=== PATIENT | female | born 1990 | race Hispanic/Latino ===

== ENCOUNTER 2018-02-27 16:42 | Inpatient (IN) | payer BC, MEDICAID ==
[2018-02-27] MEDS ORDERED: Sodium Chloride 0.9% 1,000 ML IV ONE ×2 (16:59→18:24)
[2018-02-27] MEDS ORDERED: Sodium Chloride 0.9% 1,000 ML ONE ×3 (17:10→21:51)
--- NOTE | 2018-02-27 17:15 | C.PDOC ---
History Of Present Illness <Leta Wilhelm - Last Filed: 02/27/18 19:00> <Jeet Blue - Last Filed: 02/27/18 20:58> 27 y/o female, with PMH of kidney stones, presents to the ER complaining of left sided flank and LLQ abdominal pain which began in the afternoon today. Patient states that she did not take any medications for the pain. Patient reports that the pain has become progressively worse and is now the worst pain and constant. She also feels nauseous and she vomited. Denies having dysuria, hematuria, fever, and chills. (Leta Wilhelm) Intractable pain- will call for obs (Jeet Blue) History Per: Patient History/Exam Limitations: no limitations Onset/Duration Of Symptoms: Hrs Current Symptoms Are (Timing): Still Present Severity: Severe Location Of Pain/Discomfort: LLQ Radiation Of Pain To:: Flank Associated Symptoms: Nausea, Vomiting. denies: Fever, Chills, Urinary Symptoms <Leta Wilhelm - Last Filed: 02/27/18 19:00> <eJet Blue - Last Filed: 02/27/18 20:58> Time Seen by Provider: 02/27/18 16:52 Chief Complaint (Nursing): Abdominal Pain Past Medical History Reviewed: Historical Data, Nursing Documentation, Vital Signs - Medical History PMH: No Chronic Diseases Surgical History: No Surg Hx Family History: States: No Known Family Hx - Social History Hx Alcohol Use: Yes Hx Substance Use: No - Immunization History Hx Tetanus Toxoid Vaccination: No Hx Influenza Vaccination: No Hx Pneumococcal Vaccination: No <Leta Wilhelm - Last Filed: 02/27/18 19:00> Vital Signs: Last Vital Signs Temp 97.7 F 02/27/18 18:32 Pulse 73 02/27/18 18:32 Resp 18 02/27/18 18:32 BP 113/75 02/27/18 18:32 Pulse Ox 100 02/27/18 19:00 Review Of Systems Constitutional: Negative for: Fever, Chills Gastrointestinal: Positive for: Nausea, Vomiting, Abdominal Pain (LLQ abdominal pain). Negative for: Diarrhea Genitourinary: Negative for: Dysuria, Hematuria <Leta Wilhelm - Last Filed: 02/27/18 19:00> Physical Exam - Physical Exam Appears: In Acute Distress (acute painful distress), Other (writhing in pain) Skin: Normal Color, Warm, Dry Head: Atraumatic, Normacephalic Eye(s): bilateral: Normal Inspection Nose: Normal Oral Mucosa: Moist Neck: Supple Chest: Symmetrical Cardiovascular: Rhythm Regular Respiratory: Normal Breath Sounds, No Rales, No Rhonchi, No Wheezing Gastrointestinal/Abdominal: Normal Exam, Soft, No Tenderness, No Guarding, No Rebound Extremity: Bilateral: Atraumatic, Normal Color And Temperature, Normal ROM Neurological/Psych: Oriented x3, Normal Speech <Leta Wilhelm - Last Filed: 02/27/18 19:00> ED Course And Treatment - Laboratory Results Result Diagrams: 02/27/18 17:27 02/27/18 17:27 O2 Sat by Pulse Oximetry: 100 (RA) Pulse Ox Interpretation: Normal - CT Scan/US CT - Abd & Pelv. Other Rad Studies (CT/US): Read By Radiologist, Radiology Report Reviewed CT/US Interpretation: PROCEDURE: CT Abdomen and Pelvis without Oral or IV contrast. HISTORY: LEFT FLANK PAIN. COMPARISON: None available. TECHNIQUE: Contiguous axial images of the abdomen and pelvis. No oral or IV contrast administered. Coronal and Sagittal reformats generated and reviewed. Radiation dose: Total exam DLP = 627.19 mGy-cm. This CT exam was performed using one or more of the following dose reduction techniques: Automated exposure control, adjustment of the mA and/or kV according to patient size, and/or use of iterative reconstruction technique. FINDINGS: There is limited evaluation of the solid organs without the administration of IV contrast. LOWER THORAX: No visible consolidation, pleural effusion, or pneumothorax. LIVER: Unremarkable unenhanced appearance. GALLBLADDER AND BILE DUCTS: Unremarkable unenhanced appearance. PANCREAS: Unremarkable unenhanced appearance. SPLEEN: Unremarkable unenhanced appearance. ADRENALS: Unremarkable unenhanced appearance. KIDNEYS AND URETERS: 3 mm proximal left ureteral calculus (series 3, image 82) with proximal hydroureter and fullness of the left renal pelvis. No right-sided hydronephrosis identified. BLADDER: Mildly thick-walled under distended urinary bladder. Small focus of air within the urinary bladder; correlate for recent instrumentation versus infection. REPRODUCTIVE: Uterus is present. APPENDIX: The appendix appears within normal limits of caliber. No secondary signs of acute appendicitis. BOWEL: The stomach is nondistended. Lack of oral contrast limits evaluation for bowel pathology. The bowel loops appear within normal limits of caliber without evidence of intestinal obstruction. PERITONEUM: No significant free fluid. No definite free air. LYMPH NODES: No bulky lymphadenopathy identified. VASCULATURE: No aortic aneurysm. BONES: No acute osseous abnormality is detected. OTHER FINDINGS: None. IMPRESSION: 3 mm proximal left ureteral calculus with proximal hydroureter and fullness of the left renal pelvis. Mildly thick-walled under distended urinary bladder. Small focus of air within the urinary bladder; correlate for recent instrumentation versus infection. Correlate with urinalysis. <Leta Wilhelm - Last Filed: 02/27/18 19:00> - Laboratory Results Result Diagrams: 02/27/18 17:27 02/27/18 17:27 <Jeet Blue - Last Filed: 02/27/18 20:58> Medical Decision Making <Leta Wilhelm - Last Filed: 02/27/18 19:00> <Jeet Blue - Last Filed: 02/27/18 20:58> Medical Decision Making: Impression: Left flank and LLQ abdominal Pain, Renal Colic Plan: * Labs * UA * Morphine IV * Toradol IV * Zofran IV Progress: Labs reviewed with no leukocytosis or other abnormality. Urine shows blood and many RBCs suggestive stone. Still pending CT. Patient continues to have pain. IV Lidocaine was ordered. 1757 CT shows 3 mm proximal left ureteral calculus with proximal hydroureter and fullness of the left renal pelvis. Patient continued to be observed in the ED. Flomax and IV NS was ordered. The patient still complained of pain, lidocaine was not readily available. 1844 Ordered additional Morphine. Case signed out to Dr Blue at 1899 pending re-eval dispo. (Leta Wilhelm) 1907 sign out recieved from DONTE Bullard- 3mm stone pending re-eval, given pain meds. Labs reviewed, Cr 0.7 imaging reviewed- L proximal utereral calculus w/ proximal hydroureter 2019 Pt still in pain, paged Medical service for admission 2043 07 page to medical service 2056 appreciate consult w/ Keli Hicks (MED) - to admit to her service appreciate consult w/ Dr. 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 - Scribe Statement The provider has reviewed the documentation as recorded by the Scribe <Leta Wilhelm - Last Filed: 02/27/18 19:00> <Jeet Blue - Last Filed: 02/27/18 20:58> - Scribe Statement Catalino Gonzales Provider Attestation All medical record entries made by the Scribe were at my direction and personally dictated by me. I have reviewed the chart and agree that the record accurately reflects my personal performance of the history, physical exam, medical decision making, and the department course for this patient. I have also personally directed, reviewed, and agree with the discharge instructions and disposition. (Leta Wilhelm)
[2018-02-27] MEDS ORDERED: Morphine 4 MG/ML VIAL ONE ×3 (17:17→21:51)
[2018-02-27 17:32] LABS: BASO % 0.4 % (0.0-2.0); EOS # 0.1 K/uL (0.0-0.7); EOS % 1.2 % (0.0-4.0); HEMOGLOBIN 12.7 g/dL (11.0-16.0); LYMPH # 2.4 K/uL (1.0-4.3); LYMPH % 34.1 % (20.0-40.0); MEAN CELL VOLUME 91.6 fL (81.0-99.0); MEAN CORPUSCULAR HEMOGLOBIN 30.3 pg (27.0-31.0); MEAN CORPUSCULAR HGB CONC 33.1 g/dL (33.0-37.0); MEAN PLATELET VOLUME 8.5 fL (7.2-11.7); MONO # 0.5 K/uL (0.0-0.8); MONO % 6.4 % (0.0-10.0); NEUT # 4.1 K/uL (1.8-7.0); NEUT % 57.9 % (50.0-75.0); RBC 4.19 Mil/uL (3.80-5.20); RED CELL DISTRIBUTION WIDTH 13.5 % (11.5-14.5); WHITE BLOOD COUNT 7.2 K/uL (4.8-10.8)
[2018-02-27 17:41] LABS: ALB/GLOB RATIO 1.7 (1.0-2.1); ALBUMIN 4.3 g/dL (3.5-5.0); ALT/SGPT 25 U/L (9-52); AST/SGOT 18 U/L (14-36); BLOOD UREA NITROGEN 11 mg/dL (7-17); CALCIUM 9.4 mg/dl (8.6-10.4); GFR NON-AFRICAN AMERICAN > 60; LIPASE 55 U/L (23-300)
[2018-02-27 17:48] LABS: SQUAMOUS EPITHIAL 1 /hpf (0-5); URINE AMORPHOUS SEDIMENT MODERATE /ul (<OCC); URINE BACTERIA RARE (<OCC); URINE BILIRUBIN NEGATIVE (NEGATIVE); URINE BLOOD 2+ (NEGATIVE); URINE CLARITY Hazy (Clear); URINE COLOR Yellow (YELLOW); URINE GLUCOSE (UA) NORMAL (Normal); URINE LEUKOCYTE ESTERASE TRACE Leu/uL (Negative); URINE PROTEIN NEGATIVE (NEGATIVE); URINE UROBILINOGEN NORMAL mg/dL (0.2-1.0)
[2018-02-27 17:52] LABS: HCG,QUALITATIVE URINE NEGATIVE (NEGATIVE)
[2018-02-27] MEDS ORDERED: SODIUM CHLORIDE 0.9% IV STA (18:02)
[2018-02-27] MEDS ORDERED: LIDOCAINE IV STA (18:02)
--- NOTE | 2018-02-27 18:13 | CT ---
PROCEDURE: CT Abdomen and Pelvis without Oral or IV contrast. HISTORY: LEFT FLANK PAIN COMPARISON: None available. TECHNIQUE: Contiguous axial images of the abdomen and pelvis. No oral or IV contrast administered. Coronal and Sagittal reformats generated and reviewed. Radiation dose: Total exam DLP = 627.19 mGy-cm. This CT exam was performed using one or more of the following dose reduction techniques: Automated exposure control, adjustment of the mA and/or kV according to patient size, and/or use of iterative reconstruction technique. FINDINGS: There is limited evaluation of the solid organs without the administration of IV contrast. LOWER THORAX: No visible consolidation, pleural effusion, or pneumothorax. LIVER: Unremarkable unenhanced appearance. GALLBLADDER AND BILE DUCTS: Unremarkable unenhanced appearance. PANCREAS: Unremarkable unenhanced appearance. SPLEEN: Unremarkable unenhanced appearance. ADRENALS: Unremarkable unenhanced appearance. KIDNEYS AND URETERS: 3 mm proximal left ureteral calculus (series 3, image 82) with proximal hydroureter and fullness of the left renal pelvis. No right-sided hydronephrosis identified. BLADDER: Mildly thick-walled under distended urinary bladder. Small focus of air within the urinary bladder; correlate for recent instrumentation versus infection. REPRODUCTIVE: Uterus is present. APPENDIX: The appendix appears within normal limits of caliber. No secondary signs of acute appendicitis. BOWEL: The stomach is nondistended. Lack of oral contrast limits evaluation for bowel pathology. The bowel loops appear within normal limits of caliber without evidence of intestinal obstruction. PERITONEUM: No significant free fluid. No definite free air. LYMPH NODES: No bulky lymphadenopathy identified. VASCULATURE: No aortic aneurysm. BONES: No acute osseous abnormality is detected. OTHER FINDINGS: None. IMPRESSION: 3 mm proximal left ureteral calculus with proximal hydroureter and fullness of the left renal pelvis. Mildly thick-walled under distended urinary bladder. Small focus of air within the urinary bladder; correlate for recent instrumentation versus infection. Correlate with urinalysis.
--- NOTE | 2018-02-27 21:56 | CP.PCM.CON ---
History of Present Illness - History of Present Illness History of Present Illness: Discussed with ER doc. 3mm stone in left upper ureter with out sig hydro temp or wbc elevation.his size wiSuggest iv fluids ,pain meds strain all urine for stone.Most stones of this size will pass spontanously,will follow Dr Banks Past Patient History - Past Social History Smoking Status: Never Smoked - NEUROLOGICAL Other/Comment: Brain malformation surgery x2 yrs ago - PSYCHIATRIC Hx Substance Use: No - SURGICAL HISTORY Other/Comment: Right shoulder surgery 2007, wishdom tooth extraction 2006 - ANESTHESIA Hx Anesthesia: No Meds Allergies/Adverse Reactions: Allergies Allergy/AdvReac Type Severity Reaction Status Date / Time No Known Allergies Allergy Unverified 02/27/18 16:47 - Medications Medications: Current Medications Sodium Chloride (Sodium Chloride 0.9%) 1,000 mls @ 100 mls/hr IV .Q10H BETHANY Tamsulosin HCl (Flomax) 0.4 mg PO ONCE ONE Stop: 02/28/18 19:32 Last Admin: 02/27/18 20:17 Dose: 0.4 mg Results - Vital Signs Recent Vital Signs: Last Vital Signs Temp 98.9 F 02/27/18 21:41 Pulse 81 02/27/18 21:41 Resp 16 02/27/18 21:41 BP 108/64 02/27/18 21:41 Pulse Ox 99 02/27/18 21:41 - Labs Result Diagrams: 02/27/18 17:27 02/27/18 17:27 Labs: Laboratory Results - last 24 hr 02/27/18 02/27/18 02/27/18 17:27 17:27 17:27 WBC 7.2 RBC 4.19 Hgb 12.7 Hct 38.4 MCV 91.6 MCH 30.3 MCHC 33.1 RDW 13.5 Plt Count 261 MPV 8.5 Neut % (Auto) 57.9 Lymph % (Auto) 34.1 [place] % (Auto) 6.4 Eos % (Auto) 1.2 Baso % (Auto) 0.4 Neut # (Auto) 4.1 Lymph # (Auto) 2.4 [place] # (Auto) 0.5 Eos # (Auto) 0.1 Baso # (Auto) 0.0 Sodium 136 Potassium 3.9 Chloride 100 Carbon Dioxide 23 Anion Gap 17 BUN 11 Creatinine 0.7 Est GFR ( Amer) > 60 Est GFR (Non-Af Amer) > 60 Random Glucose 94 Calcium 9.4 Total Bilirubin 0.5 AST 18 ALT 25 Alkaline Phosphatase 62 Total Protein 6.9 Albumin 4.3 Globulin 2.6 Albumin/Globulin Ratio 1.7 Lipase 55 Urine Color Yellow Urine Clarity Hazy Urine pH 7.0 Ur Specific [place] 1.011 Urine Protein Negative Urine Glucose (UA) Normal Urine Ketones Negative Urine Blood 2+ H Urine Nitrate Negative Urine Bilirubin Negative Urine Urobilinogen Normal Ur Leukocyte Esterase Trace Urine WBC (Auto) 4 Urine RBC (Auto) 34 H Ur Squamous Epith Cells 1 Amorphous Sediment Moderate H Urine Bacteria Rare Urine HCG, Qual Negative
[2018-02-27] MEDS ORDERED: Sodium Chloride 0.9% 1,000 ML IV SCH (22:00)
[2018-02-27] MEDS: Sodium Chloride 0.9% 1,000 ML IV SCH (23:00)
[2018-02-28] MEDS: Sodium Chloride 0.9% 1,000 ML IV SCH ×3 (06:01→22:17)
--- NOTE | 2018-02-28 09:51 | RAD ---
Date of service: 02/28/2018 HISTORY: kidney stone see ct COMPARISON: No prior. FINDINGS: BOWEL: Normal bowel gas pattern. No evidence of bowel obstruction. No masses. There is a roughly 5 mm calcification overlying the tip of the left L3 transverse process. No other abnormal intra-abdominal calcifications are appreciated. There is no hepatic or splenic enlargement appreciated. BONES: Normal. OTHER FINDINGS: None. IMPRESSION: Proximal left ureteral calculus.
--- NOTE | 2018-02-28 09:56 | CP.PCM.PN ---
Subjective - Date & Time of Evaluation Date of Evaluation: 02/28/18 Time of Evaluation: 09:56 - Subjective Subjective: H&P dictated #[id number] Objective - Vital Signs/Intake and Output Vital Signs (last 24 hours): Temp Pulse Resp BP Pulse Ox 102.4 F H 109 H 20 105/64 95 02/28/18 08:46 02/28/18 08:46 02/28/18 08:46 02/28/18 08:46 02/28/18 08:46 - Medications Medications: Current Medications Sodium Chloride (Sodium Chloride 0.9%) 1,000 mls @ 100 mls/hr IV .Q10H BETHANY Last Admin: 02/27/18 21:55 Dose: 100 mls/hr Sodium Chloride (Sodium Chloride 0.9%) 1,000 mls @ 125 mls/hr IV .Q8H BETHANY Last Admin: 02/28/18 06:01 Dose: 125 mls/hr Ceftriaxone Sodium 1 gm/ (Sodium Chloride) 100 mls @ 100 mls/hr IVPB DAILY BETHANY PRN Reason: Protocol Morphine Sulfate (Morphine) 4 mg IVP Q4 PRN PRN Reason: pain Last Admin: 02/28/18 05:52 Dose: 4 mg Tamsulosin HCl (Flomax) 0.4 mg PO ONCE ONE Stop: 02/28/18 19:32 Last Admin: 02/27/18 20:17 Dose: 0.4 mg - Labs Labs: 02/27/18 17:27 02/27/18 17:27
--- NOTE | 2018-02-28 10:40 | US ---
Date of service: 02/28/2018 PROCEDURE: Ultrasound of the Kidneys HISTORY: kidney stone r/o pyelonephritis COMPARISON: CT abdomen pelvis without contrast performed 02/27/18. TECHNIQUE: Sonogram of the kidneys. FINDINGS: RIGHT KIDNEY: Measures: 12.7 x 4.3 x 5.7 cm. Nonobstructing 7 mm upper pole calculus. No hydronephrosis. LEFT KIDNEY: Measures: 13.5 x 7.1 x 5.4 cm. Nonobstructing 5 mm midpole calculus. Mild left-sided hydronephrosis. OTHER FINDINGS: None. IMPRESSION: Bilateral nonobstructing renal calculi. Mild left-sided hydronephrosis. Please note that pyelonephritis cannot be excluded on the basis of sonography alone. Correlate clinically.
--- NOTE | 2018-02-28 11:52 | CP.PCM.PN ---
Subjective - Date & Time of Evaluation Date of Evaluation: 02/28/18 Time of Evaluation: 11:49 - Subjective Subjective: PT examined chart reviewed pt more comfortable now KUB shows stone still in upper ureter. Suggest comtinur present rx if pt fails to pass stone will stent tomorrow or fri. Jocelyn Objective - Vital Signs/Intake and Output Vital Signs (last 24 hours): Temp Pulse Resp BP Pulse Ox 102.4 F H 109 H 20 105/64 95 02/28/18 08:46 02/28/18 08:46 02/28/18 08:46 02/28/18 08:46 02/28/18 08:46 - Medications Medications: Current Medications Sodium Chloride (Sodium Chloride 0.9%) 1,000 mls @ 125 mls/hr IV .Q8H BETHANY Last Admin: 02/28/18 06:01 Dose: 125 mls/hr Ceftriaxone Sodium 1 gm/ (Sodium Chloride) 100 mls @ 100 mls/hr IVPB DAILY BETHANY PRN Reason: Protocol Last Admin: 02/28/18 11:44 Dose: 100 mls/hr Ketorolac Tromethamine (Toradol) 30 mg IVP Q8H PRN PRN Reason: Pain, moderate (4-7) Morphine Sulfate (Morphine) 4 mg IVP Q3H PRN PRN Reason: Pain, severe (8-10) Tamsulosin HCl (Flomax) 0.4 mg PO ONCE ONE Stop: 02/28/18 19:32 Last Admin: 02/27/18 20:17 Dose: 0.4 mg - Labs Labs: 02/27/18 17:27 02/27/18 17:27
[2018-02-28 12:29] LABS: ALB/GLOB RATIO 1.2 (1.0-2.1); ALBUMIN 2.8 g/dL (3.5-5.0); ALT/SGPT 23 U/L (9-52); AST/SGOT 17 U/L (14-36); BLOOD UREA NITROGEN 11 mg/dL (7-17); CALCIUM 7.6 mg/dl (8.6-10.4); GFR NON-AFRICAN AMERICAN > 60
[2018-02-28 13:54] LABS: BASO % 0.2 % (0.0-2.0); EOS # 0.1 K/uL (0.0-0.7); EOS % 0.7 % (0.0-4.0); HEMOGLOBIN 10.8 g/dL (11.0-16.0); LYMPH # 0.8 K/uL (1.0-4.3); LYMPH % 4.8 % (20.0-40.0); MEAN CELL VOLUME 91.6 fL (81.0-99.0); MEAN CORPUSCULAR HEMOGLOBIN 30.6 pg (27.0-31.0); MEAN CORPUSCULAR HGB CONC 33.4 g/dL (33.0-37.0); MEAN PLATELET VOLUME 8.1 fL (7.2-11.7); MONO # 0.2 K/uL (0.0-0.8); MONO % 1.1 % (0.0-10.0); NEUT # 15.3 K/uL (1.8-7.0); NEUT % 93.2 % (50.0-75.0); PLATELET COUNT 146 K/uL (130-400); RBC 3.52 Mil/uL (3.80-5.20); RED CELL DISTRIBUTION WIDTH 13.2 % (11.5-14.5)
[2018-02-28] MEDS: Morphine 4 MG/ML VIAL IVP PRN ×3 (13:57→20:38)
[2018-02-28 14:06] LABS: WHITE BLOOD COUNT 16.4 K/uL (4.8-10.8)
[2018-02-28 14:55] LABS: BANDS 39 % (0-2); EOSINOPHIL 1 % (0-4); LYMPHOCYTE 7 % (20-40); MONOCYTE 1 % (0-10); NEUTROPHIL 52 % (50-75); PLATELET ESTIMATE NORMAL (NORMAL); TOTAL CELLS COUNTED 100
--- NOTE | 2018-02-28 15:59 | RAD ---
Date of service: 02/28/2018 HISTORY: follow progress of stone COMPARISON: No prior. FINDINGS: BOWEL: Nonobstructive bowel gas pattern identified. No abnormal intra-abdominal calcifications although phlebolith like calcifications are identified in the inferior left pelvic soft tissues. No free intra peritoneal gas collection. BONES: Normal. OTHER FINDINGS: None. IMPRESSION: Limited phleboliths suggested suspected at the inferior left pelvis soft tissues with no abnormal intra-abdominal calcifications appreciable. Nonobstructive bowel gas pattern.
[2018-02-28] MEDS: Magnesium Sulfate 1 gm in D5W 1 GM/100 ML BAG IVPB SCH ×2 (16:12→22:29)
--- NOTE | 2018-02-28 17:43 | CP.PCM.CON ---
History of Present Illness - History of Present Illness History of Present Illness: 27 y/o female, with PMH of kidney stones, presents to the ER complaining of left sided flank and LLQ abdominal pain which began in the afternoon today. Patient states that she did not take any medications for the pain. Patient reports that the pain has become progressively worse and is now the worst pain and constant. She also feels nauseous and she vomited. was seen earlier by Dr Banks c/o now of severe pain and high fever may possibly be passing the stone? Review of Systems - Constitutional Constitutional: As Per HPI, Chills, Fever - EENT Eyes: absent: As Per HPI, Blind Spots, Blurred Vision, Change in Vision, Decreased Night Vision, Diplopia, Discharge, Dry Eye, Exophthalmos, Floaters, Irritation, Itchy Eyes, Loss of Peripheral Vision, Pain, Photophobia, Requires Corrective Lenses, Sees Flashes, Spots in Vision, Tunnel Vision, Other Visual Disturbances, Loss of Vision, Other Ears: absent: As Per HPI, Decreased Hearing, Ear Discharge, Ear Pain, Tinnitus, Abnormal Hearing, Disequilibrium, Dizziness, Other Nose/Mouth/Throat: absent: As Per HPI, Epistaxis, Nasal Congestion, Nasal Discharge, Nasal Obstruction, Nasal Trauma, Nose Pain, Post Nasal Drip, Sinus Pain, Sinus Pressure, Bleeding Gums, Change in Voice, Dental Pain, Dry Mouth, Dysphagia, Halitosis, Hoarsness, Lip Swelling, Mouth Lesions, Mouth Pain, Odynophagia, Sore Throat, Throat Swelling, Tongue Swelling, Facial Pain, Neck Pain, Neck Mass, Other - Breasts Breasts: absent: As Per HPI, Change in Shape, Mass, Pain, Nipple Discharge, Nipple Inversion, Skin Changes, Swelling, Other - Cardiovascular Cardiovascular: absent: As Per HPI, Acrocyanosis, Chest Pain, Chest Pain at Rest , Chest Pain with Activity, Claudication, Diaphoresis, Dyspnea, Dyspnea on Exertion, Edema, Irregular Heart Rhythm, Pain Radiating to Arm/Neck/Jaw, Leg Edema, Leg Ulcers, Lightheadedness, Orthopnea, Palpitations, Paroxysmal Nocturnal Dyspnea, Pedal Edema, Radiating Pain, Rapid Heart Rate, Slow Heart Rate, Syncope, Other - Respiratory Respiratory: absent: As Per HPI, Cough, Dyspnea, Hemoptysis, Dyspnea on Exertion , Wheezing, Snoring, Stridor, Pain on Inspiration, Chest Congestion, Excessive Mucous Production, Change in Mucous Color, Pain with Coughing, Other - Gastrointestinal Gastrointestinal: As Per HPI, Abdominal Pain - Genitourinary Genitourinary: As Per HPI, Change in Urinary Stream, Difficulty Urinating, Dysuria - Reproductive: Female Reproductive:Female: absent: As Per HPI, Amenorrhea, Amenorrhea/ Control, Currently Menstual, Cycle <21 Days, Cycle >35 Days, Cycle Variable, Menses 1-7 Days, Menses >/= 8 Days, Menses Variable, Cycle > 4 Weeks Between, No Menses for 6 Months, Heavy Menses, Light Menses, Normal Menses, Spotting Between Cycles , S/P Hysterectomy, Menopausal, Post Menopausal, Premenarche, Abnormal Vaginal Bleeding, Dysmenorrhea, Dyspareunia, Genital Lesions, Genital Pruritis, Pelvic Pain, Prolapse Symptoms, Sexual Dysfunction, Vaginal Discharge, Vaginal Dryness , Vaginal Odor, Vaginal Pruritis, Other - Menstruation Menstruation: absent: As Per HPI, Amenorrhea, Amenorrhea/ Control, Currently Menstual, Cycle <21 Days, Cycle >35 Days, Cycle Variable, Menses 1-7 Days, Menses >/= 8 Days, Menses Variable, Cycle > 4 Weeks Between, No Menses for 6 Months, Heavy Menses, Light Menses, Normal Menses, Spotting Between Cycles , S/P Hysterectomy, Menopausal, Post Menopausal, Premenarche, Abnormal Vaginal Bleeding, Dysmenorrhea, Other - Musculoskeletal Musculoskeletal: absent: As Per HPI, Abnormal Gait, Arthralgias, Atrophy, Back Pain, Deformity, Joint Swelling, Limited Range of Motion, Loss of Height, Muscle Cramps, Muscle Weakness, Myalgias, Neck Pain, Numbness, Radiating Pain into Limb, Stiffness, Tingling, Other - Integumentary Integumentary: absent: As Per HPI, Acne, Alopecia, Bleeding Lesions, Change in Hair, Change in Nails, Change in Pigmentation, Changing Lesions, Dry Skin, Erythema, Furuncle, Hirsutism, Lesions, New Lesions, Non-Healing Lesions, Photosensitivity, Pruritus, Rash, Skin Pain, Skin Ulcer, Sores, Striae, Swelling , Unusual Bruising, Wounds, Jaundice, Other - Neurological Neurological: absent: As Per HPI, Abnormal Gait, Abnormal Hearing, Abnormal Movements, Abnormal Speech, Behavioral Changes, Burning Sensations, Confusion, Convulsions, Disequilibrium, Dizziness, Numbness, Focal Weakness, Frequent Falls , Headaches, Lack of Coordination, Loss of Vision, Memory Loss, Paresthesias, Radicular Pain, Restless Legs, Sensory Deficit, Syncope, Tingling, Tremor, Vertigo, Weakness, Other Visual Disturbances, Other - Psychiatric Psychiatric: absent: As Per HPI, Abnormal Sleep Pattern, Anhedonia, Anxiety, Auditory Hallucinations, Behavioral Changes, Change in Appetite, Change in Libido, Confusion, Depression, Difficulty Concentrating, Hallucinations, Homicidal Ideation, Hopelessness, Irritability, Memory Loss, Mood Swings, Panic Attacks, Paranoia, Suicidal Ideation, Visual Hallucinations, Tactile Hallucinations, Other - Endocrine Endocrine: absent: As Per HPI, Change in Body Appearance, Change in Libido, Cold Intolorance, Deepening of Voice, Excessive Sweating, Fatigue, Flushing, Heat Intolorance, Increase in Ring/Shoe/Hat Size, Palpitations, Polydipsia, Polyphagia, Polyuria, Other - Hematologic/Lymphatic Hematologic: As Per HPI Past Patient History - Past Social History Smoking Status: Never Smoked - NEUROLOGICAL Other/Comment: Brain malformation surgery x2 yrs ago - MUSCULOSKELETAL/RHEUMATOLOGICAL Hx Falls: No - PSYCHIATRIC Hx Substance Use: No - SURGICAL HISTORY Other/Comment: Right shoulder surgery 2007, wishdom tooth extraction 2006 - ANESTHESIA Hx Anesthesia: No Meds Allergies/Adverse Reactions: Allergies Allergy/AdvReac Type Severity Reaction Status Date / Time No Known Allergies Allergy Unverified 02/27/18 16:47 - Medications Medications: Current Medications Acetaminophen (Tylenol 325mg Tab) 650 mg PO Q6 PRN PRN Reason: temp 101 and above Last Admin: 02/28/18 17:20 Dose: 650 mg Sodium Chloride (Sodium Chloride 0.9%) 1,000 mls @ 125 mls/hr IV .Q8H BETHANY Last Admin: 02/28/18 14:22 Dose: Not Given Ceftriaxone Sodium 1 gm/ (Sodium Chloride) 100 mls @ 100 mls/hr IVPB DAILY BETHANY PRN Reason: Protocol Last Admin: 02/28/18 11:44 Dose: 100 mls/hr Ketorolac Tromethamine (Toradol) 30 mg IVP Q8H PRN PRN Reason: Pain, moderate (4-7) Last Admin: 02/28/18 17:21 Dose: 30 mg Morphine Sulfate (Morphine) 4 mg IVP Q3H PRN PRN Reason: Pain, severe (8-10) Last Admin: 02/28/18 16:55 Dose: 4 mg Ondansetron HCl (Zofran Inj) 4 mg IVP Q8 PRN PRN Reason: nausea and vomitting Last Admin: 02/28/18 17:28 Dose: 4 mg Tamsulosin HCl (Flomax) 0.4 mg PO ONCE ONE Stop: 02/28/18 19:32 Last Admin: 02/27/18 20:17 Dose: 0.4 mg Physical Exam - Constitutional Appears: In Acute Distress - Head Exam Head Exam: ATRAUMATIC, NORMAL INSPECTION, NORMOCEPHALIC - Eye Exam Eye Exam: EOMI, PERRL. absent: Scleral icterus - ENT Exam ENT Exam: Mucous Membranes Dry, Normal External Ear Exam, Normal Oropharynx - Neck Exam Neck exam: Negative for: Lymphadenopathy - Respiratory Exam Respiratory Exam: Decreased Breath Sounds, Clear to Auscultation Bilateral - Cardiovascular Exam Cardiovascular Exam: REGULAR RHYTHM, +S1, +S2 - GI/Abdominal Exam GI & Abdominal Exam: Diminished Bowel Sounds, Distended, Guarding, Soft, Tenderness. absent: Organomegaly, Rebound, Rigid - Rectal Exam Rectal Exam: Deferred - Exam Exam: NORMAL INSPECTION - Extremities Exam Extremities exam: Positive for: pedal pulses present. Negative for: calf tenderness, pedal edema, tenderness - Back Exam Back exam: absent: CVA tenderness (L), CVA tenderness (R), paraspinal tenderness - Neurological Exam Neurological exam: Alert, CN II-XII Intact, Oriented x3, Reflexes Normal - Psychiatric Exam Psychiatric exam: Anxious - Skin Skin Exam: Dry Results - Vital Signs Recent Vital Signs: Last Vital Signs Temp 101.1 F H 02/28/18 15:30 Pulse 107 H 02/28/18 15:30 Resp 20 02/28/18 15:30 BP 100/63 02/28/18 15:30 Pulse Ox 98 02/28/18 15:30 - Labs Result Diagrams: 02/28/18 13:48 02/28/18 11:05 Labs: Laboratory Results - last 24 hr 02/27/18 02/27/18 02/28/18 17:27 17:27 11:05 WBC RBC Hgb Hct MCV MCH MCHC RDW Plt Count MPV Neut % (Auto) Lymph % (Auto) [place] % (Auto) Eos % (Auto) Baso % (Auto) Neut # (Auto) Lymph # (Auto) [place] # (Auto) Eos # (Auto) Baso # (Auto) Neutrophils % (Manual) Band Neutrophils % Lymphocytes % (Manual) Monocytes % (Manual) Eosinophils % (Manual) Platelet Estimate RBC Morphology Sodium 136 133 Potassium 3.9 3.5 L Chloride 100 102 Carbon Dioxide 23 23 Anion Gap 17 11 BUN 11 11 Creatinine 0.7 1.0 Est GFR ( Amer) > 60 > 60 Est GFR (Non-Af Amer) > 60 > 60 Random Glucose 94 126 H Calcium 9.4 7.6 L Phosphorus 2.1 L Magnesium 1.3 L Total Bilirubin 0.5 0.3 AST 18 17 ALT 25 23 Alkaline Phosphatase 62 40 Total Protein 6.9 5.2 L Albumin 4.3 2.8 L D Globulin 2.6 2.4 Albumin/Globulin Ratio 1.7 1.2 Lipase 55 Urine Color Yellow Urine Clarity Hazy Urine pH 7.0 Ur Specific [place] 1.011 Urine Protein Negative Urine Glucose (UA) Normal Urine Ketones Negative Urine Blood 2+ H Urine Nitrate Negative Urine Bilirubin Negative Urine Urobilinogen Normal Ur Leukocyte Esterase Trace Urine WBC (Auto) 4 Urine RBC (Auto) 34 H Ur Squamous Epith Cells 1 Amorphous Sediment Moderate H Urine Bacteria Rare Urine HCG, Qual Negative 02/28/18 13:48 WBC 16.4 H D RBC 3.52 L Hgb 10.8 L Hct 32.2 L MCV 91.6 MCH 30.6 MCHC 33.4 RDW 13.2 Plt Count 146 D MPV 8.1 Neut % (Auto) 93.2 H Lymph % (Auto) 4.8 L [place] % (Auto) 1.1 Eos % (Auto) 0.7 Baso % (Auto) 0.2 Neut # (Auto) 15.3 H Lymph # (Auto) 0.8 L [place] # (Auto) 0.2 Eos # (Auto) 0.1 Baso # (Auto) 0.0 Neutrophils % (Manual) 52 Band Neutrophils % 39 H* Lymphocytes % (Manual) 7 L Monocytes % (Manual) 1 Eosinophils % (Manual) 1 Platelet Estimate Normal RBC Morphology Normal Sodium Potassium Chloride Carbon Dioxide Anion Gap BUN Creatinine Est GFR ( Amer) Est GFR (Non-Af Amer) Random Glucose Calcium Phosphorus Magnesium Total Bilirubin AST ALT Alkaline Phosphatase Total Protein Albumin Globulin Albumin/Globulin Ratio Lipase Urine Color Urine Clarity Urine pH Ur Specific [place] Urine Protein Urine Glucose (UA) Urine Ketones Urine Blood Urine Nitrate Urine Bilirubin Urine Urobilinogen Ur Leukocyte Esterase Urine WBC (Auto) Urine RBC (Auto) Ur Squamous Epith Cells Amorphous Sediment Urine Bacteria Urine HCG, Qual Assessment & Plan (1) Nephrolithiasis Status: Acute - Assessment and Plan (Free Text) Assessment: fever UTI nephrolithisais no pyelo clinically Dr Banks to evaluate Plan: cont IV antibiotics
[2018-02-28] MEDS ORDERED: Magnesium Sulfate 1 gm in D5W 1 GM/100 ML BAG IVPB SCH (21:00)
[2018-02-28] MEDS ORDERED: Sodium Chloride 0.9% 1,000 ML IV ONE (21:32)
[2018-02-28] MEDS: Meropenem 1 GM in Sodium Chloride 0.9% 100 ML IVPB SCH (22:51)
[2018-03-01 00:31] LABS: ARTERIAL BLOOD GAS HCO3 18.2 mmol/L (21-28); ARTERIAL BLOOD GAS O2 SAT 99.8 % (95-98); ARTERIAL BLOOD GAS PCO2 28 mm/Hg (35-45); ARTERIAL BLOOD GAS PH 7.35 (7.35-7.45); ARTERIAL BLOOD GAS PO2 101 mm/Hg (80-100); ARTERIAL BLOOD GAS TCO2 16.4 mmol/L (22-28)
--- NOTE | 2018-03-01 00:45 | CP.PCM.CON ---
History of Present Illness - History of Present Illness History of Present Illness: 27yo F. PMHx nephrolithiasis, brain surgery for congenital cysts/malformation. p/w recurrent left kidney stone, 3mm, c/b gram negative sepsis. Transferred to ICU for closer monitoring. Review of Systems - Review of Systems All systems: reviewed and no additional remarkable complaints except - Genitourinary Genitourinary: Flank Pain Past Patient History - Past Social History Smoking Status: Never Smoked - NEUROLOGICAL Other/Comment: Brain malformation surgery x2 yrs ago - MUSCULOSKELETAL/RHEUMATOLOGICAL Hx Falls: No - PSYCHIATRIC Hx Substance Use: No - SURGICAL HISTORY Other/Comment: Right shoulder surgery 2007, wishdom tooth extraction 2006 - ANESTHESIA Hx Anesthesia: No Meds Allergies/Adverse Reactions: Allergies Allergy/AdvReac Type Severity Reaction Status Date / Time No Known Allergies Allergy Unverified 02/27/18 16:47 - Medications Medications: Current Medications Acetaminophen (Tylenol 325mg Tab) 650 mg PO Q6 PRN PRN Reason: temp 101 and above Last Admin: 02/28/18 17:20 Dose: 650 mg Sodium Chloride (Sodium Chloride 0.9%) 1,000 mls @ 125 mls/hr IV .Q8H BETHANY Last Admin: 02/28/18 22:17 Dose: 125 mls/hr Cefepime HCl 1 gm/ Dextrose 50 mls @ 100 mls/hr IVPB Q8H BETHANY PRN Reason: Protocol Last Admin: 02/28/18 19:03 Dose: 100 mls/hr Gentamicin Sulfate 350 mg/ (Sodium Chloride) 258.75 mls @ 250 mls/hr IVPB Q24H BETHANY PRN Reason: Protocol Meropenem 1 gm/ Sodium (Chloride) 100 mls @ 100 mls/hr IVPB Q6H BETHANY PRN Reason: Protocol Last Admin: 02/28/18 22:51 Dose: 100 mls/hr Ketorolac Tromethamine (Toradol) 30 mg IVP Q8H PRN PRN Reason: Pain, moderate (4-7) Last Admin: 02/28/18 17:21 Dose: 30 mg Morphine Sulfate (Morphine) 1 mg IVP Q3H PRN PRN Reason: Pain, severe (8-10) Ondansetron HCl (Zofran Inj) 4 mg IVP Q8 PRN PRN Reason: nausea and vomitting Last Admin: 02/28/18 17:28 Dose: 4 mg Physical Exam - Constitutional Appears: Toxic - Head Exam Head Exam: ATRAUMATIC, NORMAL INSPECTION, NORMOCEPHALIC - Eye Exam Eye Exam: EOMI, Normal appearance, PERRL Pupil Exam: NORMAL ACCOMODATION, PERRL - ENT Exam ENT Exam: Mucous Membranes Dry - Respiratory Exam Respiratory Exam: Clear to Auscultation Bilateral, NORMAL BREATHING PATTERN - Cardiovascular Exam Cardiovascular Exam: Tachycardia - GI/Abdominal Exam GI & Abdominal Exam: Normal Bowel Sounds, Soft. absent: Tenderness - Neurological Exam Neurological exam: Alert, CN II-XII Intact, Oriented x3 - Psychiatric Exam Psychiatric exam: Anxious Results - Vital Signs Recent Vital Signs: Last Vital Signs Temp 99.1 F 03/01/18 00:00 Pulse 110 H 03/01/18 00:00 Resp 20 03/01/18 00:00 BP 89/59 L 03/01/18 00:00 Pulse Ox 97 03/01/18 00:00 - Labs Result Diagrams: 02/28/18 13:48 02/28/18 11:05 Labs: Laboratory Results - last 24 hr 02/28/18 02/28/18 02/28/18 11:05 13:48 19:50 WBC 16.4 H D RBC 3.52 L Hgb 10.8 L Hct 32.2 L MCV 91.6 MCH 30.6 MCHC 33.4 RDW 13.2 Plt Count 146 D MPV 8.1 Neut % (Auto) 93.2 H Lymph % (Auto) 4.8 L [place] % (Auto) 1.1 Eos % (Auto) 0.7 Baso % (Auto) 0.2 Neut # (Auto) 15.3 H Lymph # (Auto) 0.8 L [place] # (Auto) 0.2 Eos # (Auto) 0.1 Baso # (Auto) 0.0 Neutrophils % (Manual) 52 Band Neutrophils % 39 H* Lymphocytes % (Manual) 7 L Monocytes % (Manual) 1 Eosinophils % (Manual) 1 Platelet Estimate Normal RBC Morphology Normal Puncture Site pCO2 pO2 HCO3 ABG pH ABG Total CO2 ABG O2 Saturation ABG Base Excess [place] Test ABG Potassium A-a O2 Difference Respiratory Index Glucose Lactate FiO2 Sodium 133 Potassium 3.5 L Chloride 102 Carbon Dioxide 23 Anion Gap 11 BUN 11 Creatinine 1.0 Est GFR ( Amer) > 60 Est GFR (Non-Af Amer) > 60 Random Glucose 126 H Lactic Acid Calcium 7.6 L Phosphorus 2.1 L Magnesium 1.3 L Total Bilirubin 0.3 AST 17 ALT 23 Alkaline Phosphatase 40 Total Protein 5.2 L Albumin 2.8 L D Globulin 2.4 Albumin/Globulin Ratio 1.2 Procalcitonin 7.15 H Arterial Blood Potassium 02/28/18 03/01/18 19:50 00:25 WBC RBC Hgb Hct MCV MCH MCHC RDW Plt Count MPV Neut % (Auto) Lymph % (Auto) [place] % (Auto) Eos % (Auto) Baso % (Auto) Neut # (Auto) Lymph # (Auto) [place] # (Auto) Eos # (Auto) Baso # (Auto) Neutrophils % (Manual) Band Neutrophils % Lymphocytes % (Manual) Monocytes % (Manual) Eosinophils % (Manual) Platelet Estimate RBC Morphology Puncture Site Lb pCO2 28 L pO2 101 H HCO3 18.2 L ABG pH 7.35 ABG Total CO2 16.4 L ABG O2 Saturation 99.8 H ABG Base Excess -8.6 L [place] Test Na ABG Potassium 2.9 L A-a O2 Difference 577.0 Respiratory Index 5.7 Glucose 130 H Lactate 2.9 H FiO2 100.0 Sodium 135.0 Potassium Chloride 108.0 H Carbon Dioxide Anion Gap BUN Creatinine Est GFR ( Amer) Est GFR (Non-Af Amer) Random Glucose Lactic Acid 3.5 H Calcium Phosphorus Magnesium Total Bilirubin AST ALT Alkaline Phosphatase Total Protein Albumin Globulin Albumin/Globulin Ratio Procalcitonin Arterial Blood Potassium 2.9 L Assessment & Plan (1) Nephrolithiasis Assessment and Plan: 27yo F. PMHx nephrolithiasis, brain surgery for congenital cysts/malformation. p/w recurrent left kidney stone, 3mm, c/b gram negative sepsis. Neuro: alert and oriented x 3 Pulm: tachypnea, and hypoxia, obtaining CXR, currently on NRB. CV: hypotensive, fluid responsive, may need to start Levophed. Hem: no acute issues Renal: oliguria, LR@150 Endo: no acute issues GI: NPO ID: sepsis from obstructive uropathy secondary to left ureteral nephrolithiasis , now with gram negative bacteremia, continue Meropenem and Gentamicin. DVT proph - heparin sq GI proph - not currently indicated zimmer for strict I/O's during acute illness Code status - full code Critical Care Time spent 35 minutes The documented time is cumulative and includes review of patient data/exams/labs /chart review and examination of the patient on rounds and throughout the day; time is exclusive of any procedures or teaching time. Status: Acute
[2018-03-01] MEDS ORDERED: HYDROmorphone 1 mg/ml ISec IVP STA (01:07)
[2018-03-01] MEDS ORDERED: Lactated Ringer's 1,000 ML IV ONE (01:29)
--- NOTE | 2018-03-01 02:23 | HP ---
CHIEF COMPLAINT: Left flank pain which started yesterday afternoon, progressively getting worse, associated with nausea and vomiting. HISTORY OF PRESENT ILLNESS: Ms. Owens is a 27-year-old female with past medical history of renal stones at age 19, status post Chiari malformation surgery, not on any antiseizure medication, depression, seasonal allergies, and migraine headaches, who has been following up the doctors from the [facility], came into the emergency room, brought in by EMS as the patient started having left flank pain which started yesterday afternoon while she was at work. As per the patient, she was at work, started suddenly noticing left flank pain, was sharp in nature, radiating down, progressively got worse, pain was 10/10 associated with nausea and vomiting. Denied any headache or dizziness. Denied any chest pain, shortness of breath, or wheezing. Denied any diarrhea or constipation. Denied any urinary complaints. Denied any leg pains or leg cramps. Denied any other neurologic symptoms. PAST MEDICAL HISTORY: As described, renal stones, Chiari malformation history, migraine headaches, and depression. PAST SURGICAL HISTORY: Chiari malformation surgery done about 5 years ago in [place]; right shoulder surgery in 2007. FAMILY HISTORY: Kidney stones in uncle. PERSONAL HISTORY: She is single, not having any children, working at [employer]. SOCIAL HISTORY: Denies smoking, drinks alcohol socially. Denies any drug abuse. ALLERGIES: NO KNOWN DRUG ALLERGIES. MEDICATIONS: At home include Zoloft 50 mg daily and Claritin as needed. REVIEW OF SYSTEMS: As described in history of present illness, all other systems reviewed and were found to be negative. PHYSICAL EXAMINATION: GENERAL: A young female, lying in bed, in no acute distress. VITAL SIGNS: Blood pressure 105/64, pulse 109, respirations 20, temperature 102.4 degrees Fahrenheit, and O2 saturations 95% on room air. HEENT: Pupils equal, round, and reacting to light and accommodation. Extraocular muscles are intact. No icterus, no pallor, no oral thrush, no pharyngeal congestion. NECK: Supple, no JVD. LUNGS: Bilateral vesicular breath sounds. No wheezing, no rhonchi. CVS: S1 and S2 present, regular. ABDOMEN: Soft, left flank tenderness noted and tenderness in the left lumbar and left lower quadrant regions. No guarding, no rigidity, and no rebound tenderness noted. CENTRAL NERVOUS SYSTEM: Alert, awake, and oriented x3, no focal deficits noted. EXTREMITIES: No edema, palpable peripheral pulses. LABORATORY DATA: Labs done from the emergency room: WBC 7.2, hemoglobin 12.7, hematocrit 38.4, platelets 261. Sodium 136, potassium 3.9, chloride 100, bicarbonate 23, BUN 11, creatinine 0.7, glucose 94, calcium 9.4, total bilirubin 0.5, AST 18, ALT 25, alkaline phosphatase 62, total protein 6.9, albumin 4.3, lipase 55. UA, specific gravity 1.011, pH 7, blood 2+, rbc 34, sediment noted. Urine culture sent from ED, blood cultures not done. CT of the abdomen and pelvis shows 3 mm proximal left ureteral calculus with proximal hydroureter and fullness of the left renal pelvis, mildly thick wall under distended urinary bladder, small focus of air within the urinary bladder. Abdominal x-ray consistent with proximal left ureteral calculus. Renal ultrasound consistent with bilateral non-obstructing renal calculi, and mild left-sided hydronephrosis. ASSESSMENT AND PLAN: Young female with history of renal stones and Chiari malformation, status post surgery, came in with left flank pain, nausea, and vomiting. In the emergency department, the patient was found to be having left ureteral calculus with mild hydronephrosis left side, and the patient has been having intractable nausea and vomiting, and the patient is being admitted. The patient developed fever up to 102 this morning. The patient is being admitted for further management. 1. Left renal colic. 2. Fever with left flank pain, rule out sepsis, rule out pyelonephritis. 3. History of migraine headaches and Chiari malformation, now stable. PLAN: The patient is being admitted to the medical floor. We will give hydration and strain all the urine to see if the patient passes the stone. We will start clear liquids, give Zofran as needed. We will give pain medication with morphine. The patient claims that she needs morphine at shorter intervals, at 3-hour intervals. We will give morphine every 3 hours with Toradol for breakthrough pain. We will repeat blood cultures, urine cultures. Check CBC and CMP. We will start Rocephin 1 g IV empirically pending urine culture and blood culture results. Urology consult appreciated. We will add further recommendation as her clinical course progresses. The patient's boyfriend is at bedside, clarified all their questions and concerns. Rajiv Krishna MD
[2018-03-01] MEDS: Lactated Ringer's 1,000 ML IV SCH ×4 (02:34→21:13)
[2018-03-01] MEDS: Meropenem 1 GM in Sodium Chloride 0.9% 100 ML IVPB SCH ×4 (04:10→21:11)
--- NOTE | 2018-03-01 04:23 | PCM.SEPTIC ---
Sepsis Progress Note - Reassessment Type Date of Evaluation: 03/01/18 Time of Evaluation: 04:00 Reassessment Type: Non-invasive reassessment - Non Invasive Reassessment Were the most recent vital sign reviewed: Yes Vital Sign (Latest): Temp Pulse Resp BP Pulse Ox 99.1 F 110 H 20 89/59 L 97 03/01/18 00:00 03/01/18 00:00 03/01/18 00:00 03/01/18 00:00 03/01/18 00:00 Cardiovascular: Yes: Edema (Right Upper Ext. ), Tachycardia. No: Regular Rate , Rhythm, Chest Non Tender (Right Chest Wall Tenderness), JVD, Murmur, Bradycardia, Ectopy, Friction Rub, Irregularly Irregular Respiratory: Yes: Normal Breath Sounds. No: Accessory Muscle Use, Crackles, Rales, Rhonchi, Wheezing, Plerual Rub Capillary Refill: Delayed Pulses: Decreased Radial Skin: Dry, Pale
[2018-03-01] MEDS: HYDROmorphone 1 mg/ml ISec IVP PRN ×4 (05:08→21:18)
[2018-03-01 06:27] LABS: BASO % 0.1 % (0.0-2.0); EOS # 0.2 K/uL (0.0-0.7); HEMOGLOBIN 10.6 g/dL (11.0-16.0); LYMPH # 0.5 K/uL (1.0-4.3); LYMPH % 2.3 % (20.0-40.0); MEAN CELL VOLUME 93.4 fL (81.0-99.0); MEAN CORPUSCULAR HEMOGLOBIN 30.1 pg (27.0-31.0); MEAN CORPUSCULAR HGB CONC 32.3 g/dL (33.0-37.0); MEAN PLATELET VOLUME 8.7 fL (7.2-11.7); MONO # 0.4 K/uL (0.0-0.8); NEUT # 19.6 K/uL (1.8-7.0); NEUT % 94.6 % (50.0-75.0); PLATELET COUNT 101 K/uL (130-400); RBC 3.52 Mil/uL (3.80-5.20); WHITE BLOOD COUNT 20.7 K/uL (4.8-10.8)
[2018-03-01 06:30] LABS: SQUAMOUS EPITHIAL 1 /hpf (0-5); URINE BILIRUBIN NEGATIVE (NEGATIVE); URINE CLARITY Clear (Clear); URINE COLOR Yellow (YELLOW); URINE GLUCOSE (UA) 1+ mg/dL (Normal); URINE HYALINE CAST 0-2 /lpf (0-2); URINE LEUKOCYTE ESTERASE TRACE Leu/uL (Negative); URINE PROTEIN 2+ mg/dL (NEGATIVE); URINE UROBILINOGEN NORMAL mg/dL (0.2-1.0)
[2018-03-01 06:31] LABS: URINE BLOOD 1+ (NEGATIVE)
[2018-03-01 06:43] LABS: ALBUMIN 2.5 g/dL (3.5-5.0); CALCIUM 6.9 mg/dl (8.6-10.4)
--- NOTE | 2018-03-01 08:01 | RAD ---
Date of service: 03/01/2018 HISTORY: SOB COMPARISON: No prior. FINDINGS: LUNGS: Linear atelectasis or fibrosis is seen at the inferior left lung zone. No alveolitis bilaterally. Nipple shadow identified at the left lung base with this area clear in lung base sections from prior abdomen pelvis CT 02/27/2018. PLEURA: No significant pleural effusion identified, no pneumothorax apparent. CARDIOVASCULAR: Normal. OSSEOUS STRUCTURES: No significant abnormalities. VISUALIZED UPPER ABDOMEN: Normal. OTHER FINDINGS: None. IMPRESSION: Linear atelectasis or fibrosis seen at the inferior left lung zone. No acute infiltrate pleural effusion or pneumothorax bilaterally.
--- NOTE | 2018-03-01 08:07 | CP.PCM.PN ---
Subjective - Date & Time of Evaluation Date of Evaluation: 02/28/18 Time of Evaluation: 23:00 - Subjective Subjective: Patient seen last night when code sepsis was called. 27 F admitted with left proximal ureteric calculus on 02/27, developed fever on 02/28, the calculus moved from proximal to mid vs distal ureter. Patient become hypotensive, elevated lactate, when code sepsis called. Patient still awake and oriented, fluid boluses stared, abx changed to gentamycin 5mg/kg daily dose, meorpenium 1g q6h. Patient was also accepted for ICU. In the later course of the night patient became sob and hypoxic needing 100% NRB, and patient was transferred to ICU. In ICU O2 requirement titrated down to 6 lit via nc. Patient till this morning got about 5 liters of the fluid, urine output about 250ml overnight. Clear reason for hypoxia not known sepsis, or sepsis related cardiomyopathy, 3rd spacing. Patient currently being managed in ICU. Will need window of time when bp stable and could go for stent placement. If sepsis/shock prolongs will also need imaging with CT and echo to confirm cause of hypoxia, r/o any abscess, and if significant hydropresent may need urostomy tube. Objective - Vital Signs/Intake and Output Vital Signs (last 24 hours): Temp Pulse Resp BP Pulse Ox 99.4 F 98 H 25 H 80/50 L 89 L 03/01/18 04:00 03/01/18 07:10 03/01/18 07:10 03/01/18 06:52 03/01/18 07:10 Intake and Output: 03/01/18 03/01/18 06:59 18:59 Intake Total 4400 100 Output Total 250 Balance 4150 100 - Medications Medications: Current Medications Acetaminophen (Tylenol 325mg Tab) 650 mg PO Q6 PRN PRN Reason: temp 101 and above Last Admin: 02/28/18 17:20 Dose: 650 mg Heparin Sodium (Porcine) (Heparin) 5,000 units SC Q12 [facility] Hydromorphone HCl (Dilaudid) 1 mg IVP Q4H PRN PRN Reason: pain 5-10 Last Admin: 03/01/18 05:08 Dose: 1 mg Gentamicin Sulfate 350 mg/ (Sodium Chloride) 258.75 mls @ 250 mls/hr IVPB Q24H [facility] PRN Reason: Protocol Last Admin: 03/01/18 00:00 Dose: 250 mls/hr Meropenem 1 gm/ Sodium (Chloride) 100 mls @ 100 mls/hr IVPB Q6H [facility] PRN Reason: Protocol Last Admin: 03/01/18 04:10 Dose: 100 mls/hr Lactated Ringer's (Lactated Ringer's) 1,000 mls @ 150 mls/hr IV .Q6H40M [facility] Last Admin: 03/01/18 02:34 Dose: 150 mls/hr Ondansetron HCl (Zofran Inj) 4 mg IVP Q8 PRN PRN Reason: nausea and vomitting Last Admin: 03/01/18 01:39 Dose: 4 mg Sertraline HCl (Zoloft) 50 mg PO DAILY [facility] Last Admin: 03/01/18 05:13 Dose: 50 mg - Labs Labs: 03/01/18 06:17 03/01/18 06:17
[2018-03-01 08:37] LABS: BANDS 36 % (0-2); EOSINOPHIL 2 % (0-4); LYMPHOCYTE 3 % (20-40); MONOCYTE 2 % (0-10); NEUTROPHIL 57 % (50-75); PLATELET ESTIMATE DECREASED (NORMAL); TOTAL CELLS COUNTED 100
[2018-03-01 08:38] LABS: POIKILOCYTOSIS SLIGHT
[2018-03-01] MEDS ORDERED: Sodium Chloride 0.9% 1,000 ML IV ONE (09:20)
--- NOTE | 2018-03-01 09:59 | CP.PCM.PN ---
Subjective - Date & Time of Evaluation Date of Evaluation: 03/01/18 Time of Evaluation: 09:59 - Subjective Subjective: Progress note dictated #[id number] Objective - Vital Signs/Intake and Output Vital Signs (last 24 hours): Temp Pulse Resp BP Pulse Ox 99.4 F 126 H 26 H 80/63 L 98 03/01/18 08:00 03/01/18 09:30 03/01/18 09:30 03/01/18 09:14 03/01/18 09:30 Intake and Output: 03/01/18 03/01/18 06:59 18:59 Intake Total 4400 250 Output Total 250 75 Balance 4150 175 - Medications Medications: Current Medications Acetaminophen (Tylenol 325mg Tab) 650 mg PO Q6 PRN PRN Reason: temp 101 and above Last Admin: 02/28/18 17:20 Dose: 650 mg Heparin Sodium (Porcine) (Heparin) 5,000 units SC Q12 [facility] Hydromorphone HCl (Dilaudid) 1 mg IVP Q4H PRN PRN Reason: pain 5-10 Last Admin: 03/01/18 09:21 Dose: 1 mg Gentamicin Sulfate 350 mg/ (Sodium Chloride) 258.75 mls @ 250 mls/hr IVPB Q24H [facility] PRN Reason: Protocol Last Admin: 03/01/18 00:00 Dose: 250 mls/hr Meropenem 1 gm/ Sodium (Chloride) 100 mls @ 100 mls/hr IVPB Q6H [facility] PRN Reason: Protocol Last Admin: 03/01/18 09:34 Dose: 100 mls/hr Lactated Ringer's (Lactated Ringer's) 1,000 mls @ 150 mls/hr IV .Q6H40M [facility] Last Admin: 03/01/18 08:24 Dose: 150 mls/hr Ondansetron HCl (Zofran Inj) 4 mg IVP Q8 PRN PRN Reason: nausea and vomitting Last Admin: 03/01/18 01:39 Dose: 4 mg Sertraline HCl (Zoloft) 50 mg PO DAILY [facility] Last Admin: 03/01/18 05:13 Dose: 50 mg - Labs Labs: 03/01/18 06:17 03/01/18 06:17
--- NOTE | 2018-03-01 11:12 | CT ---
Date of service: 03/01/18 CT chest, abdomen, and pelvis without IV contrast Indication: Sepsis from ureteral calculus, hypoxia. Technique: Contiguous axial images of the chest, abdomen, and pelvis without oral or IV contrast. Coronal and Sagittal reformats generated and reviewed. This CT exam was performed using 1 or more of the following dose reduction techniques: Automated exposure control, adjustment of the MAA and/or kV according to patient size, and/or use of iterative reconstruction technique. Radiation dose: Total exam DLP = 1013.04 MGy-cm. Comparison: Chest x-ray performed 03/01/18, CT abdomen and pelvis without contrast performed 02/27/18 Findings: Visualized portions of the inferior thyroid gland appear unremarkable. The unenhanced mediastinal and hilar vascular structures appear grossly unremarkable. The heart appears within normal limits of size. Small pericardial effusion. Small to moderate bilateral pleural effusions and compressive consolidations. Additional patchy dependent infiltrates. Heterogeneous hepatic parenchyma. Hepatomegaly. Gallbladder distension and peripancreatic edema/wall thickening. Punctate nonobstructing right renal calculi. Mild left-sided hydronephrosis. Distal left ureteral calculus is not definitively seen. Pelvic calcifications, may represent phleboliths however distal ureteral calculus is not excluded. The noncontrast spleen, pancreas, and adrenal glands appear grossly unremarkable. Interval development of abdominal and pelvic ascites. The stomach is nondistended. Lack of oral contrast limits evaluation for bowel pathology. The bowel loops appear within normal limits of caliber without evidence of intestinal obstruction. There is no definite free air. Uterus is present. Abebe catheter within the urinary bladder containing air. Under distention of the urinary bladder limits evaluation. No acute osseous abnormality is detected. Impression: Small pericardial effusion. Small to moderate bilateral pleural effusions and compressive consolidations. Additional patchy dependent infiltrates. Heterogeneous hepatic parenchyma. Hepatomegaly. Gallbladder distension and peripancreatic edema/wall thickening. Punctate nonobstructing right renal calculi. Mild left-sided hydronephrosis. Distal left ureteral calculus is not definitively seen. Pelvic calcifications, may represent phleboliths however distal ureteral calculus is not excluded. Interval development of abdominal and pelvic ascites. Abebe catheter within the urinary bladder containing air. Under distention of the urinary bladder limits evaluation.
--- NOTE | 2018-03-01 11:39 | CP.PCM.PCO ---
Physician Communication Note - Physician Communication Note Physician Communication Note: Pt can be referred to outpt psych. RN contacted. Use prn ativan 0.5 q6h
[2018-03-01] MEDS ORDERED: HYDROmorphone 1 mg/ml ISec IVP PRN (11:51)
--- NOTE | 2018-03-01 12:33 | CP.CCUPN ---
<Baltazar Tovar - Last Filed: 03/01/18 15:47> CCU Subjective - Physician Review Subjective (Free Text): Critical care progress note: Pt seen and examined at bed side. Patient was short of breath, febrile and hypotensive overnight and was brought to the ICU for close monitoring. Pt c/o of L sided abdominal pain and R sided chest tightness. No nausea or vomiting. 12 Point ROS performed and neg other than stated above. CCU Objective - Vital Signs / Intake & Output Vital Signs (Last 4 hours): Vital Signs Temp Pulse Resp BP Pulse Ox 03/01/18 12:20 98 H 16 90 L 03/01/18 12:10 101 H 16 87 L 03/01/18 12:00 99.1 F 98 H 11 L 92 L 03/01/18 11:51 105 H 17 91/53 L 86 L 03/01/18 11:50 102 H 22 86 L 03/01/18 11:40 101 H 19 91 L 03/01/18 11:30 108 H 26 H 87 L 03/01/18 11:20 100 H 27 H 90 L 03/01/18 11:10 99 H 23 89 L 03/01/18 11:00 105 H 24 91 L 03/01/18 10:51 105 H 26 H 92/52 L 90 L 03/01/18 10:50 111 H 22 92 L 03/01/18 10:40 106 H 26 H 89 L 03/01/18 10:30 109 H 21 88 L 03/01/18 10:29 111 H 20 99/51 L 88 L 03/01/18 10:23 109 H 17 03/01/18 09:51 107 H 25 H 104/61 94 L 03/01/18 09:50 113 H 27 H 96 03/01/18 09:47 110 H 21 108/66 97 03/01/18 09:40 113 H 34 H 103/64 96 03/01/18 09:30 126 H 26 H 98 03/01/18 09:20 131 H 43 H 88 L 03/01/18 09:14 124 H 36 H 80/63 L 77 L 03/01/18 09:13 118 H 34 H 54/37 L 83 L 03/01/18 09:10 97 H 27 H 100 03/01/18 09:00 91 H 20 97 03/01/18 08:52 100 H 37 H 88/56 L 92 L 03/01/18 08:50 98 H 37 H 95 03/01/18 08:40 90 23 94 L 03/01/18 08:30 93 H 22 96 Intake and Output (Last 8hrs): Intake & Output 02/28/18 03/01/18 03/01/18 22:59 06:59 14:59 Intake Total 3800 1600 1650 Output Total 250 200 Balance 3800 1350 1450 Intake: Intake, IV Amount 3300 1600 1650 Left Hand 1100 Right Antecubital 3300 rt. ac #1 1500 550 rt.ac #2 100 Oral 500 0 Output: Urine 250 200 Urethral (Zimmer) 250 200 Other: Voiding Method Indwelling Catheter # Voids Urine, Voided 3 # Bowel Movements 0 0 - Physical Exam Head: Positive for: Atraumatic, Normocephalic Pupils: Positive for: PERRL Extroacular Muscles: Positive for: EOMI Mouth: Positive for: Moist Mucous Membranes Neck: Positive for: Normal Range of Motion. Negative for: JVD Respiratory/Chest: Positive for: Clear to Auscultation, Good Air Exchange. Negative for: Wheezes, Rales Cardiovascular: Positive for: Normal S1, S2, Tachycardic Abdomen: Positive for: Tenderness, Normal Bowel Sounds. Negative for: Distention, Peritoneal Signs Upper Extremity: Negative for: Cyanosis, Edema Lower Extremity: Negative for: Edema, CALF TENDERNESS Neurological: Positive for: CN II-XII Intact Skin: Positive for: Warm, Dry Psychiatric: Positive for: Alert, Oriented x 3 - Medications Active Medications: Active Medications Generic Name Dose Route Start Last Admin Trade Name Freq PRN Reason Stop Dose Admin Acetaminophen 650 mg 02/28/18 17:07 02/28/18 17:20 Tylenol 325mg Tab PO 650 mg Q6 PRN Administration temp 101 and above Heparin Sodium (Porcine) 5,000 units 03/01/18 10:00 03/01/18 11:56 Heparin SC Not Given Q12 BETHANY Hydromorphone HCl 0.5 mg 03/01/18 11:51 03/01/18 12:27 Dilaudid IVP 0.5 mg Q4H PRN Administration pain 5-10 Gentamicin Sulfate 350 mg/ 258.75 mls @ 250 mls/hr 02/28/18 22:30 03/01/18 00 :00 Sodium Chloride IVPB 250 mls/hr Q24H BETHANY Administration Protocol Meropenem 1 gm/ Sodium 100 mls @ 100 mls/hr 02/28/18 21:30 03/01/18 09:34 Chloride IVPB 100 mls/hr Q6H BETHANY Administration Protocol Lactated Ringer's 1,000 mls @ 100 mls/hr 03/01/18 11:51 03/01/18 11:57 Lactated Ringer's IV Not Given .Q10H BETHANY Ondansetron HCl 4 mg 02/28/18 17:22 03/01/18 01:39 Zofran Inj IVP 4 mg Q8 PRN Administration nausea and vomitting Sertraline HCl 50 mg 03/01/18 05:00 03/01/18 11:54 Zoloft PO Not Given DAILY BETHANY - Patient Studies Lab Studies: Microbiology Studies 02/28/18 10:50 Blood Culture - Preliminary Blood Gram Negative Hever Gram Stain - Final 02/28/18 11:05 Blood Culture - Preliminary Blood Gram Stain - Final Lab Studies 03/01/18 03/01/18 03/01/18 Range/Units 06:17 06:17 06:17 WBC 20.7 H (4.8-10.8) K/uL RBC 3.52 L (3.80-5.20) Mil/uL Hgb 10.6 L (11.0-16.0) g/dL Hct 32.9 L (34.0-47.0) % MCV 93.4 (81.0-99.0) fL MCH 30.1 (27.0-31.0) pg MCHC 32.3 L (33.0-37.0) g/dL RDW 14.0 (11.5-14.5) % Plt Count 101 L D (130-400) K/uL MPV 8.7 (7.2-11.7) fL Neut % (Auto) 94.6 H (50.0-75.0) % Lymph % (Auto) 2.3 L (20.0-40.0) % [place] % (Auto) 2.0 (0.0-10.0) % Eos % (Auto) 1.0 (0.0-4.0) % Baso % (Auto) 0.1 (0.0-2.0) % Neut # (Auto) 19.6 H (1.8-7.0) K/uL Lymph # (Auto) 0.5 L (1.0-4.3) K/uL [place] # (Auto) 0.4 (0.0-0.8) K/uL Eos # (Auto) 0.2 (0.0-0.7) K/uL Baso # (Auto) 0.0 (0.0-0.2) K/uL Neutrophils % (Manual) 57 (50-75) % Band Neutrophils % 36 H* (0-2) % Lymphocytes % (Manual) 3 L (20-40) % Monocytes % (Manual) 2 (0-10) % Eosinophils % (Manual) 2 (0-4) % Platelet Estimate Decreased L (NORMAL) RBC Morphology Poikilocytosis (manual Slight Puncture Site pCO2 (35-45) mm/Hg pO2 (80-100) mm/Hg HCO3 (21-28) mmol/L ABG pH (7.35-7.45) ABG Total CO2 (22-28) mmol/L ABG O2 Saturation (95-98) % ABG Base Excess (-2.0-3.0) mmol/L [place] Test ABG Potassium (3.6-5.2) mmol/L A-a O2 Difference mm/Hg Respiratory Index Glucose (65-105) mg/dl Lactate (0.7-2.1) mmol/L FiO2 % Sodium 136 (132-148) mmol/L Potassium 4.2 (3.6-5.2) mmol/L Chloride 107 (98-107) mmol/L Carbon Dioxide 16 L (22-30) mmol/L Anion Gap 18 (10-20) BUN 16 (7-17) mg/dL Creatinine 1.3 H (0.7-1.2) mg/dL Est GFR ( Amer) 59 Est GFR (Non-Af Amer) 49 Random Glucose 118 H (65-105) mg/dL Lactic Acid (0.7-2.1) mmol/L Calcium 6.9 L (8.6-10.4) mg/dl Phosphorus (2.5-4.5) mg/dL Magnesium (1.6-2.3) mg/dL Total Bilirubin 0.3 (0.2-1.3) mg/dL AST 26 (14-36) U/L ALT 26 (9-52) U/L Alkaline Phosphatase 54 (38-126) U/L Total Protein 5.0 L (6.3-8.3) g/dL Albumin 2.5 L (3.5-5.0) g/dL Globulin 2.5 (2.2-3.9) gm/dL Albumin/Globulin Ratio 1.0 (1.0-2.1) Procalcitonin (0.19-0.49) NG/ML Arterial Blood Potassium (3.6-5.2) mmol/L Urine Color Yellow (YELLOW) Urine Clarity Clear (Clear) Urine pH 5.0 (5.0-8.0) Ur Specific [place] 1.021 (1.003-1.030) Urine Protein 2+ H (NEGATIVE) mg/dL Urine Glucose (UA) 1+ (Normal) mg/dL Urine Ketones Trace (NEGATIVE) mg/dL Urine Blood 1+ H (NEGATIVE) Urine Nitrate Negative (NEGATIVE) Urine Bilirubin Negative (NEGATIVE) Urine Urobilinogen Normal (0.2-1.0) mg/dL Ur Leukocyte Esterase Trace (Negative) Oscar/uL Urine WBC (Auto) 19 H (0-5) /hpf Urine RBC (Auto) 10 H (0-3) /hpf Ur Squamous Epith Cells 1 (0-5) /hpf Hyaline Casts 0-2 (0-2) /lpf Urine Yeast (Budding) Occ H (NEGATIVE) /hpf 03/01/18 02/28/18 02/28/18 Range/Units 00:25 19:50 19:50 WBC (4.8-10.8) K/uL RBC (3.80-5.20) Mil/uL Hgb (11.0-16.0) g/dL Hct (34.0-47.0) % MCV (81.0-99.0) fL MCH (27.0-31.0) pg MCHC (33.0-37.0) g/dL RDW (11.5-14.5) % Plt Count (130-400) K/uL MPV (7.2-11.7) fL Neut % (Auto) (50.0-75.0) % Lymph % (Auto) (20.0-40.0) % [place] % (Auto) (0.0-10.0) % Eos % (Auto) (0.0-4.0) % Baso % (Auto) (0.0-2.0) % Neut # (Auto) (1.8-7.0) K/uL Lymph # (Auto) (1.0-4.3) K/uL [place] # (Auto) (0.0-0.8) K/uL Eos # (Auto) (0.0-0.7) K/uL Baso # (Auto) (0.0-0.2) K/uL Neutrophils % (Manual) (50-75) % Band Neutrophils % (0-2) % Lymphocytes % (Manual) (20-40) % Monocytes % (Manual) (0-10) % Eosinophils % (Manual) (0-4) % Platelet Estimate (NORMAL) RBC Morphology Poikilocytosis (manual Puncture Site Lb pCO2 28 L (35-45) mm/Hg pO2 101 H (80-100) mm/Hg HCO3 18.2 L (21-28) mmol/L ABG pH 7.35 (7.35-7.45) ABG Total CO2 16.4 L (22-28) mmol/L ABG O2 Saturation 99.8 H (95-98) % ABG Base Excess -8.6 L (-2.0-3.0) mmol/L Troy Test Na ABG Potassium 2.9 L (3.6-5.2) mmol/L A-a O2 Difference 577.0 mm/Hg Respiratory Index 5.7 Glucose 130 H (65-105) mg/dl Lactate 2.9 H (0.7-2.1) mmol/L FiO2 100.0 % Sodium 135.0 (132-148) mmol/L Potassium (3.6-5.2) mmol/L Chloride 108.0 H (98-107) mmol/L Carbon Dioxide (22-30) mmol/L Anion Gap (10-20) BUN (7-17) mg/dL Creatinine (0.7-1.2) mg/dL Est GFR ( Amer) Est GFR (Non-Af Amer) Random Glucose (65-105) mg/dL Lactic Acid 3.5 H (0.7-2.1) mmol/L Calcium (8.6-10.4) mg/dl Phosphorus (2.5-4.5) mg/dL Magnesium (1.6-2.3) mg/dL Total Bilirubin (0.2-1.3) mg/dL AST (14-36) U/L ALT (9-52) U/L Alkaline Phosphatase (38-126) U/L Total Protein (6.3-8.3) g/dL Albumin (3.5-5.0) g/dL Globulin (2.2-3.9) gm/dL Albumin/Globulin Ratio (1.0-2.1) Procalcitonin 7.15 H (0.19-0.49) NG/ML Arterial Blood Potassium 2.9 L (3.6-5.2) mmol/L Urine Color (YELLOW) Urine Clarity (Clear) Urine pH (5.0-8.0) Ur Specific [place] (1.003-1.030) Urine Protein (NEGATIVE) mg/dL Urine Glucose (UA) (Normal) mg/dL Urine Ketones (NEGATIVE) mg/dL Urine Blood (NEGATIVE) Urine Nitrate (NEGATIVE) Urine Bilirubin (NEGATIVE) Urine Urobilinogen (0.2-1.0) mg/dL Ur Leukocyte Esterase (Negative) Oscar/uL Urine WBC (Auto) (0-5) /hpf Urine RBC (Auto) (0-3) /hpf Ur Squamous Epith Cells (0-5) /hpf Hyaline Casts (0-2) /lpf Urine Yeast (Budding) (NEGATIVE) /hpf 02/28/18 02/28/18 Range/Units 13:48 11:05 WBC 16.4 H D (4.8-10.8) K/uL RBC 3.52 L (3.80-5.20) Mil/uL Hgb 10.8 L (11.0-16.0) g/dL Hct 32.2 L (34.0-47.0) % MCV 91.6 (81.0-99.0) fL MCH 30.6 (27.0-31.0) pg MCHC 33.4 (33.0-37.0) g/dL RDW 13.2 (11.5-14.5) % Plt Count 146 D (130-400) K/uL MPV 8.1 (7.2-11.7) fL Neut % (Auto) 93.2 H (50.0-75.0) % Lymph % (Auto) 4.8 L (20.0-40.0) % [place] % (Auto) 1.1 (0.0-10.0) % Eos % (Auto) 0.7 (0.0-4.0) % Baso % (Auto) 0.2 (0.0-2.0) % Neut # (Auto) 15.3 H (1.8-7.0) K/uL Lymph # (Auto) 0.8 L (1.0-4.3) K/uL [place] # (Auto) 0.2 (0.0-0.8) K/uL Eos # (Auto) 0.1 (0.0-0.7) K/uL Baso # (Auto) 0.0 (0.0-0.2) K/uL Neutrophils % (Manual) 52 (50-75) % Band Neutrophils % 39 H* (0-2) % Lymphocytes % (Manual) 7 L (20-40) % Monocytes % (Manual) 1 (0-10) % Eosinophils % (Manual) 1 (0-4) % Platelet Estimate Normal (NORMAL) RBC Morphology Normal Poikilocytosis (manual Puncture Site pCO2 (35-45) mm/Hg pO2 (80-100) mm/Hg HCO3 (21-28) mmol/L ABG pH (7.35-7.45) ABG Total CO2 (22-28) mmol/L ABG O2 Saturation (95-98) % ABG Base Excess (-2.0-3.0) mmol/L [place] Test ABG Potassium (3.6-5.2) mmol/L A-a O2 Difference mm/Hg Respiratory Index Glucose (65-105) mg/dl Lactate (0.7-2.1) mmol/L FiO2 % Sodium 133 (132-148) mmol/L Potassium 3.5 L (3.6-5.2) mmol/L Chloride 102 (98-107) mmol/L Carbon Dioxide 23 (22-30) mmol/L Anion Gap 11 (10-20) BUN 11 (7-17) mg/dL Creatinine 1.0 (0.7-1.2) mg/dL Est GFR ( Amer) > 60 Est GFR (Non-Af Amer) > 60 Random Glucose 126 H (65-105) mg/dL Lactic Acid (0.7-2.1) mmol/L Calcium 7.6 L (8.6-10.4) mg/dl Phosphorus 2.1 L (2.5-4.5) mg/dL Magnesium 1.3 L (1.6-2.3) mg/dL Total Bilirubin 0.3 (0.2-1.3) mg/dL AST 17 (14-36) U/L ALT 23 (9-52) U/L Alkaline Phosphatase 40 (38-126) U/L Total Protein 5.2 L (6.3-8.3) g/dL Albumin 2.8 L D (3.5-5.0) g/dL Globulin 2.4 (2.2-3.9) gm/dL Albumin/Globulin Ratio 1.2 (1.0-2.1) Procalcitonin (0.19-0.49) NG/ML Arterial Blood Potassium (3.6-5.2) mmol/L Urine Color (YELLOW) Urine Clarity (Clear) Urine pH (5.0-8.0) Ur Specific [place] (1.003-1.030) Urine Protein (NEGATIVE) mg/dL Urine Glucose (UA) (Normal) mg/dL Urine Ketones (NEGATIVE) mg/dL Urine Blood (NEGATIVE) Urine Nitrate (NEGATIVE) Urine Bilirubin (NEGATIVE) Urine Urobilinogen (0.2-1.0) mg/dL Ur Leukocyte Esterase (Negative) Oscar/uL Urine WBC (Auto) (0-5) /hpf Urine RBC (Auto) (0-3) /hpf Ur Squamous Epith Cells (0-5) /hpf Hyaline Casts (0-2) /lpf Urine Yeast (Budding) (NEGATIVE) /hpf Laboratory Results - last 24 hr 02/28/18 02/28/18 02/28/18 11:05 13:48 19:50 WBC 16.4 H D RBC 3.52 L Hgb 10.8 L Hct 32.2 L MCV 91.6 MCH 30.6 MCHC 33.4 RDW 13.2 Plt Count 146 D MPV 8.1 Neut % (Auto) 93.2 H Lymph % (Auto) 4.8 L [place] % (Auto) 1.1 Eos % (Auto) 0.7 Baso % (Auto) 0.2 Neut # (Auto) 15.3 H Lymph # (Auto) 0.8 L [place] # (Auto) 0.2 Eos # (Auto) 0.1 Baso # (Auto) 0.0 Neutrophils % (Manual) 52 Band Neutrophils % 39 H* Lymphocytes % (Manual) 7 L Monocytes % (Manual) 1 Eosinophils % (Manual) 1 Platelet Estimate Normal RBC Morphology Normal Poikilocytosis (manual Puncture Site pCO2 pO2 HCO3 ABG pH ABG Total CO2 ABG O2 Saturation ABG Base Excess [place] Test ABG Potassium A-a O2 Difference Respiratory Index Glucose Lactate FiO2 Sodium 133 Potassium 3.5 L Chloride 102 Carbon Dioxide 23 Anion Gap 11 BUN 11 Creatinine 1.0 Est GFR ( Amer) > 60 Est GFR (Non-Af Amer) > 60 Random Glucose 126 H Lactic Acid Calcium 7.6 L Phosphorus 2.1 L Magnesium 1.3 L Total Bilirubin 0.3 AST 17 ALT 23 Alkaline Phosphatase 40 Total Protein 5.2 L Albumin 2.8 L D Globulin 2.4 Albumin/Globulin Ratio 1.2 Procalcitonin 7.15 H Arterial Blood Potassium Urine Color Urine Clarity Urine pH Ur Specific [place] Urine Protein Urine Glucose (UA) Urine Ketones Urine Blood Urine Nitrate Urine Bilirubin Urine Urobilinogen Ur Leukocyte Esterase Urine WBC (Auto) Urine RBC (Auto) Ur Squamous Epith Cells Hyaline Casts Urine Yeast (Budding) 02/28/18 03/01/18 03/01/18 19:50 00:25 06:17 WBC 20.7 H RBC 3.52 L Hgb 10.6 L Hct 32.9 L MCV 93.4 MCH 30.1 MCHC 32.3 L RDW 14.0 Plt Count 101 L D MPV 8.7 Neut % (Auto) 94.6 H Lymph % (Auto) 2.3 L [place] % (Auto) 2.0 Eos % (Auto) 1.0 Baso % (Auto) 0.1 Neut # (Auto) 19.6 H Lymph # (Auto) 0.5 L [place] # (Auto) 0.4 Eos # (Auto) 0.2 Baso # (Auto) 0.0 Neutrophils % (Manual) 57 Band Neutrophils % 36 H* Lymphocytes % (Manual) 3 L Monocytes % (Manual) 2 Eosinophils % (Manual) 2 Platelet Estimate Decreased L RBC Morphology Poikilocytosis (manual Slight Puncture Site Lb pCO2 28 L pO2 101 H HCO3 18.2 L ABG pH 7.35 ABG Total CO2 16.4 L ABG O2 Saturation 99.8 H ABG Base Excess -8.6 L [place] Test Na ABG Potassium 2.9 L A-a O2 Difference 577.0 Respiratory Index 5.7 Glucose 130 H Lactate 2.9 H FiO2 100.0 Sodium 135.0 Potassium Chloride 108.0 H Carbon Dioxide Anion Gap BUN Creatinine Est GFR ( Amer) Est GFR (Non-Af Amer) Random Glucose Lactic Acid 3.5 H Calcium Phosphorus Magnesium Total Bilirubin AST ALT Alkaline Phosphatase Total Protein Albumin Globulin Albumin/Globulin Ratio Procalcitonin Arterial Blood Potassium 2.9 L Urine Color Urine Clarity Urine pH Ur Specific [place] Urine Protein Urine Glucose (UA) Urine Ketones Urine Blood Urine Nitrate Urine Bilirubin Urine Urobilinogen Ur Leukocyte Esterase Urine WBC (Auto) Urine RBC (Auto) Ur Squamous Epith Cells Hyaline Casts Urine Yeast (Budding) 03/01/18 03/01/18 06:17 06:17 WBC RBC Hgb Hct MCV MCH MCHC RDW Plt Count MPV Neut % (Auto) Lymph % (Auto) [place] % (Auto) Eos % (Auto) Baso % (Auto) Neut # (Auto) Lymph # (Auto) [place] # (Auto) Eos # (Auto) Baso # (Auto) Neutrophils % (Manual) Band Neutrophils % Lymphocytes % (Manual) Monocytes % (Manual) Eosinophils % (Manual) Platelet Estimate RBC Morphology Poikilocytosis (manual Puncture Site pCO2 pO2 HCO3 ABG pH ABG Total CO2 ABG O2 Saturation ABG Base Excess [place] Test ABG Potassium A-a O2 Difference Respiratory Index Glucose Lactate FiO2 Sodium 136 Potassium 4.2 Chloride 107 Carbon Dioxide 16 L Anion Gap 18 BUN 16 Creatinine 1.3 H Est GFR ( Amer) 59 Est GFR (Non-Af Amer) 49 Random Glucose 118 H Lactic Acid Calcium 6.9 L Phosphorus Magnesium Total Bilirubin 0.3 AST 26 ALT 26 Alkaline Phosphatase 54 Total Protein 5.0 L Albumin 2.5 L Globulin 2.5 Albumin/Globulin Ratio 1.0 Procalcitonin Arterial Blood Potassium Urine Color Yellow Urine Clarity Clear Urine pH 5.0 Ur Specific [place] 1.021 Urine Protein 2+ H Urine Glucose (UA) 1+ Urine Ketones Trace Urine Blood 1+ H Urine Nitrate Negative Urine Bilirubin Negative Urine Urobilinogen Normal Ur Leukocyte Esterase Trace Urine WBC (Auto) 19 H Urine RBC (Auto) 10 H Ur Squamous Epith Cells 1 Hyaline Casts 0-2 Urine Yeast (Budding) Occ H Review of Systems - Review of Systems All systems: reviewed and no additional remarkable complaints except Assessment/Plan - Assessment and Plan (Free Text) Assessment: 27 F with PMHx of nephrolithiasis, brain surgery for congenital cysts/ malformation presents with recurrent left kidney stone, 3mm, c/b gram negative sepsis. Plan for cystoscopy and possible stent placement today. Neuro: - Alert and oriented x 3 - pain control Pulm: - Currently on nasal cannula at 4 L - Maintain SPO2 > 92% CV: - Hypotensive this am to 80/50 - S/p 4 L fluids overnight and another 1L this am - Will maintain MAP > 65 - LR @ 100 - If pressure consistently low will require pressor support - F/u echo report GI: - GI ppx - CT abd today shows gallbladder distention; no LFT elevation or clinical signs of cholecystitis, neg murpheys sign Hem: - monitor H/H Renal: - CT abdomen today shows mild L sided hydro, distal L uretal calculus not definitely seen - Urology consulted for recs - Plan for cysto and possible stent placement today - monitor I and O - Replete electrolytes as needed Endo: - maintain euglycemic ID: - sepsis from left ureteral nephrolithiasis, possible obstruction now with gram negative bacteremia - continue Meropenem and Gentamicin - F/u septic work up DVT proph - heparin sq GI proph - not currently indicated zimmer for strict I/O's during acute illness Code status - full code Case and plan was reviewed and discussed in detail with Dr Allen. <Randy Allen - Last Filed: 03/01/18 20:47> CCU Objective - Vital Signs / Intake & Output Vital Signs (Last 4 hours): Vital Signs Pulse Resp BP Pulse Ox 03/01/18 19:15 102 H 28 H 107/71 93 L 03/01/18 19:10 100 H 19 93 L 03/01/18 19:00 98 H 25 H 92 L 03/01/18 18:50 103 H 30 H 95 03/01/18 18:40 96 H 12 96 03/01/18 18:30 102 H 22 94 L 03/01/18 18:20 100 H 25 H 92 L 03/01/18 18:15 90 8 L 96/59 L 99 03/01/18 18:10 94 H 27 H 98 03/01/18 18:00 92 H 29 H 95 03/01/18 17:50 93 H 20 96 03/01/18 17:40 96 H 16 92 L 03/01/18 17:30 91 H 23 92 L 03/01/18 17:20 90 29 H 88 L 03/01/18 17:14 90 12 96/60 L 90 L 03/01/18 17:10 97 H 13 89 L 03/01/18 17:00 94 H 25 H 96/60 L 93 L 03/01/18 16:59 96 H 24 98/54 L 91 L 03/01/18 16:50 89 25 H 91 L Intake and Output (Last 8hrs): Intake & Output 03/01/18 03/01/18 03/01/18 06:59 14:59 22:59 Intake Total 1600 2550 670 Output Total 250 750 250 Balance 1350 1800 420 Weight 155 lb Intake: IV 450 Intake, IV Amount 1600 2100 500 Left Hand 1100 100 rt. ac #1 1500 1000 400 rt.ac #2 100 Oral 0 170 Output: Urine 250 750 250 Urethral (Zimmer) 250 750 250 Other: Voiding Method Indwelling Catheter # Bowel Movements 0 0 - Medications Active Medications: Active Medications Generic Name Dose Route Start Last Admin Trade Name Freq PRN Reason Stop Dose Admin Acetaminophen 650 mg 02/28/18 17:07 02/28/18 17:20 Tylenol 325mg Tab PO 650 mg Q6 PRN Administration temp 101 and above Heparin Sodium (Porcine) 5,000 units 03/01/18 10:00 03/01/18 11:56 Heparin SC Not Given Q12 BETHANY Hydromorphone HCl 0.5 mg 03/01/18 13:15 03/01/18 17:44 Dilaudid IVP 0.5 mg Q3H PRN Administration pain 5-10 Gentamicin Sulfate 350 mg/ 258.75 mls @ 250 mls/hr 02/28/18 22:30 03/01/18 00 :00 Sodium Chloride IVPB 250 mls/hr Q24H BETHANY Administration Protocol Meropenem 1 gm/ Sodium 100 mls @ 100 mls/hr 02/28/18 21:30 03/01/18 15:55 Chloride IVPB 100 mls/hr Q6H BETHANY Administration Protocol Lactated Ringer's 1,000 mls @ 100 mls/hr 03/01/18 11:51 03/01/18 11:57 Lactated Ringer's IV Not Given .Q10H BETHANY Ondansetron HCl 4 mg 02/28/18 17:22 03/01/18 01:39 Zofran Inj IVP 4 mg Q8 PRN Administration nausea and vomitting Sertraline HCl 50 mg 03/01/18 05:00 03/01/18 11:54 Zoloft PO Not Given DAILY BETHANY - Patient Studies Lab Studies: Microbiology Studies 02/28/18 09:32 Urine Culture - Preliminary Urine,Clean Catch Gram Negative Hever 02/28/18 10:50 Blood Culture - Preliminary Blood Gram Negative Hever Gram Stain - Final 02/28/18 11:05 Blood Culture - Preliminary Blood Gram Negative Hever Gram Stain - Final Lab Studies 03/01/18 03/01/18 03/01/18 Range/Units 12:56 12:56 12:00 WBC (4.8-10.8) K/uL RBC (3.80-5.20) Mil/uL Hgb (11.0-16.0) g/dL Hct (34.0-47.0) % MCV (81.0-99.0) fL MCH (27.0-31.0) pg MCHC (33.0-37.0) g/dL RDW (11.5-14.5) % Plt Count (130-400) K/uL MPV (7.2-11.7) fL Neut % (Auto) (50.0-75.0) % Lymph % (Auto) (20.0-40.0) % [place] % (Auto) (0.0-10.0) % Eos % (Auto) (0.0-4.0) % Baso % (Auto) (0.0-2.0) % Neut # (Auto) (1.8-7.0) K/uL Lymph # (Auto) (1.0-4.3) K/uL [place] # (Auto) (0.0-0.8) K/uL Eos # (Auto) (0.0-0.7) K/uL Baso # (Auto) (0.0-0.2) K/uL Neutrophils % (Manual) (50-75) % Band Neutrophils % (0-2) % Lymphocytes % (Manual) (20-40) % Monocytes % (Manual) (0-10) % Eosinophils % (Manual) (0-4) % Platelet Estimate (NORMAL) Poikilocytosis (manual PT 18.9 H (9.7-12.2) SECONDS INR 1.7 APTT 34 (21-34) SECONDS Puncture Site pCO2 (35-45) mm/Hg pO2 (80-100) mm/Hg HCO3 (21-28) mmol/L ABG pH (7.35-7.45) ABG Total CO2 (22-28) mmol/L ABG O2 Saturation (95-98) % ABG Base Excess (-2.0-3.0) mmol/L [place] Test ABG Potassium (3.6-5.2) mmol/L A-a O2 Difference mm/Hg Respiratory Index Sodium (132-148) mmol/l Chloride (98-107) mmol/L Glucose (65-105) mg/dl Lactate (0.7-2.1) mmol/L FiO2 % Potassium (3.6-5.2) mmol/L Carbon Dioxide (22-30) mmol/L Anion Gap (10-20) BUN (7-17) mg/dL Creatinine (0.7-1.2) mg/dL Est GFR ( Amer) Est GFR (Non-Af Amer) Random Glucose (65-105) mg/dL Calcium (8.6-10.4) mg/dl Total Bilirubin (0.2-1.3) mg/dL AST (14-36) U/L ALT (9-52) U/L Alkaline Phosphatase (38-126) U/L Total Protein (6.3-8.3) g/dL Albumin (3.5-5.0) g/dL Globulin (2.2-3.9) gm/dL Albumin/Globulin Ratio (1.0-2.1) Amylase < 30 L (30-110) U/L Lipase < 10 L (23-300) U/L Procalcitonin (0.19-0.49) NG/ML Arterial Blood Potassium (3.6-5.2) mmol/L Urine Color (YELLOW) Urine Clarity (Clear) Urine pH (5.0-8.0) Ur Specific [place] (1.003-1.030) Urine Protein (NEGATIVE) mg/dL Urine Glucose (UA) (Normal) mg/dL Urine Ketones (NEGATIVE) mg/dL Urine Blood (NEGATIVE) Urine Nitrate (NEGATIVE) Urine Bilirubin (NEGATIVE) Urine Urobilinogen (0.2-1.0) mg/dL Ur Leukocyte Esterase (Negative) [place]/uL Urine WBC (Auto) (0-5) /hpf Urine RBC (Auto) (0-3) /hpf Ur Squamous Epith Cells (0-5) /hpf Hyaline Casts (0-2) /lpf Urine Yeast (Budding) (NEGATIVE) /hpf Urine HCG, Qual Negative (NEGATIVE) 03/01/18 03/01/18 03/01/18 Range/Units 06:17 06:17 06:17 WBC 20.7 H (4.8-10.8) K/uL RBC 3.52 L (3.80-5.20) Mil/uL Hgb 10.6 L (11.0-16.0) g/dL Hct 32.9 L (34.0-47.0) % MCV 93.4 (81.0-99.0) fL MCH 30.1 (27.0-31.0) pg MCHC 32.3 L (33.0-37.0) g/dL RDW 14.0 (11.5-14.5) % Plt Count 101 L D (130-400) K/uL MPV 8.7 (7.2-11.7) fL Neut % (Auto) 94.6 H (50.0-75.0) % Lymph % (Auto) 2.3 L (20.0-40.0) % [place] % (Auto) 2.0 (0.0-10.0) % Eos % (Auto) 1.0 (0.0-4.0) % Baso % (Auto) 0.1 (0.0-2.0) % Neut # (Auto) 19.6 H (1.8-7.0) K/uL Lymph # (Auto) 0.5 L (1.0-4.3) K/uL [place] # (Auto) 0.4 (0.0-0.8) K/uL Eos # (Auto) 0.2 (0.0-0.7) K/uL Baso # (Auto) 0.0 (0.0-0.2) K/uL Neutrophils % (Manual) 57 (50-75) % Band Neutrophils % 36 H* (0-2) % Lymphocytes % (Manual) 3 L (20-40) % Monocytes % (Manual) 2 (0-10) % Eosinophils % (Manual) 2 (0-4) % Platelet Estimate Decreased L (NORMAL) Poikilocytosis (manual Slight PT (9.7-12.2) SECONDS INR APTT (21-34) SECONDS Puncture Site pCO2 (35-45) mm/Hg pO2 (80-100) mm/Hg HCO3 (21-28) mmol/L ABG pH (7.35-7.45) ABG Total CO2 (22-28) mmol/L ABG O2 Saturation (95-98) % ABG Base Excess (-2.0-3.0) mmol/L [place] Test ABG Potassium (3.6-5.2) mmol/L A-a O2 Difference mm/Hg Respiratory Index Sodium 136 (132-148) mmol/l Chloride 107 (98-107) mmol/L Glucose (65-105) mg/dl Lactate (0.7-2.1) mmol/L FiO2 % Potassium 4.2 (3.6-5.2) mmol/L Carbon Dioxide 16 L (22-30) mmol/L Anion Gap 18 (10-20) BUN 16 (7-17) mg/dL Creatinine 1.3 H (0.7-1.2) mg/dL Est GFR ( Amer) 59 Est GFR (Non-Af Amer) 49 Random Glucose 118 H (65-105) mg/dL Calcium 6.9 L (8.6-10.4) mg/dl Total Bilirubin 0.3 (0.2-1.3) mg/dL AST 26 (14-36) U/L ALT 26 (9-52) U/L Alkaline Phosphatase 54 (38-126) U/L Total Protein 5.0 L (6.3-8.3) g/dL Albumin 2.5 L (3.5-5.0) g/dL Globulin 2.5 (2.2-3.9) gm/dL Albumin/Globulin Ratio 1.0 (1.0-2.1) Amylase (30-110) U/L Lipase (23-300) U/L Procalcitonin (0.19-0.49) NG/ML Arterial Blood Potassium (3.6-5.2) mmol/L Urine Color Yellow (YELLOW) Urine Clarity Clear (Clear) Urine pH 5.0 (5.0-8.0) Ur Specific [place] 1.021 (1.003-1.030) Urine Protein 2+ H (NEGATIVE) mg/dL Urine Glucose (UA) 1+ (Normal) mg/dL Urine Ketones Trace (NEGATIVE) mg/dL Urine Blood 1+ H (NEGATIVE) Urine Nitrate Negative (NEGATIVE) Urine Bilirubin Negative (NEGATIVE) Urine Urobilinogen Normal (0.2-1.0) mg/dL Ur Leukocyte Esterase Trace (Negative) Oscar/uL Urine WBC (Auto) 19 H (0-5) /hpf Urine RBC (Auto) 10 H (0-3) /hpf Ur Squamous Epith Cells 1 (0-5) /hpf Hyaline Casts 0-2 (0-2) /lpf Urine Yeast (Budding) Occ H (NEGATIVE) /hpf Urine HCG, Qual (NEGATIVE) 03/01/18 02/28/18 Range/Units 00:25 19:50 WBC (4.8-10.8) K/uL RBC (3.80-5.20) Mil/uL Hgb (11.0-16.0) g/dL Hct (34.0-47.0) % MCV (81.0-99.0) fL MCH (27.0-31.0) pg MCHC (33.0-37.0) g/dL RDW (11.5-14.5) % Plt Count (130-400) K/uL MPV (7.2-11.7) fL Neut % (Auto) (50.0-75.0) % Lymph % (Auto) (20.0-40.0) % [place] % (Auto) (0.0-10.0) % Eos % (Auto) (0.0-4.0) % Baso % (Auto) (0.0-2.0) % Neut # (Auto) (1.8-7.0) K/uL Lymph # (Auto) (1.0-4.3) K/uL [place] # (Auto) (0.0-0.8) K/uL Eos # (Auto) (0.0-0.7) K/uL Baso # (Auto) (0.0-0.2) K/uL Neutrophils % (Manual) (50-75) % Band Neutrophils % (0-2) % Lymphocytes % (Manual) (20-40) % Monocytes % (Manual) (0-10) % Eosinophils % (Manual) (0-4) % Platelet Estimate (NORMAL) Poikilocytosis (manual PT (9.7-12.2) SECONDS INR APTT (21-34) SECONDS Puncture Site Lb pCO2 28 L (35-45) mm/Hg pO2 101 H (80-100) mm/Hg HCO3 18.2 L (21-28) mmol/L ABG pH 7.35 (7.35-7.45) ABG Total CO2 16.4 L (22-28) mmol/L ABG O2 Saturation 99.8 H (95-98) % ABG Base Excess -8.6 L (-2.0-3.0) mmol/L [place] Test Na ABG Potassium 2.9 L (3.6-5.2) mmol/L A-a O2 Difference 577.0 mm/Hg Respiratory Index 5.7 Sodium 135.0 (132-148) mmol/l Chloride 108.0 H (98-107) mmol/L Glucose 130 H (65-105) mg/dl Lactate 2.9 H (0.7-2.1) mmol/L FiO2 100.0 % Potassium (3.6-5.2) mmol/L Carbon Dioxide (22-30) mmol/L Anion Gap (10-20) BUN (7-17) mg/dL Creatinine (0.7-1.2) mg/dL Est GFR ( Amer) Est GFR (Non-Af Amer) Random Glucose (65-105) mg/dL Calcium (8.6-10.4) mg/dl Total Bilirubin (0.2-1.3) mg/dL AST (14-36) U/L ALT (9-52) U/L Alkaline Phosphatase (38-126) U/L Total Protein (6.3-8.3) g/dL Albumin (3.5-5.0) g/dL Globulin (2.2-3.9) gm/dL Albumin/Globulin Ratio (1.0-2.1) Amylase (30-110) U/L Lipase (23-300) U/L Procalcitonin 7.15 H (0.19-0.49) NG/ML Arterial Blood Potassium 2.9 L (3.6-5.2) mmol/L Urine Color (YELLOW) Urine Clarity (Clear) Urine pH (5.0-8.0) Ur Specific [place] (1.003-1.030) Urine Protein (NEGATIVE) mg/dL Urine Glucose (UA) (Normal) mg/dL Urine Ketones (NEGATIVE) mg/dL Urine Blood (NEGATIVE) Urine Nitrate (NEGATIVE) Urine Bilirubin (NEGATIVE) Urine Urobilinogen (0.2-1.0) mg/dL Ur Leukocyte Esterase (Negative) Oscar/uL Urine WBC (Auto) (0-5) /hpf Urine RBC (Auto) (0-3) /hpf Ur Squamous Epith Cells (0-5) /hpf Hyaline Casts (0-2) /lpf Urine Yeast (Budding) (NEGATIVE) /hpf Urine HCG, Qual (NEGATIVE) Laboratory Results - last 24 hr 02/28/18 03/01/18 03/01/18 19:50 00:25 06:17 WBC 20.7 H RBC 3.52 L Hgb 10.6 L Hct 32.9 L MCV 93.4 MCH 30.1 MCHC 32.3 L RDW 14.0 Plt Count 101 L D MPV 8.7 Neut % (Auto) 94.6 H Lymph % (Auto) 2.3 L [place] % (Auto) 2.0 Eos % (Auto) 1.0 Baso % (Auto) 0.1 Neut # (Auto) 19.6 H Lymph # (Auto) 0.5 L [place] # (Auto) 0.4 Eos # (Auto) 0.2 Baso # (Auto) 0.0 Neutrophils % (Manual) 57 Band Neutrophils % 36 H* Lymphocytes % (Manual) 3 L Monocytes % (Manual) 2 Eosinophils % (Manual) 2 Platelet Estimate Decreased L Poikilocytosis (manual Slight PT INR APTT Puncture Site Lb pCO2 28 L pO2 101 H HCO3 18.2 L ABG pH 7.35 ABG Total CO2 16.4 L ABG O2 Saturation 99.8 H ABG Base Excess -8.6 L [place] Test Na ABG Potassium 2.9 L A-a O2 Difference 577.0 Respiratory Index 5.7 Sodium 135.0 Chloride 108.0 H Glucose 130 H Lactate 2.9 H FiO2 100.0 Potassium Carbon Dioxide Anion Gap BUN Creatinine Est GFR ( Amer) Est GFR (Non-Af Amer) Random Glucose Calcium Total Bilirubin AST ALT Alkaline Phosphatase Total Protein Albumin Globulin Albumin/Globulin Ratio Amylase Lipase Procalcitonin 7.15 H Arterial Blood Potassium 2.9 L Urine Color Urine Clarity Urine pH Ur Specific [place] Urine Protein Urine Glucose (UA) Urine Ketones Urine Blood Urine Nitrate Urine Bilirubin Urine Urobilinogen Ur Leukocyte Esterase Urine WBC (Auto) Urine RBC (Auto) Ur Squamous Epith Cells Hyaline Casts Urine Yeast (Budding) Urine HCG, Qual 03/01/18 03/01/18 03/01/18 06:17 06:17 12:00 WBC RBC Hgb Hct MCV MCH MCHC RDW Plt Count MPV Neut % (Auto) Lymph % (Auto) [place] % (Auto) Eos % (Auto) Baso % (Auto) Neut # (Auto) Lymph # (Auto) [place] # (Auto) Eos # (Auto) Baso # (Auto) Neutrophils % (Manual) Band Neutrophils % Lymphocytes % (Manual) Monocytes % (Manual) Eosinophils % (Manual) Platelet Estimate Poikilocytosis (manual PT INR APTT Puncture Site pCO2 pO2 HCO3 ABG pH ABG Total CO2 ABG O2 Saturation ABG Base Excess [place] Test ABG Potassium A-a O2 Difference Respiratory Index Sodium 136 Chloride 107 Glucose Lactate FiO2 Potassium 4.2 Carbon Dioxide 16 L Anion Gap 18 BUN 16 Creatinine 1.3 H Est GFR ( Amer) 59 Est GFR (Non-Af Amer) 49 Random Glucose 118 H Calcium 6.9 L Total Bilirubin 0.3 AST 26 ALT 26 Alkaline Phosphatase 54 Total Protein 5.0 L Albumin 2.5 L Globulin 2.5 Albumin/Globulin Ratio 1.0 Amylase < 30 L Lipase < 10 L Procalcitonin Arterial Blood Potassium Urine Color Yellow Urine Clarity Clear Urine pH 5.0 Ur Specific [place] 1.021 Urine Protein 2+ H Urine Glucose (UA) 1+ Urine Ketones Trace Urine Blood 1+ H Urine Nitrate Negative Urine Bilirubin Negative Urine Urobilinogen Normal Ur Leukocyte Esterase Trace Urine WBC (Auto) 19 H Urine RBC (Auto) 10 H Ur Squamous Epith Cells 1 Hyaline Casts 0-2 Urine Yeast (Budding) Occ H Urine HCG, Qual 03/01/18 03/01/18 12:56 12:56 WBC RBC Hgb Hct MCV MCH MCHC RDW Plt Count MPV Neut % (Auto) Lymph % (Auto) [place] % (Auto) Eos % (Auto) Baso % (Auto) Neut # (Auto) Lymph # (Auto) [place] # (Auto) Eos # (Auto) Baso # (Auto) Neutrophils % (Manual) Band Neutrophils % Lymphocytes % (Manual) Monocytes % (Manual) Eosinophils % (Manual) Platelet Estimate Poikilocytosis (manual PT 18.9 H INR 1.7 APTT 34 Puncture Site pCO2 pO2 HCO3 ABG pH ABG Total CO2 ABG O2 Saturation ABG Base Excess [place] Test ABG Potassium A-a O2 Difference Respiratory Index Sodium Chloride Glucose Lactate FiO2 Potassium Carbon Dioxide Anion Gap BUN Creatinine Est GFR ( Amer) Est GFR (Non-Af Amer) Random Glucose Calcium Total Bilirubin AST ALT Alkaline Phosphatase Total Protein Albumin Globulin Albumin/Globulin Ratio Amylase Lipase Procalcitonin Arterial Blood Potassium Urine Color Urine Clarity Urine pH Ur Specific [place] Urine Protein Urine Glucose (UA) Urine Ketones Urine Blood Urine Nitrate Urine Bilirubin Urine Urobilinogen Ur Leukocyte Esterase Urine WBC (Auto) Urine RBC (Auto) Ur Squamous Epith Cells Hyaline Casts Urine Yeast (Budding) Urine HCG, Qual Negative EKG/Cardiology Studies: Cardiology / EKG Studies 03/01/18 12:43 ELECTROCARDIOGRAM Stat Comment: Mode Of Transportation: Reason For Exam: pre op Critical Care Progress Note - Nutrition Nutrition: Nutrition Category Date Time Status Liquid Diet [DIET] Diets 03/01/18 Breakfast Active Attending/Attestation - Attestation I have personally seen and examined this patient.: Yes I have fully participated in the care of the patient.: Yes I have reviewed all pertinent clinical information: Yes Notes (Text): 03/01/18 20:46 The patient was Seen/interviewed and examined by me at the bedside during ICU round, Medical records reviewed and Management issues were discussed and formulated with the house staff. Events reviewed I have reviewed all the relevant clinical, laboratory, hemodynamic, radiographic data and medications Pain issues, skin care, head of the bed elevation, glycemic control were addressed. I concur with resident's assessment and plan of care as transcribed in Dr. Tovar note.
[2018-03-01 12:49] LABS: AMYLASE < 30 U/L (30-110)
[2018-03-01 12:50] LABS: LIPASE < 10 U/L (23-300)
[2018-03-01 13:25] LABS: INR 1.7; PROTHROMBIN TIME 18.9 SECONDS (9.7-12.2)
[2018-03-01] MEDS ORDERED: Midazolam 2 MG/2 ML VIAL ONE (14:54)
[2018-03-01] MEDS ORDERED: Propofol 10 mg/ml Inj (20 ML) ONE (14:54)
[2018-03-01] MEDS ORDERED: Phenylephrine 10 mg/ml Inj ONE (14:56)
[2018-03-01] MEDS ORDERED: Iohexol 240 (50 ml) ONE (15:08)
[2018-03-01] MEDS ORDERED: Lidocaine 2% Jelly (Uro-Jet) ONE (15:08)
--- NOTE | 2018-03-01 15:12 | CP.PCM.PN ---
Subjective - Date & Time of Evaluation Date of Evaluation: 03/01/18 Time of Evaluation: 15:07 - Subjective Subjective: Discussed with Dr del rosario and resident,pt continues to have pain and is septic although KUB and repeat ct do not visualize stone hydro is increasing and pain is increased . pt is septic will place stent left side to assure drainage and bypass any non visualized stone. consent obtained from pt and her mom. Jocelyn Objective - Vital Signs/Intake and Output Vital Signs (last 24 hours): Temp Pulse Resp BP Pulse Ox 99.1 F 97 H 20 97/51 L 89 L 03/01/18 12:00 03/01/18 13:00 03/01/18 13:00 03/01/18 12:51 03/01/18 13:00 Intake and Output: 03/01/18 03/01/18 06:59 18:59 Intake Total 4400 1650 Output Total 250 200 Balance 4150 1450 - Medications Medications: Current Medications Acetaminophen (Tylenol 325mg Tab) 650 mg PO Q6 PRN PRN Reason: temp 101 and above Last Admin: 02/28/18 17:20 Dose: 650 mg Heparin Sodium (Porcine) (Heparin) 5,000 units SC Q12 [facility] Last Admin: 03/01/18 11:56 Dose: Not Given Hydromorphone HCl (Dilaudid) 0.5 mg IVP Q3H PRN PRN Reason: pain 5-10 Gentamicin Sulfate 350 mg/ (Sodium Chloride) 258.75 mls @ 250 mls/hr IVPB Q24H [facility] PRN Reason: Protocol Last Admin: 03/01/18 00:00 Dose: 250 mls/hr Meropenem 1 gm/ Sodium (Chloride) 100 mls @ 100 mls/hr IVPB Q6H [facility] PRN Reason: Protocol Last Admin: 03/01/18 09:34 Dose: 100 mls/hr Lactated Ringer's (Lactated Ringer's) 1,000 mls @ 100 mls/hr IV .Q10H [facility] Last Admin: 03/01/18 11:57 Dose: Not Given Ondansetron HCl (Zofran Inj) 4 mg IVP Q8 PRN PRN Reason: nausea and vomitting Last Admin: 03/01/18 01:39 Dose: 4 mg Sertraline HCl (Zoloft) 50 mg PO DAILY [facility] Last Admin: 03/01/18 11:54 Dose: Not Given - Labs Labs: 03/01/18 06:17 03/01/18 06:17 PT 18.9 SECONDS (9.7-12.2) H 03/01/18 12:56 INR 1.7 03/01/18 12:56 APTT 34 SECONDS (21-34) 03/01/18 12:56
--- NOTE | 2018-03-01 16:39 | CARD ---
APPROVED REPORT Date of service: 03/01/2018 EXAM: Two-dimensional and M-mode echocardiogram with Doppler and color Doppler. Other Information Quality : GoodRhythm : INDICATION Infection:Rule out subacute bacterial endocarditis Cardiomyopathy 2D DIMENSIONS IVSd0.7 (0.7-1.1cm)LVDd5.4 (3.9-5.9cm) PWd0.6 (0.7-1.1cm)LVDs3.8 (2.5-4.0cm) FS (%) 30.9 %LVEF (%)58.0 (>50%) M-Mode DIMENSIONS Left Atrium (MM)3.92 (2.5-4.0cm)IVSd0.89 (0.7-1.1cm) Aortic Root3.14 (2.2-3.7cm)LVDd5.31 (4.0-5.6cm) Aortic Cusp Exc.2.70 (1.5-2.0cm)PWd0.75 (0.7-1.1cm) FS (%) 30 %LVDs3.70 (2.0-3.8cm) LVEF (%)57 (>50%) Mitral Valve MV E Jhvyweff153.5cm/sMV A Rqjtqiyz81.7cm/sE/A ratio1.8 TDI E/Lateral E'0.0E/Medial E'0.0 Tricuspid Valve TR Peak [id number]/sTR Peak [id number] LEFT VENTRICLE The left ventricle is normal size. There is normal left ventricular wall thickness. The left ventricular function is normal. The left ventricular ejection fraction is within the normal range. There is normal LV segmental wall motion. The left ventricular diastolic function is normal. RIGHT VENTRICLE The right ventricle is normal size. There is normal right ventricular wall thickness. The right ventricular systolic function is normal. ATRIA The left atrium size is normal. The right atrium size is normal. AORTIC VALVE The aortic valve is normal in structure. No aortic regurgitation is present. There is no aortic valvular stenosis. MITRAL VALVE The mitral valve is mildly thickened. There is no mitral valve stenosis. There is no mitral valve regurgitation noted. TRICUSPID VALVE The tricuspid valve is normal in structure. There is trace tricuspid regurgitation. PULMONIC VALVE The pulmonary valve is normal in structure. There is no pulmonic valvular regurgitation. GREAT VESSELS The aortic root is normal in size. The IVC is dilated. PERICARDIAL EFFUSION There is a trace loculated posterior pericardial effusion. <Conclusion> The left ventricle is normal size. There is normal left ventricular wall thickness. The left ventricular function is normal. The left ventricular ejection fraction is within the normal range. There is normal LV segmental wall motion. The left ventricular diastolic function is normal. No vegitation seen
--- NOTE | 2018-03-01 16:39 | RAD ---
Date of service: 03/01/2018 PROCEDURE: Intraoperative Fluoroscopy. HISTORY: LEFT HYDRONEPHROSIS FINDINGS: Fluoroscopic assistance was provided for left nephro ureteral stent insertion. Please refer to the operative report from [facility].
--- NOTE | 2018-03-01 18:36 | CP.PCM.PN ---
Subjective - Date & Time of Evaluation Date of Evaluation: 03/01/18 Time of Evaluation: 07:00 - Subjective Subjective: seen in ICU s/p cysto and stent placement left side Objective - Vital Signs/Intake and Output Vital Signs (last 24 hours): Temp Pulse Resp BP Pulse Ox 97.9 F 94 H 27 H 96/60 L 98 03/01/18 15:45 03/01/18 18:10 03/01/18 18:10 03/01/18 17:14 03/01/18 18:10 Intake and Output: 03/01/18 03/01/18 06:59 18:59 Intake Total 4400 3000 Output Total 250 1000 Balance 4150 2000 - Medications Medications: Current Medications Acetaminophen (Tylenol 325mg Tab) 650 mg PO Q6 PRN PRN Reason: temp 101 and above Last Admin: 02/28/18 17:20 Dose: 650 mg Heparin Sodium (Porcine) (Heparin) 5,000 units SC Q12 [facility] Last Admin: 03/01/18 11:56 Dose: Not Given Hydromorphone HCl (Dilaudid) 0.5 mg IVP Q3H PRN PRN Reason: pain 5-10 Last Admin: 03/01/18 17:44 Dose: 0.5 mg Gentamicin Sulfate 350 mg/ (Sodium Chloride) 258.75 mls @ 250 mls/hr IVPB Q24H [facility] PRN Reason: Protocol Last Admin: 03/01/18 00:00 Dose: 250 mls/hr Meropenem 1 gm/ Sodium (Chloride) 100 mls @ 100 mls/hr IVPB Q6H [facility] PRN Reason: Protocol Last Admin: 03/01/18 15:55 Dose: 100 mls/hr Lactated Ringer's (Lactated Ringer's) 1,000 mls @ 100 mls/hr IV .Q10H [facility] Last Admin: 03/01/18 11:57 Dose: Not Given Ondansetron HCl (Zofran Inj) 4 mg IVP Q8 PRN PRN Reason: nausea and vomitting Last Admin: 03/01/18 01:39 Dose: 4 mg Sertraline HCl (Zoloft) 50 mg PO DAILY [facility] Last Admin: 03/01/18 11:54 Dose: Not Given - Labs Labs: 03/01/18 06:17 03/01/18 06:17 PT 18.9 SECONDS (9.7-12.2) H 03/01/18 12:56 INR 1.7 03/01/18 12:56 APTT 34 SECONDS (21-34) 03/01/18 12:56 - Constitutional Appears: Non-toxic, Chronically Ill - Head Exam Head Exam: NORMOCEPHALIC - Eye Exam Eye Exam: PERRL - ENT Exam ENT Exam: Mucous Membranes Dry - Neck Exam Neck Exam: absent: Lymphadenopathy - Respiratory Exam Respiratory Exam: Decreased Breath Sounds, Clear to Ausculation Bilateral - Cardiovascular Exam Cardiovascular Exam: REGULAR RHYTHM, +S1, +S2 - GI/Abdominal Exam GI & Abdominal Exam: Distended, Soft. absent: Tenderness - Rectal Exam Rectal Exam: Deferred - Exam Exam: NORMAL INSPECTION - Extremities Exam Extremities Exam: absent: Calf Tenderness, Pedal Edema, Tenderness - Back Exam Back Exam: absent: CVA tenderness (L), CVA tenderness (R) - Neurological Exam Neurological Exam: Alert, Awake, CN II-XII Intact, Oriented x3 - Psychiatric Exam Psychiatric exam: Normal Mood - Skin Skin Exam: Dry Assessment and Plan (1) Nephrolithiasis Status: Acute (2) Gram negative sepsis Status: Acute (3) UTI (urinary tract infection) Status: Acute - Assessment and Plan (Free Text) Assessment: continue IV antibiotics repeat blood c/s in am await sensitivities
--- NOTE | 2018-03-01 19:15 | CP.PCM.CON ---
History of Present Illness - History of Present Illness History of Present Illness: pt is seen and examined, full consult is dictated #[id number] Past Patient History - Past Medical History & Family History Past Medical History?: Yes - Past Social History Smoking Status: Never Smoked - CARDIAC Hx Cardiac Disorders: No - PULMONARY Hx Respiratory Disorders: No - NEUROLOGICAL Other/Comment: Brain malformation surgery x2 yrs ago - HEENT Hx HEENT Problems: No - RENAL Hx Chronic Kidney Disease: No - ENDOCRINE/METABOLIC Hx Endocrine Disorders: No - HEMATOLOGICAL/ONCOLOGICAL Hx Blood Disorders: No - INTEGUMENTARY Hx Dermatological Problems: No - MUSCULOSKELETAL/RHEUMATOLOGICAL Hx Falls: No - GASTROINTESTINAL Hx Gastrointestinal Disorders: No - GENITOURINARY/GYNECOLOGICAL Hx Genitourinary Disorders: No - PSYCHIATRIC Hx Substance Use: No - SURGICAL HISTORY Other/Comment: Right shoulder surgery 2007, wishdom tooth extraction 2006 - ANESTHESIA Hx Anesthesia: No Meds Allergies/Adverse Reactions: Allergies Allergy/AdvReac Type Severity Reaction Status Date / Time No Known Allergies Allergy Unverified 02/27/18 16:47 - Medications Medications: Current Medications Acetaminophen (Tylenol 325mg Tab) 650 mg PO Q6 PRN PRN Reason: temp 101 and above Last Admin: 02/28/18 17:20 Dose: 650 mg Heparin Sodium (Porcine) (Heparin) 5,000 units SC Q12 [facility] Last Admin: 03/01/18 11:56 Dose: Not Given Hydromorphone HCl (Dilaudid) 0.5 mg IVP Q3H PRN PRN Reason: pain 5-10 Last Admin: 03/01/18 17:44 Dose: 0.5 mg Gentamicin Sulfate 350 mg/ (Sodium Chloride) 258.75 mls @ 250 mls/hr IVPB Q24H [facility] PRN Reason: Protocol Last Admin: 03/01/18 00:00 Dose: 250 mls/hr Meropenem 1 gm/ Sodium (Chloride) 100 mls @ 100 mls/hr IVPB Q6H [facility] PRN Reason: Protocol Last Admin: 03/01/18 15:55 Dose: 100 mls/hr Lactated Ringer's (Lactated Ringer's) 1,000 mls @ 100 mls/hr IV .Q10H [facility] Last Admin: 03/01/18 11:57 Dose: Not Given Ondansetron HCl (Zofran Inj) 4 mg IVP Q8 PRN PRN Reason: nausea and vomitting Last Admin: 03/01/18 01:39 Dose: 4 mg Sertraline HCl (Zoloft) 50 mg PO DAILY [facility] Last Admin: 03/01/18 11:54 Dose: Not Given Results - Vital Signs Recent Vital Signs: Last Vital Signs Temp 97.9 F 03/01/18 15:45 Pulse 94 H 03/01/18 18:10 Resp 27 H 03/01/18 18:10 BP 96/60 L 03/01/18 17:14 Pulse Ox 98 03/01/18 18:10 - Labs Result Diagrams: 03/01/18 06:17 03/01/18 06:17 Labs: Laboratory Results - last 24 hr 02/28/18 02/28/18 03/01/18 19:50 19:50 00:25 WBC RBC Hgb Hct MCV MCH MCHC RDW Plt Count MPV Neut % (Auto) Lymph % (Auto) [place] % (Auto) Eos % (Auto) Baso % (Auto) Neut # (Auto) Lymph # (Auto) [place] # (Auto) Eos # (Auto) Baso # (Auto) Neutrophils % (Manual) Band Neutrophils % Lymphocytes % (Manual) Monocytes % (Manual) Eosinophils % (Manual) Platelet Estimate Poikilocytosis (manual PT INR APTT Puncture Site Lb pCO2 28 L pO2 101 H HCO3 18.2 L ABG pH 7.35 ABG Total CO2 16.4 L ABG O2 Saturation 99.8 H ABG Base Excess -8.6 L [place] Test Na ABG Potassium 2.9 L A-a O2 Difference 577.0 Respiratory Index 5.7 Sodium 135.0 Chloride 108.0 H Glucose 130 H Lactate 2.9 H FiO2 100.0 Potassium Carbon Dioxide Anion Gap BUN Creatinine Est GFR ( Amer) Est GFR (Non-Af Amer) Random Glucose Lactic Acid 3.5 H Calcium Total Bilirubin AST ALT Alkaline Phosphatase Total Protein Albumin Globulin Albumin/Globulin Ratio Amylase Lipase Procalcitonin 7.15 H Arterial Blood Potassium 2.9 L Urine Color Urine Clarity Urine pH Ur Specific [place] Urine Protein Urine Glucose (UA) Urine Ketones Urine Blood Urine Nitrate Urine Bilirubin Urine Urobilinogen Ur Leukocyte Esterase Urine WBC (Auto) Urine RBC (Auto) Ur Squamous Epith Cells Hyaline Casts Urine Yeast (Budding) Urine HCG, Qual 03/01/18 03/01/18 03/01/18 06:17 06:17 06:17 WBC 20.7 H RBC 3.52 L Hgb 10.6 L Hct 32.9 L MCV 93.4 MCH 30.1 MCHC 32.3 L RDW 14.0 Plt Count 101 L D MPV 8.7 Neut % (Auto) 94.6 H Lymph % (Auto) 2.3 L [place] % (Auto) 2.0 Eos % (Auto) 1.0 Baso % (Auto) 0.1 Neut # (Auto) 19.6 H Lymph # (Auto) 0.5 L [place] # (Auto) 0.4 Eos # (Auto) 0.2 Baso # (Auto) 0.0 Neutrophils % (Manual) 57 Band Neutrophils % 36 H* Lymphocytes % (Manual) 3 L Monocytes % (Manual) 2 Eosinophils % (Manual) 2 Platelet Estimate Decreased L Poikilocytosis (manual Slight PT INR APTT Puncture Site pCO2 pO2 HCO3 ABG pH ABG Total CO2 ABG O2 Saturation ABG Base Excess [place] Test ABG Potassium A-a O2 Difference Respiratory Index Sodium 136 Chloride 107 Glucose Lactate FiO2 Potassium 4.2 Carbon Dioxide 16 L Anion Gap 18 BUN 16 Creatinine 1.3 H Est GFR ( Amer) 59 Est GFR (Non-Af Amer) 49 Random Glucose 118 H Lactic Acid Calcium 6.9 L Total Bilirubin 0.3 AST 26 ALT 26 Alkaline Phosphatase 54 Total Protein 5.0 L Albumin 2.5 L Globulin 2.5 Albumin/Globulin Ratio 1.0 Amylase Lipase Procalcitonin Arterial Blood Potassium Urine Color Yellow Urine Clarity Clear Urine pH 5.0 Ur Specific [place] 1.021 Urine Protein 2+ H Urine Glucose (UA) 1+ Urine Ketones Trace Urine Blood 1+ H Urine Nitrate Negative Urine Bilirubin Negative Urine Urobilinogen Normal Ur Leukocyte Esterase Trace Urine WBC (Auto) 19 H Urine RBC (Auto) 10 H Ur Squamous Epith Cells 1 Hyaline Casts 0-2 Urine Yeast (Budding) Occ H Urine HCG, Qual 03/01/18 03/01/18 03/01/18 12:00 12:56 12:56 WBC RBC Hgb Hct MCV MCH MCHC RDW Plt Count MPV Neut % (Auto) Lymph % (Auto) [place] % (Auto) Eos % (Auto) Baso % (Auto) Neut # (Auto) Lymph # (Auto) [place] # (Auto) Eos # (Auto) Baso # (Auto) Neutrophils % (Manual) Band Neutrophils % Lymphocytes % (Manual) Monocytes % (Manual) Eosinophils % (Manual) Platelet Estimate Poikilocytosis (manual PT 18.9 H INR 1.7 APTT 34 Puncture Site pCO2 pO2 HCO3 ABG pH ABG Total CO2 ABG O2 Saturation ABG Base Excess [place] Test ABG Potassium A-a O2 Difference Respiratory Index Sodium Chloride Glucose Lactate FiO2 Potassium Carbon Dioxide Anion Gap BUN Creatinine Est GFR ( Amer) Est GFR (Non-Af Amer) Random Glucose Lactic Acid Calcium Total Bilirubin AST ALT Alkaline Phosphatase Total Protein Albumin Globulin Albumin/Globulin Ratio Amylase < 30 L Lipase < 10 L Procalcitonin Arterial Blood Potassium Urine Color Urine Clarity Urine pH Ur Specific [place] Urine Protein Urine Glucose (UA) Urine Ketones Urine Blood Urine Nitrate Urine Bilirubin Urine Urobilinogen Ur Leukocyte Esterase Urine WBC (Auto) Urine RBC (Auto) Ur Squamous Epith Cells Hyaline Casts Urine Yeast (Budding) Urine HCG, Qual Negative
[2018-03-01] MEDS: GENTAMICIN IVPB SCH ×2 (22:29)
[2018-03-01] MEDS: SODIUM CHLORIDE 0.9% IVPB SCH ×2 (22:29)
--- NOTE | 2018-03-02 02:01 | PN ---
DATE: 03/01/2018 SUBJECTIVE: The patient was seen and examined this morning at bedside. Events from yesterday noted. The patient became hypotensive overnight with fever and elevated WBC count. Code sepsis was called. The patient remained hypotensive. The patient was transferred to ICU. Received multiple fluid boluses. Despite multiple fluid boluses, the patient remained hypotensive with persistently complaining of left-sided pain. Received multiple doses of pain medication. She was given meropenem and gentamicin. This morning when I examined, the patient is slightly better. She claims that her pain is better. She has been feeling nauseous. Denied any headache. Denied chest pain, but complaining of shortness of breath and has been taking only shallow respirations. Denies any leg pains or leg cramps. Denies any other neurologic symptoms but overnight during early hours, the patient had panic attack as per nurse and felt better after she got Zoloft. PHYSICAL EXAMINATION: GENERAL: A young female, lying in bed, in no acute distress. VITAL SIGNS: Blood pressure 96/59, pulse 94, respirations 20, T-max 102.4. Intake was 5400, output was 250 mL. HEENT: Pupils are equal, round, and reacting to light and accommodation. Extraocular muscles intact. No icterus. No pallor. No oral thrush. No pharyngeal congestion. NECK: Supple. No JVD. LUNGS: Bilateral vesicular breath sounds. No wheezing. No rhonchi. CARDIOVASCULAR SYSTEM: S1 and S2 are present, regular. ABDOMEN: Bowel sounds present. Soft. Tenderness in the left lower quadrant and left renal angle. No rigidity. No rebound tenderness noted. CENTRAL NERVOUS SYSTEM: Alert, awake, oriented x3. No focal deficits noted. EXTREMITIES: No edema. Palpable peripheral pulses. MEDICATIONS: Tylenol 650 mg p.o. every 6 hours p.r.n., gentamicin 350 mg IV daily, heparin 5000 units subcutaneous every 12 hours, Dilaudid 0.5 mg IV push every 3 hours p.r.n., Ringer's lactate 100 mL per hour, meropenem 1 g IV every 6 hours, Zofran 4 mg IV push every 8 hours, and Zoloft 50 mg daily. LABORATORY DATA: Labs from this morning: WBC 20.7, hemoglobin 10.6, hematocrit 32.9, platelets 101, and bands 36. PT 18.9, INR 1.7, PTT 34. Sodium 136, potassium 4.2, chloride 107, bicarb 16, BUN 16, creatinine 1.3, glucose 118. Lactic acid 3.5, procalcitonin 7.15, calcium 6.9. Total bilirubin 0.3, AST 26, ALT 26, alkaline phosphatase 54, total protein 5, albumin 2.5. Amylase less than 30, lipase less than 10. UA: Specific gravity 1.021, pH of 5, protein 2+, blood 1+, wbc's 19, rbc's 10. Beta hCG negative. Urine culture positive for gram-negative rods. Blood culture is positive for gram-negative rods. ASSESSMENT AND PLAN: Young female with prior history of nephrolithiasis, Chiari malformation, underwent surgery five years ago, depression. Admitted for left ureteric stone with renal colic and gram-negative sepsis; hypotension, possibly secondary to sepsis; electrolyte imbalance; increasing creatinine from 0.7 to 1.3 despite fluid resuscitation, probably secondary to hypotension and sepsis. CT of the chest, abdomen and pelvis consistent with bilateral pleural effusion; minimal peripheral effusion and ascites and distended gallbladder, probably secondary to third spacing; status post cystoscopy and left ureteral stent placement. The patient may have passed the left renal stone as it is not visualized on the CT scan or KUB. The patient's blood pressure is improving slowly. We will continue with Ringer's lactate 100 mL/hour. We will monitor her blood pressure closely. We will consider inotropic agents if persistently hypotensive. We will continue with meropenem and gentamicin. Await identification and sensitivities from blood cultures. Repeat blood cultures in the morning. Continue with incentive spirometry. We will drain all the urine. We will continue with deep venous thrombosis and gastrointestinal prophylaxis. Renal consult and surgical consult being requested. Follow up with Infectious Disease regarding antibiotics. Echocardiogram consistent with normal ejection fraction, normal ventricular size, and normal ventricular wall thickness. No vegetation and left ventricular diastolic function is normal. Discussed with the patient, the patient's mother and boyfriend who are bedside. Explained the patient's condition and clarified all their questions and concerns. Rajiv Krishna MD [facility] # [id number]
[2018-03-02] MEDS: HYDROmorphone 1 mg/ml ISec IVP PRN ×3 (03:44→11:33)
[2018-03-02] MEDS: Meropenem 1 GM in Sodium Chloride 0.9% 100 ML IVPB SCH (03:49)
--- NOTE | 2018-03-02 05:48 | CON ---
DATE: 03/01/2018 LOCATION: The patient is located in ICU 14-B. REQUESTED BY: Rajiv Krishna MD REASON FOR CONSULTATION: Acute renal failure, gram-negative sepsis, left hydronephrosis. HISTORY OF PRESENT ILLNESS: Mrs. Owens is a 27-year-old young female with a past medical history significant for nephrolithiasis, passed stones at age 19, since then no complaints, presented to the ER with chief complaints of sudden onset left flank pain associated with nausea, vomiting and the patient felt this is the worst pain, mostly in the left groin and also left flank. The patient denied any dysuria or frequency. Denies any fever on admission. Denies any swelling of the legs. Her hospital course was complicated by fever, chills, and hypotension requiring transfer to ICU yesterday. PAST MEDICAL HISTORY: Significant for nephrolithiasis. PAST SURGICAL HISTORY: History of shoulder surgery, history of Chiari malformation, migraine headaches, and depression, status post surgery for Chiari malformation. ALLERGIES: NO KNOWN DRUG ALLERGIES. SOCIAL HISTORY: Denies any smoking. Social alcohol use. No drugs. PERSONAL HISTORY: She is single. She has a boyfriend. FAMILY HISTORY: Not significant. Her uncle has kidney stones. REVIEW OF SYSTEMS: Significant for left flank pain, groin pain, fever, chills, status post hypotension. All other review of systems are reviewed as per HPI. MEDICATIONS: Her current medications include Dilaudid 0.5 mg every 3 hours p.r.n., gentamicin x1 dose, heparin 5000 subcu every 12 hours, Ringer lactate 100 mL/hour, meropenem 1 g every 6 hours, Tylenol, Zofran, and Zoloft 50 mg p.o. daily. PHYSICAL EXAMINATION: VITAL SIGNS: As follows: Blood pressure 110/65, pulse 94, respirations about 28, saturation 91%-92%. The patient is afebrile, 97.9 and T-max was 102.4 yesterday, as of today T-max is 99.8. GENERAL: Ms. Owens is a 27-year-old young female, moderately built, moderately nourished, not in acute distress. HEENT: Pupils normal and reactive to light and accommodation. Conjunctivae pink. Sclerae anicteric. Tongue is moist and trachea is midline. LUNGS: Symmetric. Bilateral breath sounds present. Clear to auscultation. CVS: [place]kie at the fifth intercostal space, midclavicular line. S1, S2 audible. No murmur or gallop. ABDOMEN: Normal in appearance. Soft, tympanitic. No guarding. No rigidity. Mild left flank tenderness present. No guarding or rigidity. No abdominal bruit. MANAGER CREATIVE: The patient is alert, awake, and oriented x3. Nonfocal neuro examination. Cranial nerves II through XII grossly intact. Sensory and motor system within normal limits. EXTREMITIES: No cyanosis, no clubbing, no edema. LABORATORY DATA: Her laboratory data include as follows: On admission as of 02/27/2018, WBC 7.2, hemoglobin 12.7, hematocrit 38.4, and platelets 261. Sodium 136, potassium 3.9, chloride 110, CO2 23, BUN 11, creatinine 0.7, glucose 94, calcium 9.4. Total bili 0.5, AST 18, ALT 25, alkaline phosphatase 62, total protein 6.9, albumin 4.3. Urinalysis: Yellow, hazy, pH 7, specific gravity 1.011, protein negative, blood glucose negative, ketones negative, blood 2+, nitrites negative, bilirubin negative, urobilinogen normal, leukocyte esterase trace, wbc 4, rbc 34, bacteria rare, and beta-hCG negative. As of 02/28/2018, WBC 16.4, hemoglobin 10.8, hematocrit is 32.2, platelets 146, and neutrophils 52, bands 39, lymph 7, monos 1. Sodium 133, potassium 3.5, chloride 102, CO2 23, BUN 11, creatinine 1, glucose 126, calcium 7.6, phosphorus 2.1, magnesium 1.3. As of 03/01/2018, WBC 20.7, hemoglobin 10.6, hematocrit is 32.9, platelets 101 and neutrophils 57, bands 36, lymph 3, monos 2, eosinophils 2. PT 18.9, INR 1.7, PTT 34. ABG: pH 7.35, pCO2 28, pO2 101, bicarb 18.2. Saturation 99.8 on FiO2 100% and lactic acid is 2.9. Sodium 136, potassium 4, chloride 107, CO2 16, BUN 16, creatinine 1.3, glucose 118, and calcium 6.9. Total bili 0.3, AST 26, ALT 26, alkaline phosphatase 54, total protein 5, albumin is 2.5. Amylase less than 30, and lipase less than 10. Urinalysis as of this morning: Yellow, clear, pH 5, specific gravity 1.021, protein 2+, glucose 1+, ketones trace, blood 1+, nitrites negative, bilirubin negative, urobilinogen normal, leukocyte esterase trace, wbc 19, rbc 10, and urine hCG is negative, budding yeast occasional. OTHER REPORTS: As of 02/28/2018: Urine culture is positive for Gram-negative rods and blood culture x2 positive for Gram-negative rods. OTHER REPORTS: CT of the abdomen and pelvis as of 02/27/2018, impression: 3 mm proximal left ureteral calculus with proximal hydroureter and fullness of the left renal pelvis, mildly thick walled under distended urinary bladder, small focus of air within the urinary bladder. Correlate for recent instrumentation versus infection. As of 02/28/2018, renal ultrasound: Bilateral nonobstructing renal calculi, mild left-sided hydronephrosis in the right kidney 12.7 x 4.3 x 5.7, nonobstructing 7 mm upper pole calculus, no hydronephrosis; left kidney measures 13.5 x 7.1 x 5.4 cm, nonobstructing 5 mm mid pole calculus, mild left-sided hydronephrosis. ASSESSMENT: In summary, Ms. Owens is a 27-year-old young female with nephrolithiasis, passing stones when she was 19, since then no history of stone passage in the last 9 years, was admitted with sudden onset of left flank pain and groin pain. Hospital course was complicated by fever, chills, and now blood culture positive and urine culture positive for Gram-negative rods and bandemia with increased blood urea nitrogen and creatinine and mild left hydronephrosis. 1. Nonoliguric acute renal failure, most likely secondary to mild acute tubular necrosis secondary to Gram-negative sepsis. 2. Left hydronephrosis secondary to most likely a ureteric stone. 3. Urosepsis secondary to Gram-negative. 4. Bilateral pleural effusions, most likely secondary to fluid overload. PLAN: Continue IV antibiotics as per ID recommendation. Follow up urine and blood culture report, status post left ureter stent placement by Dr. Thurston. Continue to monitor renal function. Continue to monitor WBC count. The patient may need complete workup for nephrolithiasis once acute episode is under control. We will follow with you. Thank you for allowing me to participate in your patient's care. Cheyenne Krishna MD
[2018-03-02 06:30] LABS: EOS # 0.5 K/uL (0.0-0.7); EOS % 2.8 % (0.0-4.0); HEMOGLOBIN 9.3 g/dL (11.0-16.0); LYMPH # 0.9 K/uL (1.0-4.3); LYMPH % 4.4 % (20.0-40.0); MEAN CELL VOLUME 91.2 fL (81.0-99.0); MEAN CORPUSCULAR HEMOGLOBIN 29.8 pg (27.0-31.0); MEAN CORPUSCULAR HGB CONC 32.7 g/dL (33.0-37.0); MEAN PLATELET VOLUME 8.4 fL (7.2-11.7); MONO # 0.4 K/uL (0.0-0.8); MONO % 2.2 % (0.0-10.0); NEUT % 90.6 % (50.0-75.0); PLATELET COUNT 93 K/uL (130-400); RED CELL DISTRIBUTION WIDTH 14.2 % (11.5-14.5); WHITE BLOOD COUNT 19.8 K/uL (4.8-10.8)
[2018-03-02 06:50] LABS: ALB/GLOB RATIO 0.9 (1.0-2.1); ALBUMIN 1.8 g/dL (3.5-5.0); ALT/SGPT 30 U/L (9-52); AST/SGOT 12 U/L (14-36); BLOOD UREA NITROGEN 11 mg/dL (7-17); CALCIUM 7.2 mg/dl (8.6-10.4); GFR NON-AFRICAN AMERICAN > 60
[2018-03-02] MEDS ORDERED: Potassium Phosphate 15 MMOLE in Sodium Chloride 0.9% 250 ML IVPB ONE (08:00)
[2018-03-02 08:37] LABS: BANDS 32 % (0-2); BASOPHIL 1 % (0-2); EOSINOPHIL 1 % (0-4); LYMPHOCYTE 3 % (20-40); MONOCYTE 2 % (0-10); NEUTROPHIL 61 % (50-75); PLATELET ESTIMATE DECREASED (NORMAL); TOTAL CELLS COUNTED 100
[2018-03-02 08:38] LABS: TOXIC GRANULATION PRESENT
[2018-03-02 08:39] LABS: BURR CELLS SLIGHT
[2018-03-02] MEDS: cefTRIAXone 2 GM in Sodium Chloride 0.9% 100 ML IVPB SCH (09:00)
--- NOTE | 2018-03-02 09:26 | RAD ---
Date of service: 03/01/2018 HISTORY: LEFT HYDRONEPHROSIS COMPARISON: CT abdomen and pelvis from 03/01/2018. FINDINGS: There are small stones overlying the right renal silhouette. No calcifications overlying the left renal silhouette. BOWEL: Normal. No obstruction. No free air. BONES: Normal. OTHER FINDINGS: None. IMPRESSION: Right nephrolithiasis. No radiographic evidence for left nephrolithiasis.
--- NOTE | 2018-03-02 10:16 | CP.CCUPN ---
<Baltazar Tovar - Last Filed: 03/02/18 10:22> CCU Subjective - Physician Review Subjective (Free Text): Critical care progress note: Pt seen and examined at bed side. No acute events overnight. Patient denies any abdominal or back pain. Tolerating liquid diet. Patient does complain of some headache, and states she has hx of migraines. No complaints. 12 Point ROS performed and neg other than stated above. CCU Objective - Vital Signs / Intake & Output Vital Signs (Last 4 hours): Vital Signs Temp Pulse Resp Pulse Ox 03/02/18 06:30 88 18 97 03/02/18 06:20 91 H 22 96 03/02/18 06:17 98.6 F Intake and Output (Last 8hrs): Intake & Output 03/01/18 03/02/18 03/02/18 22:59 06:59 14:59 Intake Total 970 850 100 Output Total 250 1300 Balance 720 -450 100 Intake: Intake, IV Amount 800 850 100 Left Hand 100 rt. ac #1 700 850 100 Oral 170 Output: Urine 250 1300 Urethral (Abebe) 250 1300 Other: # Bowel Movements 0 - Physical Exam Head: Positive for: Atraumatic, Normocephalic Pupils: Positive for: PERRL Extroacular Muscles: Positive for: EOMI Mouth: Positive for: Moist Mucous Membranes Neck: Positive for: Normal Range of Motion. Negative for: JVD Respiratory/Chest: Positive for: Clear to Auscultation, Good Air Exchange. Negative for: Wheezes, Rales Cardiovascular: Positive for: Normal S1, S2, Tachycardic Abdomen: Positive for: Normal Bowel Sounds. Negative for: Tenderness, Distention, Peritoneal Signs Upper Extremity: Negative for: Cyanosis, Edema Lower Extremity: Negative for: Edema, CALF TENDERNESS Neurological: Positive for: CN II-XII Intact Skin: Positive for: Warm, Dry Psychiatric: Positive for: Alert, Oriented x 3 - Medications Active Medications: Active Medications Generic Name Dose Route Start Last Admin Trade Name Freq PRN Reason Stop Dose Admin Acetaminophen 650 mg 02/28/18 17:07 03/02/18 06:17 Tylenol 325mg Tab PO 650 mg Q6 PRN Administration temp 101 and above Heparin Sodium (Porcine) 5,000 units 03/01/18 10:00 03/02/18 09:30 Heparin SC Not Given Q12 [facility] Hydromorphone HCl 0.5 mg 03/01/18 13:15 03/02/18 07:52 Dilaudid IVP 0.5 mg Q3H PRN Administration pain 5-10 Potassium Phosphate 15 mmole/ 255 mls @ 42.5 mls/hr 03/02/18 08:00 03/02/18 09:00 Sodium Chloride IVPB 03/02/18 13:59 42.5 mls/hr ONCE ONE Administration Ceftriaxone Sodium 2 gm/ 100 mls @ 100 mls/hr 03/02/18 10:00 03/02/18 09:00 Sodium Chloride IVPB 100 mls/hr Q24H [facility] Administration Protocol Ondansetron HCl 4 mg 02/28/18 17:22 03/01/18 01:39 Zofran Inj IVP 4 mg Q8 PRN Administration nausea and vomitting Sertraline HCl 50 mg 03/01/18 05:00 03/02/18 09:30 Zoloft PO 50 mg DAILY [facility]ANY Administration - Patient Studies Lab Studies: Microbiology Studies 02/28/18 09:32 Urine Culture - Final Urine,Clean Catch Escherichia Coli 02/28/18 11:05 Blood Culture - Final Blood Escherichia Coli Gram Stain - Final 02/28/18 10:50 Blood Culture - Final Blood Escherichia Coli Gram Stain - Final Lab Studies 03/02/18 03/02/18 03/01/18 Range/Units 06:23 06:23 12:56 WBC 19.8 H (4.8-10.8) K/uL RBC 3.10 L (3.80-5.20) Mil/uL Hgb 9.3 L (11.0-16.0) g/dL Hct 28.3 L (34.0-47.0) % MCV 91.2 D (81.0-99.0) fL MCH 29.8 (27.0-31.0) pg MCHC 32.7 L (33.0-37.0) g/dL RDW 14.2 (11.5-14.5) % Plt Count 93 L (130-400) K/uL MPV 8.4 (7.2-11.7) fL Neut % (Auto) 90.6 H (50.0-75.0) % Lymph % (Auto) 4.4 L (20.0-40.0) % [place]olls % (Auto) 2.2 (0.0-10.0) % Eos % (Auto) 2.8 (0.0-4.0) % Baso % (Auto) 0.0 (0.0-2.0) % Neut # (Auto) 18.0 H (1.8-7.0) K/uL Lymph # (Auto) 0.9 L (1.0-4.3) K/uL [place] # (Auto) 0.4 (0.0-0.8) K/uL Eos # (Auto) 0.5 (0.0-0.7) K/uL Baso # (Auto) 0.0 (0.0-0.2) K/uL Neutrophils % (Manual) 61 (50-75) % Band Neutrophils % 32 H* (0-2) % Lymphocytes % (Manual) 3 L (20-40) % Monocytes % (Manual) 2 (0-10) % Eosinophils % (Manual) 1 (0-4) % Basophils % (Manual) 1 (0-2) % Toxic Granulation Present Dohle Bodies Present Platelet Estimate Decreased L (NORMAL) [place] Cells Slight PT (9.7-12.2) SECONDS INR APTT (21-34) SECONDS Sodium 135 (132-148) mmol/L Potassium 3.7 (3.6-5.2) mmol/L Chloride 107 (98-107) mmol/L Carbon Dioxide 16 L (22-30) mmol/L Anion Gap 16 (10-20) BUN 11 (7-17) mg/dL Creatinine 0.5 L (0.7-1.2) mg/dL Est GFR ( Amer) > 60 Est GFR (Non-Af Amer) > 60 Random Glucose 66 (65-105) mg/dL Calcium 7.2 L (8.6-10.4) mg/dl Phosphorus 1.5 L (2.5-4.5) mg/dL Magnesium 1.7 (1.6-2.3) mg/dL Total Bilirubin 0.2 (0.2-1.3) mg/dL AST 12 L D (14-36) U/L ALT 30 (9-52) U/L Alkaline Phosphatase 58 (38-126) U/L Total Protein 3.8 L (6.3-8.3) g/dL Albumin 1.8 L D (3.5-5.0) g/dL Globulin 2.0 L (2.2-3.9) gm/dL Albumin/Globulin Ratio 0.9 L (1.0-2.1) Amylase (30-110) U/L Lipase (23-300) U/L Urine HCG, Qual Negative (NEGATIVE) 03/01/18 03/01/18 Range/Units 12:56 12:00 WBC (4.8-10.8) K/uL RBC (3.80-5.20) Mil/uL Hgb (11.0-16.0) g/dL Hct (34.0-47.0) % MCV (81.0-99.0) fL MCH (27.0-31.0) pg MCHC (33.0-37.0) g/dL RDW (11.5-14.5) % Plt Count (130-400) K/uL MPV (7.2-11.7) fL Neut % (Auto) (50.0-75.0) % Lymph % (Auto) (20.0-40.0) % [place]olls % (Auto) (0.0-10.0) % Eos % (Auto) (0.0-4.0) % Baso % (Auto) (0.0-2.0) % Neut # (Auto) (1.8-7.0) K/uL Lymph # (Auto) (1.0-4.3) K/uL [place] # (Auto) (0.0-0.8) K/uL Eos # (Auto) (0.0-0.7) K/uL Baso # (Auto) (0.0-0.2) K/uL Neutrophils % (Manual) (50-75) % Band Neutrophils % (0-2) % Lymphocytes % (Manual) (20-40) % Monocytes % (Manual) (0-10) % Eosinophils % (Manual) (0-4) % Basophils % (Manual) (0-2) % Toxic Granulation Dohle Bodies Platelet Estimate (NORMAL) Fidel Cells PT 18.9 H (9.7-12.2) SECONDS INR 1.7 APTT 34 (21-34) SECONDS Sodium (132-148) mmol/L Potassium (3.6-5.2) mmol/L Chloride (98-107) mmol/L Carbon Dioxide (22-30) mmol/L Anion Gap (10-20) BUN (7-17) mg/dL Creatinine (0.7-1.2) mg/dL Est GFR ( Amer) Est GFR (Non-Af Amer) Random Glucose (65-105) mg/dL Calcium (8.6-10.4) mg/dl Phosphorus (2.5-4.5) mg/dL Magnesium (1.6-2.3) mg/dL Total Bilirubin (0.2-1.3) mg/dL AST (14-36) U/L ALT (9-52) U/L Alkaline Phosphatase (38-126) U/L Total Protein (6.3-8.3) g/dL Albumin (3.5-5.0) g/dL Globulin (2.2-3.9) gm/dL Albumin/Globulin Ratio (1.0-2.1) Amylase < 30 L (30-110) U/L Lipase < 10 L (23-300) U/L Urine HCG, Qual (NEGATIVE) Laboratory Results - last 24 hr 03/01/18 03/01/18 03/01/18 12:00 12:56 12:56 WBC RBC Hgb Hct MCV MCH MCHC RDW Plt Count MPV Neut % (Auto) Lymph % (Auto) [place] % (Auto) Eos % (Auto) Baso % (Auto) Neut # (Auto) Lymph # (Auto) [place] # (Auto) Eos # (Auto) Baso # (Auto) Neutrophils % (Manual) Band Neutrophils % Lymphocytes % (Manual) Monocytes % (Manual) Eosinophils % (Manual) Basophils % (Manual) Toxic Granulation Dohle Bodies Platelet Estimate [place] Cells PT 18.9 H INR 1.7 APTT 34 Sodium Potassium Chloride Carbon Dioxide Anion Gap BUN Creatinine Est GFR ( Amer) Est GFR (Non-Af Amer) Random Glucose Calcium Phosphorus Magnesium Total Bilirubin AST ALT Alkaline Phosphatase Total Protein Albumin Globulin Albumin/Globulin Ratio Amylase < 30 L Lipase < 10 L Urine HCG, Qual Negative 03/02/18 03/02/18 06:23 06:23 WBC 19.8 H RBC 3.10 L Hgb 9.3 L Hct 28.3 L MCV 91.2 D MCH 29.8 MCHC 32.7 L RDW 14.2 Plt Count 93 L MPV 8.4 Neut % (Auto) 90.6 H Lymph % (Auto) 4.4 L [place] % (Auto) 2.2 Eos % (Auto) 2.8 Baso % (Auto) 0.0 Neut # (Auto) 18.0 H Lymph # (Auto) 0.9 L [place] # (Auto) 0.4 Eos # (Auto) 0.5 Baso # (Auto) 0.0 Neutrophils % (Manual) 61 Band Neutrophils % 32 H* Lymphocytes % (Manual) 3 L Monocytes % (Manual) 2 Eosinophils % (Manual) 1 Basophils % (Manual) 1 Toxic Granulation Present Dohle Bodies Present Platelet Estimate Decreased L [place] Cells Slight PT INR APTT Sodium 135 Potassium 3.7 Chloride 107 Carbon Dioxide 16 L Anion Gap 16 BUN 11 Creatinine 0.5 L Est GFR ( Amer) > 60 Est GFR (Non-Af Amer) > 60 Random Glucose 66 Calcium 7.2 L Phosphorus 1.5 L Magnesium 1.7 Total Bilirubin 0.2 AST 12 L D ALT 30 Alkaline Phosphatase 58 Total Protein 3.8 L Albumin 1.8 L D Globulin 2.0 L Albumin/Globulin Ratio 0.9 L Amylase Lipase Urine HCG, Qual EKG/Cardiology Studies: Cardiology / EKG Studies 03/01/18 12:43 ELECTROCARDIOGRAM Stat Comment: Mode Of Transportation: Reason For Exam: pre op Review of Systems - Review of Systems All systems: reviewed and no additional remarkable complaints except (HPI) Critical Care Progress Note - Nutrition Nutrition: Nutrition Category Date Time Status Liquid Diet [DIET] Diets 03/01/18 Breakfast Active Assessment/Plan - Assessment and Plan (Free Text) Assessment: 27 F with PMHx of nephrolithiasis, brain surgery for congenital cysts/ malformation presents with recurrent left kidney stone, 3mm, c/b gram negative sepsis. S/p cystoscopy and stent placement POD1. Neuro: - Alert and oriented x 3 - pain control Pulm: - Currently on nasal cannula at 3 L - Maintain SPO2 > 92% - Encourage Incentive spirometry CV: - Will maintain MAP > 65 - d/tiana LR @ 100 - F/u echo report EF within normal range GI: - Liquid diet - Advance diet as tolerated - GI ppx - CT abd today shows gallbladder distention; no LFT elevation or clinical signs of cholecystitis, neg murpheys sign Hem: - Cont to monitor Pl today 93 likely 2/2 sepsis - monitor H/H Renal: - CT abdomen today shows mild L sided hydro, distal L uretal calculus not definitely seen - Urology consulted for recs - s/p cysto and stent placement - must follow up as an outpatient for stent removal - monitor I and O - Replete electrolytes as needed Endo: - maintain euglycemic ID: - Started on Rocephin - d/tiana Meropenem and Gentamicin - Bacteremia with E coli - F/u septic work up DVT proph - heparin sq GI proph - not currently indicated Code status - full code Case and plan was reviewed and discussed in detail with Dr Smith. <Epifanio Smith M - Last Filed: 03/02/18 15:41> CCU Objective - Vital Signs / Intake & Output Vital Signs (Last 4 hours): Vital Signs Temp Pulse Resp BP Pulse Ox 03/02/18 15:00 82 19 87 L 03/02/18 14:50 77 20 88 L 03/02/18 14:40 79 25 H 92 L 03/02/18 14:30 82 27 H 91 L 03/02/18 14:20 86 18 90 L 03/02/18 14:15 90 18 111/75 82 L 03/02/18 14:10 82 23 87 L 03/02/18 14:00 77 22 87 L 03/02/18 13:50 76 22 88 L 03/02/18 13:40 78 23 89 L 03/02/18 13:30 82 26 H 88 L 03/02/18 13:20 79 21 88 L 03/02/18 13:15 83 24 99/59 L 87 L 03/02/18 13:10 83 22 87 L 03/02/18 13:00 82 23 87 L 03/02/18 12:50 82 24 88 L 03/02/18 12:40 85 21 89 L 03/02/18 12:30 84 25 H 89 L 03/02/18 12:20 82 26 H 90 L 03/02/18 12:15 90 101/58 L 88 L 03/02/18 12:10 103 H 24 88 L 03/02/18 12:00 98.3 F 84 19 89 L 03/02/18 11:50 94 H 20 85 L Intake and Output (Last 8hrs): Intake & Output 03/02/18 03/02/18 03/02/18 06:59 14:59 22:59 Intake Total 850 100 Output Total 1300 Balance -450 100 Intake: Intake, IV Amount 850 100 rt. ac #1 850 100 Output: Urine 1300 Urethral (Abebe) 1300 - Medications Active Medications: Active Medications Generic Name Dose Route Start Last Admin Trade Name Freq PRN Reason Stop Dose Admin Acetaminophen 650 mg 02/28/18 17:07 03/02/18 06:17 Tylenol 325mg Tab PO 650 mg Q6 PRN Administration temp 101 and above Heparin Sodium (Porcine) 5,000 units 03/01/18 10:00 03/02/18 09:30 Heparin SC Not Given Q12 [facility] Ceftriaxone Sodium 2 gm/ 100 mls @ 100 mls/hr 03/02/18 10:00 03/02/18 09:00 Sodium Chloride IVPB 100 mls/hr Q24H [facility] Administration Protocol Ondansetron HCl 4 mg 02/28/18 17:22 03/02/18 11:32 Zofran Inj IVP 4 mg Q8 PRN Administration nausea and vomitting Sertraline HCl 50 mg 03/01/18 05:00 03/02/18 09:30 Zoloft PO 50 mg DAILY [facility] Administration Tramadol HCl 25 mg 03/02/18 14:42 03/02/18 15:04 Ultram PO 25 mg TID PRN Administration Pain, moderate (4-7) - Patient Studies Lab Studies: Microbiology Studies 03/01/18 01:12 MRSA Culture (Admit) - Final Naris MRSA NOT DETECTED 02/28/18 11:05 Blood Culture - Final Blood Escherichia Coli Gram Stain - Final 02/28/18 09:32 Urine Culture - Final Urine,Clean Catch Escherichia Coli 02/28/18 10:50 Blood Culture - Final Blood Escherichia Coli Gram Stain - Final Lab Studies 03/02/18 03/02/18 Range/Units 06:23 06:23 WBC 19.8 H (4.8-10.8) K/uL RBC 3.10 L (3.80-5.20) Mil/uL Hgb 9.3 L (11.0-16.0) g/dL Hct 28.3 L (34.0-47.0) % MCV 91.2 D (81.0-99.0) fL MCH 29.8 (27.0-31.0) pg MCHC 32.7 L (33.0-37.0) g/dL RDW 14.2 (11.5-14.5) % Plt Count 93 L (130-400) K/uL MPV 8.4 (7.2-11.7) fL Neut % (Auto) 90.6 H (50.0-75.0) % Lymph % (Auto) 4.4 L (20.0-40.0) % [place]olls % (Auto) 2.2 (0.0-10.0) % Eos % (Auto) 2.8 (0.0-4.0) % Baso % (Auto) 0.0 (0.0-2.0) % Neut # (Auto) 18.0 H (1.8-7.0) K/uL Lymph # (Auto) 0.9 L (1.0-4.3) K/uL [place] # (Auto) 0.4 (0.0-0.8) K/uL Eos # (Auto) 0.5 (0.0-0.7) K/uL Baso # (Auto) 0.0 (0.0-0.2) K/uL Neutrophils % (Manual) 61 (50-75) % Band Neutrophils % 32 H* (0-2) % Lymphocytes % (Manual) 3 L (20-40) % Monocytes % (Manual) 2 (0-10) % Eosinophils % (Manual) 1 (0-4) % Basophils % (Manual) 1 (0-2) % Toxic Granulation Present Dohle Bodies Present Platelet Estimate Decreased L (NORMAL) [place] Cells Slight Sodium 135 (132-148) mmol/L Potassium 3.7 (3.6-5.2) mmol/L Chloride 107 (98-107) mmol/L Carbon Dioxide 16 L (22-30) mmol/L Anion Gap 16 (10-20) BUN 11 (7-17) mg/dL Creatinine 0.5 L (0.7-1.2) mg/dL Est GFR ( Amer) > 60 Est GFR (Non-Af Amer) > 60 Random Glucose 66 (65-105) mg/dL Calcium 7.2 L (8.6-10.4) mg/dl Phosphorus 1.5 L (2.5-4.5) mg/dL Magnesium 1.7 (1.6-2.3) mg/dL Total Bilirubin 0.2 (0.2-1.3) mg/dL AST 12 L D (14-36) U/L ALT 30 (9-52) U/L Alkaline Phosphatase 58 (38-126) U/L Total Protein 3.8 L (6.3-8.3) g/dL Albumin 1.8 L D (3.5-5.0) g/dL Globulin 2.0 L (2.2-3.9) gm/dL Albumin/Globulin Ratio 0.9 L (1.0-2.1) Laboratory Results - last 24 hr 03/02/18 03/02/18 06:23 06:23 WBC 19.8 H RBC 3.10 L Hgb 9.3 L Hct 28.3 L MCV 91.2 D MCH 29.8 MCHC 32.7 L RDW 14.2 Plt Count 93 L MPV 8.4 Neut % (Auto) 90.6 H Lymph % (Auto) 4.4 L [place] % (Auto) 2.2 Eos % (Auto) 2.8 Baso % (Auto) 0.0 Neut # (Auto) 18.0 H Lymph # (Auto) 0.9 L [place] # (Auto) 0.4 Eos # (Auto) 0.5 Baso # (Auto) 0.0 Neutrophils % (Manual) 61 Band Neutrophils % 32 H* Lymphocytes % (Manual) 3 L Monocytes % (Manual) 2 Eosinophils % (Manual) 1 Basophils % (Manual) 1 Toxic Granulation Present Dohle Bodies Present Platelet Estimate Decreased L [place] Cells Slight Sodium 135 Potassium 3.7 Chloride 107 Carbon Dioxide 16 L Anion Gap 16 BUN 11 Creatinine 0.5 L Est GFR ( Amer) > 60 Est GFR (Non-Af Amer) > 60 Random Glucose 66 Calcium 7.2 L Phosphorus 1.5 L Magnesium 1.7 Total Bilirubin 0.2 AST 12 L D ALT 30 Alkaline Phosphatase 58 Total Protein 3.8 L Albumin 1.8 L D Globulin 2.0 L Albumin/Globulin Ratio 0.9 L Critical Care Progress Note - Nutrition Nutrition: Nutrition Category Date Time Status Liquid Diet [DIET] Diets 03/01/18 Breakfast Active Assessment/Plan - Assessment and Plan (Free Text) Assessment: Above resident documents my clinical management Compelx UTI/sepsis -E. Colie (merritt sensitive) -repet Blood culture -de-scaalte abx to ceftriaxone -d/c IVF as aptietn is clinically fluid overloaded -PAtient encouraed incentive spirometry -Patient remains hemodynamically stable - Date & Time Date: 03/02/18 Time: 15:41
--- NOTE | 2018-03-02 10:23 | CP.PCM.PN ---
Subjective - Date & Time of Evaluation Date of Evaluation: 03/02/18 Time of Evaluation: 10:23 - Subjective Subjective: Progress note dictated #[id number] Objective - Vital Signs/Intake and Output Vital Signs (last 24 hours): Temp Pulse Resp BP Pulse Ox 98.6 F 88 18 106/68 97 03/02/18 06:17 03/02/18 06:30 03/02/18 06:30 03/02/18 06:15 03/02/18 06:30 Intake and Output: 03/02/18 03/02/18 06:59 18:59 Intake Total 1370 100 Output Total 1300 Balance 70 100 - Medications Medications: Current Medications Acetaminophen (Tylenol 325mg Tab) 650 mg PO Q6 PRN PRN Reason: temp 101 and above Last Admin: 03/02/18 06:17 Dose: 650 mg Heparin Sodium (Porcine) (Heparin) 5,000 units SC Q12 [facility] Last Admin: 03/02/18 09:30 Dose: Not Given Hydromorphone HCl (Dilaudid) 0.5 mg IVP Q3H PRN PRN Reason: pain 5-10 Last Admin: 03/02/18 07:52 Dose: 0.5 mg Potassium Phosphate 15 mmole/ (Sodium Chloride) 255 mls @ 42.5 mls/hr IVPB ONCE ONE Stop: 03/02/18 13:59 Last Admin: 03/02/18 09:00 Dose: 42.5 mls/hr Ceftriaxone Sodium 2 gm/ (Sodium Chloride) 100 mls @ 100 mls/hr IVPB Q24H [facility] PRN Reason: Protocol Last Admin: 03/02/18 09:00 Dose: 100 mls/hr Ondansetron HCl (Zofran Inj) 4 mg IVP Q8 PRN PRN Reason: nausea and vomitting Last Admin: 03/01/18 01:39 Dose: 4 mg Sertraline HCl (Zoloft) 50 mg PO DAILY [facility] Last Admin: 03/02/18 09:30 Dose: 50 mg - Labs Labs: 03/02/18 06:23 03/02/18 06:23 PT 18.9 SECONDS (9.7-12.2) H 03/01/18 12:56 INR 1.7 03/01/18 12:56 APTT 34 SECONDS (21-34) 03/01/18 12:56
--- NOTE | 2018-03-02 11:04 | RAD ---
Date of service: 03/02/2018 PROCEDURE: CHEST RADIOGRAPH, 1 VIEW HISTORY: POST PICC INSERTION COMPARISON: 03/01/2018 FINDINGS: LUNGS: Bibasilar opacities, worsened compared to prior examination. PLEURA: Probable small left pleural effusion. No definite right pleural effusion. No pneumothorax. CARDIOVASCULAR: Normal heart size. Congestive change. New right PICC catheter terminates at the level of the superior vena cava. OSSEOUS STRUCTURES: No significant abnormalities. VISUALIZED UPPER ABDOMEN: Normal. OTHER FINDINGS: None. IMPRESSION: New right PICC catheter terminates in the region of superior vena cava. Bibasilar opacities and probable small left pleural effusion
[2018-03-02] MEDS: Tramadol 25 mg PO PRN ×2 (15:04→21:00)
[2018-03-02] MEDS ORDERED: Valproate 500 MG in Sodium Chloride 0.9% 100 ML IVPB ONE (15:56)
[2018-03-02] MEDS ORDERED: Apap-Butalbital-Caffeine 325-50-40mg Tab PO STA (15:57)
--- NOTE | 2018-03-02 17:34 | CP.PCM.PN ---
Subjective - Date & Time of Evaluation Date of Evaluation: 03/02/18 Time of Evaluation: 09:00 - Subjective Subjective: c/o headache no fever no neuro deficits neuroplogy on board merrem/ genta d/c'd by ICU team- now on Rocephin growing pansensitive e coli Objective - Vital Signs/Intake and Output Vital Signs (last 24 hours): Temp Pulse Resp BP Pulse Ox 98.4 F 83 25 H 104/68 83 L 03/02/18 16:00 03/02/18 17:20 03/02/18 17:20 03/02/18 17:15 03/02/18 17:20 Intake and Output: 03/02/18 03/02/18 06:59 18:59 Intake Total 1370 100 Output Total 1300 Balance 70 100 - Medications Medications: Current Medications Acetaminophen (Tylenol 325mg Tab) 650 mg PO Q6 PRN PRN Reason: temp 101 and above Last Admin: 03/02/18 06:17 Dose: 650 mg Heparin Sodium (Porcine) (Heparin) 5,000 units SC Q12 [facility] Last Admin: 03/02/18 09:30 Dose: Not Given Ceftriaxone Sodium 2 gm/ (Sodium Chloride) 100 mls @ 100 mls/hr IVPB Q24H [facility] PRN Reason: Protocol Last Admin: 03/02/18 09:00 Dose: 100 mls/hr Ondansetron HCl (Zofran Inj) 4 mg IVP Q8 PRN PRN Reason: nausea and vomitting Last Admin: 03/02/18 11:32 Dose: 4 mg Sertraline HCl (Zoloft) 50 mg PO DAILY [facility] Last Admin: 03/02/18 09:30 Dose: 50 mg Tramadol HCl (Ultram) 25 mg PO TID PRN PRN Reason: Pain, moderate (4-7) Last Admin: 03/02/18 15:04 Dose: 25 mg - Labs Labs: 03/02/18 06:23 03/02/18 06:23 PT 18.9 SECONDS (9.7-12.2) H 03/01/18 12:56 INR 1.7 03/01/18 12:56 APTT 34 SECONDS (21-34) 03/01/18 12:56 - Constitutional Appears: Non-toxic, Chronically Ill - Head Exam Head Exam: NORMOCEPHALIC - Eye Exam Eye Exam: PERRL - ENT Exam ENT Exam: Mucous Membranes Dry - Neck Exam Neck Exam: absent: Lymphadenopathy - Respiratory Exam Respiratory Exam: Decreased Breath Sounds - Cardiovascular Exam Cardiovascular Exam: REGULAR RHYTHM - GI/Abdominal Exam GI & Abdominal Exam: Distended - Rectal Exam Rectal Exam: Deferred - Exam Exam: NORMAL INSPECTION - Extremities Exam Extremities Exam: absent: Pedal Edema - Back Exam Back Exam: absent: CVA tenderness (L), CVA tenderness (R) - Neurological Exam Neurological Exam: Alert, Awake, Oriented x3 - Psychiatric Exam Psychiatric exam: Normal Mood - Skin Skin Exam: Dry Assessment and Plan (1) Nephrolithiasis Status: Acute (2) Gram negative sepsis Status: Acute (3) UTI (urinary tract infection) Status: Acute - Assessment and Plan (Free Text) Assessment: e coli bacteremia/ sepsis sensitive to ampicillin and rocephin cont rx total [address] Banks in ICU
--- NOTE | 2018-03-02 17:53 | CT ---
Date of service: 03/02/2018 PROCEDURE: CT HEAD WITHOUT CONTRAST. HISTORY: acute onset headache COMPARISON: None available. TECHNIQUE: Axial computed tomography images were obtained through the head/brain without intravenous contrast. Radiation dose: Total exam DLP = 1611.1 mGy-cm. This CT exam was performed using one or more of the following dose reduction techniques: Automated exposure control, adjustment of the mA and/or kV according to patient size, and/or use of iterative reconstruction technique. FINDINGS: HEMORRHAGE: No intracranial hemorrhage. BRAIN: No mass effect or edema. No atrophy or chronic microvascular ischemic changes. VENTRICLES: Unremarkable. No hydrocephalus. CALVARIUM: There is midline posterior occipital bone defect noted likely represent prior craniectomy. No evidence of acute displaced fracture. PARANASAL SINUSES: Unremarkable as visualized. No significant inflammatory changes. MASTOID AIR CELLS: Unremarkable as visualized. No inflammatory changes. OTHER FINDINGS: None. IMPRESSION: No evidence of acute intracranial hemorrhage mass effect or midline shift. Baseline study. 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
--- NOTE | 2018-03-02 19:09 | CP.PCM.PN ---
Subjective - Date & Time of Evaluation Date of Evaluation: 03/02/18 Time of Evaluation: 19:09 - Subjective Subjective: pt is seen and examined, follow up consult is dictated #[id number] add lasix 40 mg ivp x1 presley, consider bid x2 days Objective - Vital Signs/Intake and Output Vital Signs (last 24 hours): Temp Pulse Resp BP Pulse Ox 98.4 F 83 25 H 104/68 83 L 03/02/18 16:00 03/02/18 17:20 03/02/18 17:20 03/02/18 17:15 03/02/18 17:20 Intake and Output: 03/02/18 03/03/18 18:59 06:59 Intake Total 580 Output Total 1800 Balance -1220 - Medications Medications: Current Medications Acetaminophen (Tylenol 325mg Tab) 650 mg PO Q6 PRN PRN Reason: temp 101 and above Last Admin: 03/02/18 06:17 Dose: 650 mg Heparin Sodium (Porcine) (Heparin) 5,000 units SC Q12 [facility] Last Admin: 03/02/18 09:30 Dose: Not Given Ceftriaxone Sodium 2 gm/ (Sodium Chloride) 100 mls @ 100 mls/hr IVPB Q24H [facility] PRN Reason: Protocol Last Admin: 03/02/18 09:00 Dose: 100 mls/hr Ondansetron HCl (Zofran Inj) 4 mg IVP Q8 PRN PRN Reason: nausea and vomitting Last Admin: 03/02/18 11:32 Dose: 4 mg Sertraline HCl (Zoloft) 50 mg PO DAILY BETHANY Last Admin: 03/02/18 09:30 Dose: 50 mg Tramadol HCl (Ultram) 25 mg PO TID PRN PRN Reason: Pain, moderate (4-7) Last Admin: 03/02/18 15:04 Dose: 25 mg - Labs Labs: 03/02/18 06:23 03/02/18 06:23 PT 18.9 SECONDS (9.7-12.2) H 03/01/18 12:56 INR 1.7 03/01/18 12:56 APTT 34 SECONDS (21-34) 03/01/18 12:56
[2018-03-02 22:33] LABS: PHENCYCLIDINE, UR NEGATIVE (NEGATIVE)
[2018-03-02 23:02] LABS: BARBITURATES, UR POSITIVE (NEGATIVE); BENZODIAZEPINES, UR POSITIVE (NEGATIVE); OPIATES, UR POSITIVE (NEGATIVE)
--- NOTE | 2018-03-03 01:47 | PN ---
DATE: 03/02/2018 SUBJECTIVE: The patient was seen and examined at bedside. The patient is feeling slightly better than yesterday. Abdominal pain is better but still present. Complaining of mild headache. No nausea. Tolerated p.o. feeds this morning. Denies any chest pain. Breathing is slightly better than yesterday. Denies any other neurologic symptoms. PHYSICAL EXAMINATION: GENERAL: Young female, lying in bed, in no acute distress. VITAL SIGNS: Blood pressure 106/68, pulse 68, respirations 15, temperature 98.4 degrees Fahrenheit, T-max is 100.2. O2 sats 90% on 2 L nasal cannula. HEENT: Pupils equal, round, reacting to light and accommodation. Extraocular muscles intact. No icterus. No pallor. No oral thrush. No pharyngeal congestion. NECK: Supple. No JVD. LUNGS: Bilateral vesicular breath sounds. Bilateral decreased crackles heard. CVS: S1, S2 present. Regular. ABDOMEN: Soft. Left-sided tenderness noted. Left renal angle tenderness present. No rigidity. No guarding. LOOM OPERATOR: Alert, awake, oriented x3. No focal deficits noted. EXTREMITIES: No edema. Palpable peripheral pulses. MEDICATIONS: Include Tylenol 650 mg p.o. every 6 hours p.r.n., Rocephin 2 g IV every 24 hours, heparin 5000 units subcu every 12 hours, Zofran 4 mg IV push every 8 hours p.r.n., Zoloft 50 mg daily, Tramadol 25 mg p.o. t.i.d. LABORATORY DATA: From this morning, WBC 19.8, hemoglobin 9.3, hematocrit 28.3, platelets 93, bands 32. Sodium 135, potassium 3.7, chloride 107, bicarb 16, BUN 11, creatinine 0.5, glucose 66, calcium 7.2, phosphorus 1.5, magnesium 1.7. Total bilirubin 0.2, AST 12, ALT 30, alkaline phosphatase 58, total protein 3.8, albumin 1.8. Urine culture and blood culture positive for E. coli. Sensitivities still pending. CT head consistent with no evidence of acute intracranial hemorrhage, mass effect, or midline shift. Baseline study. Midline inferior occipital bone defect, likely represent prior craniectomy. Chest x-ray from this morning shows new right catheter, terminates in the region of the superior vena cava. Bibasilar opacities and probable small left pleural effusion. ASSESSMENT AND PLAN: Young female with history of Chiari malformation, status post surgery, history of renal stones, admitted for left-sided renal colic with left ureteral stone, gram-negative sepsis, electrolyte disorder, mild thrombocytopenia, headaches, bilateral pleural effusions improving on chest x-ray, status post peripherally inserted central catheter placement, status post hypotension, status post cystoscopy, and left ureteral stent placement. The patient is still being monitored in ICU. We will give Tylenol for her headache. We will request neurology evaluation. We will continue with current IV fluids. The patient's antibiotics switched to Rocephin as cultures are sensitive to cephalosporin. We will repeat blood cultures. We will continue with incentive spirometry. Advance diet as tolerated. We will give deep venous thrombosis and gastrointestinal prophylaxis. We will monitor electrolytes, replace phosphorus, monitor hemoglobin and hematocrit and platelets. Mild thrombocytopenia, probably secondary to gram-negative sepsis. Follow up with Urology. Infectious Disease recommending 14 days of antibiotics. We will continue with their supportive care. Discussed with the patient's mother and father who were at bedside. Rajiv Krishna MD
--- NOTE | 2018-03-03 03:35 | PN ---
DATE: 03/02/2018 LOCATION: ICU room 14 B. REQUESTED BY: Dr. Rajiv Krishna. SUBJECTIVE: Mrs. Owens is a 27 years old young female with a history of nephrolithiasis, passing first-time stone at age 19 and since then never passed a stone who was admitted with severe left flank pain, sudden onset and also in the groin and subsequently the patient developed gram-negatives sepsis and UTI. Subsequently, requiring transfer to ICU, status post left ureter stent placement yesterday. Now blood culture and urine culture is positive for E-coli. The patient is feeling much better, except headache this morning. No nausea, vomiting, diarrhea. Less abdominal pain. The patient is voiding well. PHYSICAL EXAMINATION: VITAL SIGNS: Blood pressure 114/75, pulse 85, respiration 15, saturation 85% on Venti mask 50%. Height 5 feet 7 inches, weight is 155 pounds. GENERAL: Mrs. Owens is a 27 years old young female with mild respiratory distress on face mask. HEENT: Pupils normal, react to light and accommodation. Conjunctivae pink. Sclerae anicteric. Tongue is moist and trachea is midline. LUNGS: Symmetric on both sides. Occasional basal crackles present with decreased breath sounds in the lower bases. CVS: [place] at the fifth intercostal space, half inch midclavicular line. S1 and S2 audible. No murmur or gallop. ABDOMEN: Normal in appearance, soft, tympanic. Mild left flank tenderness present. No guarding, no rigidity. No abdominal bruit. INSULATION AND FLOORING ASSEMBLER: The patient is alert, awake, oriented x3. Nonfocal neuro examination. Cranial nerves II through XII grossly intact. Sensory and motor system is within normal limits. EXTREMITIES: No cyanosis, no clubbing. The patient has anasarca, edema of the both upper and lower extremities and abdominal wall. CURRENT MEDICATIONS: Rocephin 2 gm every 24 hours, subcu heparin 5000 units every 12 hours, Tylenol and tramadol 25 mg p.o. t.i.d., Zofran 4 mg IV every 8 hours p.r.n. and Zoloft 50 mg p.o. daily. LABORATORY DATA: As of 02/28/2018, urine culture positive for E. coli and blood culture x2 positive for E-coli and E-coli is sensitive to all antibiotics. ASSESSMENT: In summary, Mrs. Owens is a 27 years old young female with a history of nephrolithiasis was admitted with left flank pain and with fever, chills, subsequently developed hypotension requiring transfer to ICU for possible sepsis and now blood culture and urine culture positive for Gram-negative rods and positive for Escherichia coli sensitive to all antibiotic and now on Rocephin. 1. Status post acute renal failure most likely secondary to hypotension secondary to sepsis. 2. Escherichia coli sepsis, most likely source is the urine as both urine and blood culture are positive for same organism. 3. Left hydronephrosis secondary to obstructive uropathy secondary to possible ureteric stone. 4. Status post ureter stent placement. PLAN: The patient will need workup for nephrolithiasis once acute episode is under control. We will give Lasix 40 mg IV push x1 dose and we will give another Lasix 40 mg IV in a.m. if blood pressure is stable. We will follow with you. Thank you for allowing me to participate in your patient's care. Cheyenne Krishna MD
[2018-03-03] MEDS: Tramadol 25 mg PO PRN (06:12)
[2018-03-03] MEDS ORDERED: Apap-Butalbital-Caffeine 325-50-40mg Tab PO STA (06:38)
[2018-03-03 06:40] LABS: BASO % 0.1 % (0.0-2.0); EOS # 0.2 K/uL (0.0-0.7); HEMOGLOBIN 9.4 g/dL (11.0-16.0); LYMPH # 0.8 K/uL (1.0-4.3); LYMPH % 5.1 % (20.0-40.0); MEAN CELL VOLUME 90.3 fL (81.0-99.0); MEAN CORPUSCULAR HEMOGLOBIN 30.1 pg (27.0-31.0); MEAN CORPUSCULAR HGB CONC 33.4 g/dL (33.0-37.0); MEAN PLATELET VOLUME 8.9 fL (7.2-11.7); MONO # 0.9 K/uL (0.0-0.8); MONO % 5.9 % (0.0-10.0); NEUT # 13.4 K/uL (1.8-7.0); NEUT % 87.9 % (50.0-75.0); PLATELET COUNT 114 K/uL (130-400); RBC 3.13 Mil/uL (3.80-5.20); RED CELL DISTRIBUTION WIDTH 13.8 % (11.5-14.5); WHITE BLOOD COUNT 15.2 K/uL (4.8-10.8)
[2018-03-03 07:01] LABS: ALBUMIN 2.5 g/dL (3.5-5.0); ALT/SGPT 27 U/L (9-52); AST/SGOT 12 U/L (14-36); BLOOD UREA NITROGEN 19 mg/dL (7-17); CALCIUM 8.1 mg/dl (8.6-10.4); GFR NON-AFRICAN AMERICAN > 60
[2018-03-03] MEDS ORDERED: Potassium Chl 40 mEq in D5-1/2 1,000 ML IV SCH (07:30)
[2018-03-03 09:00] LABS: BANDS 22 % (0-2); LYMPHOCYTE 3 % (20-40); MONOCYTE 5 % (0-10); NEUTROPHIL 70 % (50-75); TOTAL CELLS COUNTED 100
[2018-03-03] MEDS ORDERED: Potassium Phosphate 15 MMOLE in Sodium Chloride 0.9% 250 ML IVPB ONE ×2 (09:00→15:30)
[2018-03-03 09:01] LABS: ANISOCYTOSIS SLIGHT; HYPOCHROMIC SLIGHT; PLATELET ESTIMATE SLIGHTLY DECREASED (NORMAL); POLYCHROMIC SLIGHT; TOXIC GRANULATION PRESENT
[2018-03-03] MEDS ORDERED: Potassium Chloride 20 mEq ER Tab PO ONE (10:00)
[2018-03-03] MEDS: cefTRIAXone 2 GM in Sodium Chloride 0.9% 100 ML IVPB SCH (10:16)
--- NOTE | 2018-03-03 10:48 | CP.PCM.PN ---
Subjective - Date & Time of Evaluation Date of Evaluation: 03/03/18 Time of Evaluation: 10:48 - Subjective Subjective: Progress note dictated #[id number] Objective - Vital Signs/Intake and Output Vital Signs (last 24 hours): Temp Pulse Resp BP Pulse Ox 97.8 F 57 L 25 H 116/77 92 L 03/03/18 08:00 03/03/18 08:00 03/03/18 08:00 03/03/18 03:55 03/03/18 08:00 Intake and Output: 03/03/18 03/03/18 06:59 18:59 Intake Total 50 Output Total 1925 Balance -1875 - Medications Medications: Current Medications Acetaminophen (Tylenol 325mg Tab) 650 mg PO Q6 PRN PRN Reason: temp 101 and above Last Admin: 03/02/18 23:42 Dose: 650 mg Acetaminophen/Butalbital/Caffeine (Fioricet) 1 tab PO Q4 PRN PRN Reason: Headache Heparin Sodium (Porcine) (Heparin) 5,000 units SC Q12 [facility] Last Admin: 03/03/18 10:17 Dose: Not Given Ceftriaxone Sodium 2 gm/ (Sodium Chloride) 100 mls @ 100 mls/hr IVPB Q24H [facility] PRN Reason: Protocol Last Admin: 03/03/18 10:16 Dose: 100 mls/hr Potassium Phosphate 15 mmole/ (Sodium Chloride) 255 mls @ 42.5 mls/hr IVPB ONCE ONE Stop: 03/03/18 14:59 Last Admin: 03/03/18 10:16 Dose: 42.5 mls/hr Potassium Phosphate 15 mmole/ (Sodium Chloride) 255 mls @ 42.5 mls/hr IVPB ONCE ONE Stop: 03/03/18 21:29 Ondansetron HCl (Zofran Inj) 4 mg IVP Q8 PRN PRN Reason: nausea and vomitting Last Admin: 03/02/18 11:32 Dose: 4 mg Sertraline HCl (Zoloft) 50 mg PO DAILY [facility] Last Admin: 03/03/18 10:16 Dose: 50 mg - Labs Labs: 03/03/18 06:26 03/03/18 06:26 PT 18.9 SECONDS (9.7-12.2) H 03/01/18 12:56 INR 1.7 03/01/18 12:56 APTT 34 SECONDS (21-34) 03/01/18 12:56
--- NOTE | 2018-03-03 11:46 | CP.PCM.PN ---
Subjective - Date & Time of Evaluation Date of Evaluation: 03/03/18 Time of Evaluation: 11:40 - Subjective Subjective: Patient's headaches better, afebrile Objective - Vital Signs/Intake and Output Vital Signs (last 24 hours): Temp Pulse Resp BP Pulse Ox 97.8 F 57 L 25 H 114/72 92 L 03/03/18 08:00 03/03/18 08:00 03/03/18 08:00 03/03/18 11:40 03/03/18 08:00 Intake and Output: 03/03/18 03/03/18 06:59 18:59 Intake Total 50 Output Total 1925 Balance -1875 - Medications Medications: Current Medications Acetaminophen (Tylenol 325mg Tab) 650 mg PO Q6 PRN PRN Reason: temp 101 and above Last Admin: 03/02/18 23:42 Dose: 650 mg Acetaminophen/Butalbital/Caffeine (Fioricet) 1 tab PO Q4 PRN PRN Reason: Headache Furosemide (Lasix) 40 mg IVP ONCE ONE Stop: 03/03/18 11:46 Last Admin: 03/03/18 11:40 Dose: 40 mg Heparin Sodium (Porcine) (Heparin) 5,000 units SC Q12 [facility] Last Admin: 03/03/18 10:17 Dose: Not Given Ceftriaxone Sodium 2 gm/ (Sodium Chloride) 100 mls @ 100 mls/hr IVPB Q24H [facility] PRN Reason: Protocol Last Admin: 03/03/18 10:16 Dose: 100 mls/hr Potassium Phosphate 15 mmole/ (Sodium Chloride) 255 mls @ 42.5 mls/hr IVPB ONCE ONE Stop: 03/03/18 14:59 Last Admin: 03/03/18 10:16 Dose: 42.5 mls/hr Potassium Phosphate 15 mmole/ (Sodium Chloride) 255 mls @ 42.5 mls/hr IVPB ONCE ONE Stop: 03/03/18 21:29 Ondansetron HCl (Zofran Inj) 4 mg IVP Q8 PRN PRN Reason: nausea and vomitting Last Admin: 03/02/18 11:32 Dose: 4 mg Sertraline HCl (Zoloft) 50 mg PO DAILY [facility] Last Admin: 03/03/18 10:16 Dose: 50 mg - Labs Labs: 03/03/18 06:26 03/03/18 06:26 PT 18.9 SECONDS (9.7-12.2) H 03/01/18 12:56 INR 1.7 03/01/18 12:56 APTT 34 SECONDS (21-34) 03/01/18 12:56 - Head Exam Head Exam: ATRAUMATIC, NORMAL INSPECTION, NORMOCEPHALIC - Eye Exam Eye Exam: EOMI Pupil Exam: NORMAL ACCOMODATION Assessment and Plan - Assessment and Plan (Free Text) Assessment: 27 F with PMHx of nephrolithiasis, brain surgery for congenital cysts/ malformation presents with recurrent left kidney stone, 3mm, c/b gram negative sepsis. S/p cystoscopy and stent placement POD2 Neuro: - Alert and oriented x 3 - pain controled Pulm: Hypoxic respiratory failure - Maintain SPO2 > 92% - Encourage Incentive spirometry GI: - Advance diet as tolerated Right arm swelling: obtain Vascular r/o DVT -h/o migraines: PRN fiorecet/sumatriptan, neurology input Renal: - CT abdomen today shows mild L sided hydro, distal L uretal calculus not definitely seen - Urology consulted for recs - s/p cysto and stent placement - must follow up as an outpatient for stent removal - monitor I and O - Replete electrolytes as needed Endo: - maintain euglycemic ID: Complex UTI, complete CTX (total abx days 14 days), can switch to oral as tolerated DVT proph - heparin sq Code status - full code
--- NOTE | 2018-03-03 12:37 | RAD ---
Date of service: 03/03/2018 HISTORY: eval fluid overloaded COMPARISON: 03/02/2018. FINDINGS: The right PICC line terminates in the SVC. LUNGS: There is interval improved aeration in the right lung. There is persistent airspace disease in the left lower lobe. Again seen is moderate pulmonary venous congestion with redistribution. PLEURA: No change in bilateral pleural effusions, no pneumothorax apparent. CARDIOVASCULAR: Normal. OSSEOUS STRUCTURES: No significant abnormalities. VISUALIZED UPPER ABDOMEN: Normal. OTHER FINDINGS: None. IMPRESSION: Interval improved aeration in the right lower lobe. Persistent presumable pulmonary edema in the left lung. Persistent pulmonary venous congestion with redistribution.
--- NOTE | 2018-03-03 12:38 | CP.PCM.PN ---
Subjective - Date & Time of Evaluation Date of Evaluation: 03/03/18 Time of Evaluation: 12:36 - Subjective Subjective: pt is seen and examined, follow up consult is dictated #[id number] will give lasix 40 mg ivp x1, repeat bmp, po4, mg at 3 pm pt is feeling better , less sob, preferred to use venti mask rather nasal canula Objective - Vital Signs/Intake and Output Vital Signs (last 24 hours): Temp Pulse Resp BP Pulse Ox 97.8 F 64 30 H 114/72 99 03/03/18 08:00 03/03/18 12:00 03/03/18 12:00 03/03/18 11:40 03/03/18 12:00 Intake and Output: 03/03/18 03/03/18 06:59 18:59 Intake Total 50 Output Total 1925 Balance -1875 - Medications Medications: Current Medications Acetaminophen (Tylenol 325mg Tab) 650 mg PO Q6 PRN PRN Reason: temp 101 and above Last Admin: 03/02/18 23:42 Dose: 650 mg Acetaminophen/Butalbital/Caffeine (Fioricet) 1 tab PO Q4 PRN PRN Reason: Headache Heparin Sodium (Porcine) (Heparin) 5,000 units SC Q12 [facility] Last Admin: 03/03/18 10:17 Dose: Not Given Ceftriaxone Sodium 2 gm/ (Sodium Chloride) 100 mls @ 100 mls/hr IVPB Q24H [facility] PRN Reason: Protocol Last Admin: 03/03/18 10:16 Dose: 100 mls/hr Potassium Phosphate 15 mmole/ (Sodium Chloride) 255 mls @ 63 mls/hr IV ONCE ONE Stop: 03/03/18 20:02 Ondansetron HCl (Zofran Inj) 4 mg IVP Q8 PRN PRN Reason: nausea and vomitting Last Admin: 03/02/18 11:32 Dose: 4 mg Sertraline HCl (Zoloft) 50 mg PO DAILY [facility] Last Admin: 03/03/18 10:16 Dose: 50 mg - Labs Labs: 03/03/18 06:26 03/03/18 06:26 PT 18.9 SECONDS (9.7-12.2) H 03/01/18 12:56 INR 1.7 03/01/18 12:56 APTT 34 SECONDS (21-34) 03/01/18 12:56
[2018-03-03] MEDS: Apap-Butalbital-Caffeine 325-50-40mg Tab PO PRN ×2 (12:55→18:44)
[2018-03-03] MEDS ORDERED: Valproate 500 MG in Sodium Chloride 0.9% 100 ML IVPB ONE ×3 (15:15→17:00)
[2018-03-03] MEDS ORDERED: Potassium Phosphate 15 MMOLE in Sodium Chloride 0.9% 250 ML IV ONE (16:00)
[2018-03-03 16:14] LABS: BLOOD UREA NITROGEN 18 mg/dL (7-17); CALCIUM 8.2 mg/dl (8.6-10.4); GFR NON-AFRICAN AMERICAN > 60
--- NOTE | 2018-03-03 17:17 | PN ---
DATE: 03/03/2018 SUBJECTIVE: The patient was seen and examined at bedside. The patient is feeling much better than yesterday, but still complaining of not able to take deep breathing, events from this morning noted. She had headaches with aura and flashes for which she got one dose of Fioricet, which improved with persistent symptoms, received one dose of sumatriptan given by Neurology. When I examined, she is not having severe headache, feeling much better, but complaining of right upper extremity swelling. Denies any other symptoms. PHYSICAL EXAMINATION: GENERAL: Young female, lying in bed, in no acute distress. VITAL SIGNS: Blood pressure 114/72, pulse 62, respirations 25, temperature 97.8 degrees Fahrenheit, T-max is 98.6. O2 saturations 92% on Ventimask. Intake is 630 mL, output is 3725 with negative balance of 3 liters. HEENT: Pupils equal, round, and reacting to light and accommodation. Extraocular muscles intact. No icterus. No pallor. No oral thrush. No pharyngeal congestion. NECK: Supple. No JVD. LUNGS: Bilateral vesicular breath sounds. No wheezing or basilar crackles heard. CARDIOVASCULAR SYSTEM: S1 and S2 present, regular. ABDOMEN: Soft, and nontender. Minimal tenderness in the left renal angle region. No guarding. No rigidity. No rebound tenderness noted. EASTER BUNNY: Alert, awake, and oriented x3. No focal deficits noted. EXTREMITIES: No edema. Palpable peripheral pulses. Right upper extremity pitting edema noted. MEDICATIONS: Tylenol 650 mg p.o. every 6 hours as needed, Fioricet one tab p.o. every 4 hours p.r.n., Rocephin 2 g IV daily, heparin subcu 5000 units every 12 hours, Zofran 4 mg IV push every 8 hours as needed, K-Phos 15 mmol one dose, Zoloft 50 mg p.o. daily. LABORATORY DATA: From this morning, WBC 15.2, hemoglobin 9.4, hematocrit 28.2, platelets 114, bands 22. D-dimer 1739. Sodium 139, potassium 3.3, chloride 106, bicarbonate 27, BUN 19, creatinine 0.7, glucose 95, calcium 8.1, phosphorus 1.5, magnesium 2.1, AST 12, ALT 27, alkaline phosphatase 82, total protein 4.9, albumin 2.5. Urine drug screen positive for opiates, barbiturates, and benzodiazepines. Repeat blood cultures negative so far. Admission blood cultures and urine cultures positive for E. coli. Lower extremity Doppler and right upper extremity Doppler, preliminary report negative for any DVT. Chest x-ray consistent with bilateral minimal pleural effusion and congestive changes. Head CT is negative. ASSESSMENT AND PLAN: A young female with history of Chiari malformation, status post surgery, history of renal stones, admitted for left renal colic with left ureteral stone, Gram-negative sepsis with Escherichia coli, pansensitive to all antibiotics, status post cystoscopy and left ureteral stent placement. Multiple electrolyte imbalances, status post fluid resuscitation with bilateral pleural effusion and congestive heart failure with migraine headaches. Repeat blood cultures are negative. Continue with Rocephin 2 g daily as per Infectious Disease recommendation, had received sumatriptan one dose. We will continue with Fioricet as needed for headache. I will give one dose Lasix to diurese more, which may facilitate her breathing. Watch her respiratory status. Her renal function improved. I will continue with deep venous thrombosis and gastrointestinal prophylaxis. Intravenous fluids stopped. We will supplement potassium sulphate. We will do a V/Q scan for elevated D-dimer to rule out any pulseless electrical activity. Elevated D-dimer could be from sepsis. Repeat blood cultures are negative. Her platelet count is improving and banding is improving. We will repeat labs in a.m. Rajiv Krishna MD
--- NOTE | 2018-03-04 01:47 | PN ---
DATE: 03/03/2018 LOCATION: ICU 14B. REQUESTED BY: Dr. Rajiv Krishna. REASON FOR FOLLOWUP: Acute renal failure, gram-negative sepsis, hydronephrosis and nephrolithiasis. SUBJECTIVE: Mrs. Owens is a 27 years old young female with a past medical history significant for nephrolithiasis, anxiety, depression was admitted with sudden onset of left flank pain and left groin pain and found to have initially left hydronephrosis. Subsequently, the patient developed UTI and gram-negative sepsis, requiring transfer to ICU, code sepsis, status post left ureteral stent placement by Dr. Banks day before yesterday. The patient is feeling much better and less short of breath, less abdominal pain. No nausea, no vomiting, no diarrhea. Occasional headache. PHYSICAL EXAMINATION: VITAL SIGNS: This morning; blood pressure 114/72, pulse about 64, respiration 19, temperature 98, saturation 99%. Height 5 feet 7 inches and weight is 158 pounds. GENERAL: Mrs. Owens is a 27 years old young female, moderately built, moderately nourished, not in acute distress. HEENT: Pupils normal, react to light and accommodation. Conjunctivae pink. Sclerae anicteric. Tongue is moist and trachea is midline. LUNGS: Symmetric on both sides. Bilateral breath sounds present. No crackles. CVS: [place] at the fifth intercostal space, half inch mid to midclavicular line. S1 and S2 audible. No murmur or gallop. ABDOMEN: Normal in appearance, soft, tympanic. Mild left flank tenderness. No guarding, no rigidity DEICER INSPECTOR ELECTRIC: The patient is alert, awake, oriented x3. Nonfocal neuro examination. Cranial nerves II through XII grossly intact. Sensory and motor system is within normal limits. EXTREMITIES: No cyanosis, no clubbing. Trace edema in both lower extremities. CURRENT MEDICATIONS: Rocephin 1 gm every 24 hours, Fioricet 1 tablet p.o. every 4 hours p.r.n., Tylenol and Zofran 4 mg IV every 8 hours p.r.n., Zoloft 50 mg p.o. daily. LABORATORY DATA: As of 03/03/2018; WBC 15.2, hemoglobin 9.4, hematocrit is 28.2, platelets 114, neutrophils 70, bands 22, lymphs 3, monos 5, and platelets slightly decreased. Sodium 139, potassium 3.3, chloride 106, CO2 27, BUN 19, creatinine 0.7, glucose 95, calcium 8.1, phosphorus 1.5 magnesium 2.1, total bili 0.4, AST 12, ALT 27, alkaline phosphatase 82, total protein 4.9, albumin is 2.5. ASSESSMENT: In summary, Mrs. Owens is a 27 years old young female with a history of nephrolithiasis, history of passing a stone at age 19 and now admitted after 9 years with left flank pain, sudden onset and groin pain and also subsequently the patient developed fever, chills after admission to the hospital. Urine culture and blood culture next day morning for positive for gram-negative rods identified as Escherichia coli sensitive to all antibiotic and increased BUN and creatinine and fluid overload. 1. Gram-negative sepsis secondary to Escherichia coli secondary to urinary tract infection, most likely source is urine. 2. Status post left hydronephrosis secondary to obstructive uropathy secondary to possible ureteric stone. 3. Fluid overload. 4. Hypokalemia, hypophosphatemia, most likely secondary to decreased p.o. intake since admission. PLAN: Continue KCL p.o. supplement and also agree with the K-Phos supplement as phosphorus and potassium. We will give Lasix 40 mg IV push x1 more dose today and repeat BMP this evening and also in a.m., magnesium, phosphorus and BMP. Continue antibiotics Rocephin as per ID recommendations. Thank you for allowing me to participate in your patient's care. Cheyenne Krishna MD
[2018-03-04 06:32] VITALS: RESP 20
[2018-03-04 06:33] LABS: BASO % 0.2 % (0.0-2.0); EOS # 0.2 K/uL (0.0-0.7); HEMOGLOBIN 9.8 g/dL (11.0-16.0); LYMPH % 8.3 % (20.0-40.0); MEAN CELL VOLUME 90.1 fL (81.0-99.0); MEAN CORPUSCULAR HGB CONC 33.3 g/dL (33.0-37.0); MEAN PLATELET VOLUME 8.1 fL (7.2-11.7); MONO # 1.5 K/uL (0.0-0.8); MONO % 13.1 % (0.0-10.0); NEUT # 8.7 K/uL (1.8-7.0); NEUT % 76.4 % (50.0-75.0); PLATELET COUNT 126 K/uL (130-400); RBC 3.28 Mil/uL (3.80-5.20); RED CELL DISTRIBUTION WIDTH 13.7 % (11.5-14.5); WHITE BLOOD COUNT 11.5 K/uL (4.8-10.8)
[2018-03-04 06:56] LABS: ALBUMIN 2.6 g/dL (3.5-5.0); ALT/SGPT 32 U/L (9-52); AST/SGOT 12 U/L (14-36); BLOOD UREA NITROGEN 14 mg/dL (7-17); GFR NON-AFRICAN AMERICAN > 60
[2018-03-04 08:49] LABS: BANDS 8 % (0-2); EOSINOPHIL 1 % (0-4); LYMPHOCYTE 7 % (20-40); MONOCYTE 12 % (0-10); NEUTROPHIL 72 % (50-75); PLATELET ESTIMATE SLIGHTLY DECREASED (NORMAL); TOTAL CELLS COUNTED 100
[2018-03-04 08:50] LABS: ANISOCYTOSIS SLIGHT; TOXIC GRANULATION PRESENT
[2018-03-04 08:51] LABS: HYPOCHROMIC SLIGHT; LARGE PLATELETS PRESENT; POLYCHROMIC SLIGHT
[2018-03-04] MEDS: Apap-Butalbital-Caffeine 325-50-40mg Tab PO PRN ×2 (08:55→19:18)
[2018-03-04] MEDS: cefTRIAXone 2 GM in Sodium Chloride 0.9% 100 ML IVPB SCH (10:35)
--- NOTE | 2018-03-04 13:03 | CP.PCM.PN ---
Subjective - Date & Time of Evaluation Date of Evaluation: 03/04/18 Time of Evaluation: 13:03 - Subjective Subjective: pPT APPEARS MUCH BETTER WBC AND TEMP DOWN,OOB WALKING TO BATHRROM HEADACHE IMPROVED. a RESOLVING UROSEPSIS,URETERAL OBSTRUCTION STATUS POST STENT. PLAN NO FURTHER gu INTERVENTION AT THIS TIME. MELITON Objective - Vital Signs/Intake and Output Vital Signs (last 24 hours): Temp Pulse Resp BP Pulse Ox 98.7 F 65 20 122/77 96 03/04/18 08:29 03/04/18 08:29 03/04/18 08:29 03/04/18 08:29 03/04/18 08:29 Intake and Output: 03/04/18 03/04/18 06:59 18:59 Intake Total 50 Output Total 500 Balance -450 - Medications Medications: Current Medications Acetaminophen (Tylenol 325mg Tab) 650 mg PO Q6 PRN PRN Reason: temp 101 and above Last Admin: 03/02/18 23:42 Dose: 650 mg Acetaminophen/Butalbital/Caffeine (Fioricet) 1 tab PO Q4 PRN PRN Reason: Headache Last Admin: 03/04/18 08:55 Dose: 1 tab Ceftriaxone Sodium 2 gm/ (Sodium Chloride) 100 mls @ 100 mls/hr IVPB Q24H [facility] PRN Reason: Protocol Last Admin: 03/04/18 10:35 Dose: 100 mls/hr Ondansetron HCl (Zofran Inj) 4 mg IVP Q8 PRN PRN Reason: nausea and vomitting Last Admin: 03/04/18 09:24 Dose: 4 mg Sertraline HCl (Zoloft) 50 mg PO DAILY [facility] Last Admin: 03/04/18 11:00 Dose: 50 mg - Labs Labs: 03/04/18 06:27 03/04/18 06:27 PT 18.9 SECONDS (9.7-12.2) H 03/01/18 12:56 INR 1.7 03/01/18 12:56 APTT 34 SECONDS (21-34) 03/01/18 12:56
[2018-03-04] MEDS ORDERED: Magnesium Sulfate 1 gm in D5W 1 GM/100 ML BAG IVPB ONE (13:19)
--- NOTE | 2018-03-04 13:21 | CP.PCM.PN ---
Subjective - Date & Time of Evaluation Date of Evaluation: 03/04/18 Time of Evaluation: 13:21 - Subjective Subjective: Progress note dictated #[id number] Objective - Vital Signs/Intake and Output Vital Signs (last 24 hours): Temp Pulse Resp BP Pulse Ox 98.7 F 65 20 122/77 96 03/04/18 08:29 03/04/18 08:29 03/04/18 08:29 03/04/18 08:29 03/04/18 08:29 Intake and Output: 03/04/18 03/04/18 06:59 18:59 Intake Total 50 Output Total 500 Balance -450 - Medications Medications: Current Medications Acetaminophen (Tylenol 325mg Tab) 650 mg PO Q6 PRN PRN Reason: temp 101 and above Last Admin: 03/02/18 23:42 Dose: 650 mg Acetaminophen/Butalbital/Caffeine (Fioricet) 1 tab PO Q4 PRN PRN Reason: Headache Last Admin: 03/04/18 08:55 Dose: 1 tab Ceftriaxone Sodium 2 gm/ (Sodium Chloride) 100 mls @ 100 mls/hr IVPB Q24H [facility] PRN Reason: Protocol Last Admin: 03/04/18 10:35 Dose: 100 mls/hr Ondansetron HCl (Zofran Inj) 4 mg IVP Q8 PRN PRN Reason: nausea and vomitting Last Admin: 03/04/18 09:24 Dose: 4 mg Sertraline HCl (Zoloft) 50 mg PO DAILY [facility] Last Admin: 03/04/18 11:00 Dose: 50 mg - Labs Labs: 03/04/18 06:27 03/04/18 06:27 PT 18.9 SECONDS (9.7-12.2) H 03/01/18 12:56 INR 1.7 03/01/18 12:56 APTT 34 SECONDS (21-34) 03/01/18 12:56
[2018-03-04] MEDS: Potassium Chloride 20 mEq ER Tab PO SCH ×2 (13:45→16:55)
[2018-03-04] MEDS: Potassium & Sodium Phosphate PO SCH ×2 (13:45→16:55)
--- NOTE | 2018-03-04 14:42 | RAD ---
Date of service: 03/04/2018 HISTORY: chf follow up COMPARISON: 03/03/2018 FINDINGS: The right PICC line terminates at the cavoatrial junction. LUNGS: There is interval worsening pulmonary venous congestion with redistribution and presumable perihilar pulmonary edema. PLEURA: No change in moderate pleural effusions, no pneumothorax apparent. CARDIOVASCULAR: Normal. OSSEOUS STRUCTURES: No significant abnormalities. VISUALIZED UPPER ABDOMEN: Normal. OTHER FINDINGS: None. IMPRESSION: Worsening congestive heart failure.
--- NOTE | 2018-03-04 15:41 | CP.PCM.PN ---
Subjective - Date & Time of Evaluation Date of Evaluation: 03/04/18 Time of Evaluation: 15:41 - Subjective Subjective: pt is seen and examined, follow up consult is dictated #[id number] Objective - Vital Signs/Intake and Output Vital Signs (last 24 hours): Temp Pulse Resp BP Pulse Ox 98.7 F 65 20 122/77 96 03/04/18 08:29 03/04/18 08:29 03/04/18 08:29 03/04/18 08:29 03/04/18 08:29 Intake and Output: 03/04/18 03/04/18 06:59 18:59 Intake Total 50 Output Total 500 Balance -450 - Medications Medications: Current Medications Acetaminophen (Tylenol 325mg Tab) 650 mg PO Q6 PRN PRN Reason: temp 101 and above Last Admin: 03/02/18 23:42 Dose: 650 mg Acetaminophen/Butalbital/Caffeine (Fioricet) 1 tab PO Q4 PRN PRN Reason: Headache Last Admin: 03/04/18 08:55 Dose: 1 tab Ceftriaxone Sodium 2 gm/ (Sodium Chloride) 100 mls @ 100 mls/hr IVPB Q24H BETHANY PRN Reason: Protocol Last Admin: 03/04/18 10:35 Dose: 100 mls/hr Ondansetron HCl (Zofran Inj) 4 mg IVP Q8 PRN PRN Reason: nausea and vomitting Last Admin: 03/04/18 09:24 Dose: 4 mg Potassium Chloride (K-Dur 20 Meq Er Tab) 40 meq PO Q4H BETHANY Stop: 03/04/18 17:31 Last Admin: 03/04/18 13:45 Dose: 40 meq Potassium Phos/Sodium Phos (Neutra-Phos) 1 pkt PO TIDCC BETHANY Last Admin: 03/04/18 13:45 Dose: 1 pkt Potassium Phos/Sodium Phos (Neutra-Phos) 1 pkt PO HS BETHANY Sertraline HCl (Zoloft) 50 mg PO DAILY [facility] Last Admin: 03/04/18 11:00 Dose: 50 mg - Labs Labs: 03/04/18 06:27 03/04/18 06:27 PT 18.9 SECONDS (9.7-12.2) H 03/01/18 12:56 INR 1.7 03/01/18 12:56 APTT 34 SECONDS (21-34) 03/01/18 12:56
--- NOTE | 2018-03-04 16:35 | CP.PCM.PN ---
Subjective - Date & Time of Evaluation Date of Evaluation: 03/04/18 Time of Evaluation: 08:00 - Subjective Subjective: no fever on rocephin 'pain is less Objective - Vital Signs/Intake and Output Vital Signs (last 24 hours): Temp Pulse Resp BP Pulse Ox 98.8 F 67 20 111/70 95 03/04/18 15:00 03/04/18 15:00 03/04/18 15:00 03/04/18 15:00 03/04/18 15:00 Intake and Output: 03/04/18 03/04/18 06:59 18:59 Intake Total 50 560 Output Total 500 Balance -450 560 - Medications Medications: Current Medications Acetaminophen (Tylenol 325mg Tab) 650 mg PO Q6 PRN PRN Reason: temp 101 and above Last Admin: 03/02/18 23:42 Dose: 650 mg Acetaminophen/Butalbital/Caffeine (Fioricet) 1 tab PO Q4 PRN PRN Reason: Headache Last Admin: 03/04/18 08:55 Dose: 1 tab Ceftriaxone Sodium 2 gm/ (Sodium Chloride) 100 mls @ 100 mls/hr IVPB Q24H BETHANY PRN Reason: Protocol Last Admin: 03/04/18 10:35 Dose: 100 mls/hr Ondansetron HCl (Zofran Inj) 4 mg IVP Q8 PRN PRN Reason: nausea and vomitting Last Admin: 03/04/18 09:24 Dose: 4 mg Potassium Chloride (K-Dur 20 Meq Er Tab) 40 meq PO Q4H BETHANY Stop: 03/04/18 17:31 Last Admin: 03/04/18 13:45 Dose: 40 meq Potassium Phos/Sodium Phos (Neutra-Phos) 1 pkt PO TIDCC BETHANY Last Admin: 03/04/18 13:45 Dose: 1 pkt Potassium Phos/Sodium Phos (Neutra-Phos) 1 pkt PO HS BETHANY Sertraline HCl (Zoloft) 50 mg PO DAILY [facility] Last Admin: 03/04/18 11:00 Dose: 50 mg - Labs Labs: 03/04/18 06:27 03/04/18 06:27 PT 18.9 SECONDS (9.7-12.2) H 03/01/18 12:56 INR 1.7 03/01/18 12:56 APTT 34 SECONDS (21-34) 03/01/18 12:56 - Constitutional Appears: Non-toxic, Chronically Ill - Head Exam Head Exam: NORMOCEPHALIC - Eye Exam Eye Exam: absent: Scleral icterus - ENT Exam ENT Exam: Mucous Membranes Dry - Neck Exam Neck Exam: absent: Lymphadenopathy - Respiratory Exam Respiratory Exam: Decreased Breath Sounds - Cardiovascular Exam Cardiovascular Exam: REGULAR RHYTHM - GI/Abdominal Exam GI & Abdominal Exam: Distended, Soft Assessment and Plan (1) Nephrolithiasis Status: Acute (2) Gram negative sepsis Status: Acute (3) UTI (urinary tract infection) Status: Acute - Assessment and Plan (Free Text) Assessment: cont iv rocephin then PO keflex for 14 days
--- NOTE | 2018-03-04 20:08 | PN ---
DATE: 03/04/2018 SUBJECTIVE: The patient is seen and examined at bedside. The patient is feeling better. She is transferred to regular floor. Denies headaches at the present time. She took one Fioricet this morning. Denies any nausea or vomiting, tolerating p.o. foods, has been urinating since she got Lasix yesterday. Denies any urinary complaints, less abdominal pain. All other systems reviewed and were found to be negative. PHYSICAL EXAMINATION: GENERAL: A young female, lying in bed, in no acute distress. VITAL SIGNS: Blood pressure 122/77, pulse 65, respirations 20, temperature 98.7 degrees Fahrenheit, and O2 saturations 96% on room air. HEENT: Pupils equal, round, and reacting to light and accommodation. Extraocular muscles are intact. No icterus, no pallor, no oral thrush, and no pharyngeal congestion. NECK: Supple, no JVD. LUNGS: Bilateral vesicular breath sounds. No wheezing, no rhonchi. CVS: S1 and S2 present, regular. ABDOMEN: Soft and nontender. Bowel sounds present. No guarding, no rigidity, and no rebound tenderness noted. CENTRAL NERVOUS SYSTEM: Alert, awake and oriented x3. No focal deficits noted. EXTREMITIES: No edema. Palpable peripheral pulses. MEDICATIONS: Include Tylenol as needed, Fioricet 1 tab p.o. every 4 hours p.r.n., Rocephin 2 gm IV daily, Zofran 4 mg IV push every 8 hours p.r.n., K-Dur 40 mEq p.o. every 4 hours 2 doses, Neutra-Phos 1 pack p.o. t.i.d., and Zoloft 50 mg p.o. daily. LABORATORY DATA: Labs done from this morning; WBC 11.5, hemoglobin 9.8, hematocrit 29.5, platelets 126, bands 8, sodium 138, potassium 3.4, chloride 101, bicarbonate 32, BUN 14, creatinine 0.5, glucose 92, calcium 8, phosphorus 2, magnesium 1.5, total bilirubin 0.5, AST 12, ALT 32, alkaline phosphatase 80, total protein 5.3, albumin 2.6. Blood cultures x2 negative. ASSESSMENT AND PLAN: A young female with history of Chiari malformation with migraine headaches, history of renal stones, admitted for left renal colic, gram-negative sepsis, multiple electrolyte abnormalities, status post fluid overload, diuresed about 5 liters in 2 days, and improving respiration. Headache is better with Fioricet. Continue with current antibiotics. Urology input appreciated. We will continue with DVT and GI prophylaxis. We will repeat chest x-ray. Continue with PT/OT. Rajiv Krishna MD
--- NOTE | 2018-03-04 21:03 | CP.PCM.CON ---
History of Present Illness - History of Present Illness History of Present Illness: CONSULT DICTATED CHRONIC MIGRAINE TRIGGERED BY METABOLIC STRESS JOLYNN CHIARI TYPE I - POST CRANIECTOMY - STABLE - NOT RELATED TO HYDRATION /IMITREX /NSAID PRN DEPACOTE CAN BE D/VIKRAM DUE TO THE POTENTIAL SIDE EFFECTS. FOLLOW UP AN OP Past Patient History - Past Medical History & Family History Past Medical History?: Yes - Past Social History Smoking Status: Never Smoked - CARDIAC Hx Cardiac Disorders: No - PULMONARY Hx Respiratory Disorders: No - NEUROLOGICAL Other/Comment: Brain malformation surgery x2 yrs ago - HEENT Hx HEENT Problems: No - RENAL Hx Chronic Kidney Disease: No - ENDOCRINE/METABOLIC Hx Endocrine Disorders: No - HEMATOLOGICAL/ONCOLOGICAL Hx Blood Disorders: No - INTEGUMENTARY Hx Dermatological Problems: No - MUSCULOSKELETAL/RHEUMATOLOGICAL Hx Falls: No - GASTROINTESTINAL Hx Gastrointestinal Disorders: No - GENITOURINARY/GYNECOLOGICAL Hx Genitourinary Disorders: No - PSYCHIATRIC Hx Substance Use: No - SURGICAL HISTORY Other/Comment: Right shoulder surgery 2007, wishdom tooth extraction 2006 - ANESTHESIA Hx Anesthesia: No Meds Allergies/Adverse Reactions: Allergies Allergy/AdvReac Type Severity Reaction Status Date / Time No Known Allergies Allergy Unverified 02/27/18 16:47 - Medications Medications: Current Medications Acetaminophen (Tylenol 325mg Tab) 650 mg PO Q6 PRN PRN Reason: temp 101 and above Last Admin: 03/02/18 23:42 Dose: 650 mg Acetaminophen/Butalbital/Caffeine (Fioricet) 1 tab PO Q4 PRN PRN Reason: Headache Last Admin: 03/04/18 19:18 Dose: 1 tab Ceftriaxone Sodium 2 gm/ (Sodium Chloride) 100 mls @ 100 mls/hr IVPB Q24H BETHANY PRN Reason: Protocol Last Admin: 03/04/18 10:35 Dose: 100 mls/hr Ondansetron HCl (Zofran Inj) 4 mg IVP Q8 PRN PRN Reason: nausea and vomitting Last Admin: 03/04/18 19:44 Dose: 4 mg Potassium Phos/Sodium Phos (Neutra-Phos) 1 pkt PO TIDCC BETHANY Last Admin: 03/04/18 16:55 Dose: 1 pkt Potassium Phos/Sodium Phos (Neutra-Phos) 1 pkt PO HS BETHANY Sertraline HCl (Zoloft) 50 mg PO DAILY [facility]ANY Last Admin: 03/04/18 11:00 Dose: 50 mg Results - Vital Signs Recent Vital Signs: Last Vital Signs Temp 98.8 F 03/04/18 15:00 Pulse 67 03/04/18 15:00 Resp 20 03/04/18 15:00 BP 111/70 03/04/18 15:00 Pulse Ox 95 03/04/18 15:00 - Labs Result Diagrams: 03/04/18 06:27 03/04/18 06:27 Labs: Laboratory Results - last 24 hr 03/04/18 03/04/18 06:27 06:27 WBC 11.5 H RBC 3.28 L Hgb 9.8 L Hct 29.5 L MCV 90.1 MCH 30.0 MCHC 33.3 RDW 13.7 Plt Count 126 L MPV 8.1 Neut % (Auto) 76.4 H Lymph % (Auto) 8.3 L Twiggs % (Auto) 13.1 H Eos % (Auto) 2.0 Baso % (Auto) 0.2 Neut # (Auto) 8.7 H Lymph # (Auto) 1.0 Twiggs # (Auto) 1.5 H Eos # (Auto) 0.2 Baso # (Auto) 0.0 Neutrophils % (Manual) 72 Band Neutrophils % 8 H Lymphocytes % (Manual) 7 L Monocytes % (Manual) 12 H Eosinophils % (Manual) 1 Toxic Granulation Present Platelet Estimate Slightly decreased L Large Platelets Present Polychromasia Slight Hypochromasia (manual) Slight Anisocytosis (manual) Slight Sodium 138 Potassium 3.4 L Chloride 101 Carbon Dioxide 32 H Anion Gap 9 L BUN 14 Creatinine 0.5 L Est GFR ( Amer) > 60 Est GFR (Non-Af Amer) > 60 Random Glucose 92 Calcium 8.0 L Phosphorus 2.0 L Magnesium 1.5 L Total Bilirubin 0.5 AST 12 L ALT 32 Alkaline Phosphatase 80 Total Protein 5.3 L Albumin 2.6 L Globulin 2.7 Albumin/Globulin Ratio 1.0
[2018-03-04] MEDS ORDERED: Potassium & Sodium Phosphate PO SCH (22:00)
--- NOTE | 2018-03-05 00:33 | CON ---
DATE: 03/04/2018 REASON FOR CONSULTATION: Headache. CHIEF COMPLAINT: The patient was admitted with flank pain, been worked up found out renal calculi and did go stent placement in the ureter with complication of E. coli sepsis. The patient did develop intense headache and from neurological point of view, I was called into evaluate her for further management. HISTORY OF PRESENTING ILLNESS: Ms. Chikis Owens is a 27-year-old right-handed female, usual state of health, being admitted with flank pain, undergone stent placement with complication of E. coli been on medication. Developed headache intense headache which was about 9 to 10/10 intense headache. This headache associated with some nausea, not vomiting. The patient felt better with eyes and shutting of lights off. Because of the headache and also with a history of Arnold-Chiari malformation in the past, I was called in to evaluate her. She used to have a headache usually with migraine type and she takes Aleve and the headache gets better. She used to follow some neurologist in the city, recently he moved to [place] and she stopped seeing him for now. She is not on any prophylactic medication or abortive medication. The patient was given Sumatriptan yesterday morning with significant relief. The patient also found to have significant dehydration and being hydrated well. At present she claims of 4/10 headache and also she did have Fioricet more than 10 hours ago. PAST MEDICAL HISTORY: Arnold-Chiari malformation surgery done 4 to 5 years ago. Renal calculi. Migraine headache, depression. PERSONAL HISTORY: Denies smoking or alcohol use. ALLERGIES: NO KNOWN ALLERGIES. MEDICATIONS: At present Ceftriaxone IV, Fioricet p.r.n. Zofran and Zoloft. REVIEW OF SYSTEMS: A 12-point system being reviewed from neuro, headache. PHYSICAL EXAMINATION: VITAL SIGNS: Blood pressure 122/77, mean artery pressure of 92, respiratory rate 18, temperature afebrile. NECK: Supple. No meningismus. Carotids are clear. No bruits. HEART: Sounds regular. CHEST: Fair air entry. EXTREMITIES: No edema in legs. NEUROLOGIC: Mental status examination, she is awake, alert and oriented to person, place and time. Speech is clear. Naming, repetition, fluency, comprehension all within normal. Cranial nerve examination, visual field intact. Pupils reactive to light. Extraocular movements normal. No nystagmus. No facial or sensory deficit. No facial asymmetry. Hearing is normal. Tongue is midline. Good gag. Motor examination, on outstretched hand with eyes closed, no drift noted. Power is symmetric on either side. Deep tendon reflexes biceps, brachialis, triceps 2+ on either side. Both knee and ankle are 2+. Plantars are downgoing. Sensory examination grossly intact. Coordination, [id number] test is intact. Gait deferred at this time. WORKUP: CT of the head reviewed, no intraparenchymal process of acute or chronic process. Postsurgical changes seen at the foramen magnum. WBC 11.5, hemoglobin 9.8 hematocrit date 29.5, platelet 126, bands are 4, which was down from 22. D-dimer 1739. Sodium 138, potassium 3.8, chloride 101, bicarbonate 32, BUN 14, creatinine 0.5, GFR more than 60. CONCLUSION: Ms. Chikis Stephensath been presenting with headache which probably provoked by underlying metabolic problem and dehydration. The patient got improved with Imitrex and hydration. From neurological point of view, no further workup is needed. RECOMMENDATIONS: Hydration, getting nonsteroidal antiinflammatory drug if it is needed she can have her Fioricet. Depakote for her age as well as significant side effect it is not great drug for her to be continued. When medically stable, that dose should be discontinued no need that further Depakote should be given. The patient should be followed by neurologist. She may need abortive as well as prophylactic treatment for her existing migraine. In meantime, I encourage her p.o. fluids as well. The patient's condition being discussed with her as well as her father in great detail. Mina Waston MD
[2018-03-05] MEDS: Apap-Butalbital-Caffeine 325-50-40mg Tab PO PRN ×4 (01:44→22:41)
--- NOTE | 2018-03-05 02:25 | PN ---
DATE: 03/04/2018 LOCATION: Room 360, bed B. REQUESTED BY: Dr. Rajiv Krishna. REASON FOR FOLLOWUP: Hydronephrosis status post acute renal failure, electrolyte imbalance and nephrolithiasis and gram-negative sepsis. SUBJECTIVE: Mrs. Owens is a 27 years old young female with a history of nephrolithiasis diagnosed at age 19, depression, anxiety, was admitted with chief complaints of initially left flank pain and groin pain, followed by chills and rigors after admission to the hospital and found to have urine culture positive for gram-negative rods and blood culture gram negative rods identified as E-coli on IV antibiotic. Subsequently, the patient was transferred to ICU for code sepsis. The patient is feeling much better, less short of breath, still complains of feeling weak and tired and want to use nasal cannula oxygen, not in acute distress. No chest pain, no palpitation. PHYSICAL EXAMINATION: VITAL SIGNS: Blood pressure this afternoon 111/70, pulse 67, respirations 20, temperature 98.8, saturation 95%. Height 5 feet 7 inches, weight is 158 pounds. GENERAL: Mrs. Owens is a 27 years old young female, moderately built, moderately nourished, not in acute distress. HEENT: Pupils normal, react to light and accommodation. Conjunctivae pink. Sclerae anicteric. Tongue is moist and trachea is midline. LUNGS: Symmetric on both sides. Bilateral breath sounds present. No crackles. CVS: Union at the fifth intercostal space, half inch medial to midclavicular line. S1 and S2 audible. No murmur or gallop. ABDOMEN: Normal in appearance, soft, tympanic. No guarding, no rigidity. Mild left flank tenderness present. No guarding. No rigidity. 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 Nonfocal neuro examination. Cranial nerves II through XII grossly intact. Sensory and motor system is within normal limits. EXTREMITIES: No cyanosis, no clubbing, no edema. CURRENT MEDICATIONS: Rocephin 1 gm every 24 hours, Fioricet 1 tablet p.o. every 4 hours p.r.n. Neutra-Phos 1 packet p.o. t.i.d., Tylenol 650 mg p.o. every 6 hours p.r.n., Zofran 4 mg IV every 8 hours p.r.n., Zoloft 50 mg p.o. daily. LABORATORY DATA: Lab data include as follows; WBC 11.5, hemoglobin 9.8, hematocrit is 29.5 and platelets 126 and neutrophils 72, bands 8, lymphs 7, monos 12%. Sodium 138, potassium 3.4, chloride 101, CO2 32, BUN 14, creatinine 0.5, glucose 92, calcium 8, phosphorus 2 and magnesium 1.5. Total bili 0.5, AST 12, ALT 32, alkaline phos is 80, total protein 5.3, albumin is 2.6. Chest x-ray reported as worsening congestive heart failure as per . ASSESSMENT: In summary, Mrs. Owens is a 27 years old young female with a history of nephrolithiasis was admitted with left flank pain and found to have worsening renal function. Subsequently, urine culture and blood cultures was positive for gram-negative sepsis. 1. Status post acute renal failure most likely secondary to intravascular depletion and gram-negative sepsis. 2. Escherichia coli sepsis. 3. Status post hydronephrosis status post left ureter stent placement. 4. Hypokalemia, hypophosphatemia, hypomagnesemia. PLAN: Agree to supplement potassium and phosphorus and supplement magnesium as needed. Continue oxygen and continue followup x-ray. We will follow with you. Thank you for allowing me to participate in your patient's care. Cheyenne Krishna MD
--- NOTE | 2018-03-05 05:27 | CON ---
DATE: 02/27/2018 CHIEF COMPLAINT: Abdominal pain. HISTORY OF PRESENT ILLNESS: The patient presented to the emergency room with a history of abdominal pain and was evaluated by the emergency room physician. Evaluation by the ER physician included a CAT scan of the abdomen and pelvis, which showed a 3-mm upper ureteral calculus with [id number] hydronephrosis and hydroureter. The patient had no fever or white count. She was admitted primarily for pain control. She denies history of prior urinary calculi. 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 She is not exactly sure what they were. She says she has no residual after that surgery and is fine and has not had any problems with balance or weakness or tremor. She does complain of headaches. She says that she began having sudden pain on the day she came to the ER and prior to that, she had no problems. The patient has a history of brain surgery with no sequelae. RESPIRATORY: The patient has no respiratory complaints. GASTROINTESTINAL: The patient has no vomiting or nausea. GENITOURINARY: The patient is complaining of left flank pain, radiating to the groin. GYNECOLOGIC: The patient denies any history of [employer] HELPER problems. ORTHOPEDIC: Noncontributory. SOCIAL HISTORY: Noncontributory. PHYSICAL EXAMINATION: HEAD, EARS, EYES, NOSE AND THROAT: Within normal limits. NECK: Supple. There are no bruits, nodes, or masses. CHEST: Clear bilaterally. There are no rales or rhonchi. BREASTS: Not examined at the patient's request. ABDOMEN: Soft and nontender. There is no palpable CVA tenderness. Bladder is not distended. EXTREMITIES: Appear normal. NEUROLOGICAL EXAMINATION: Appears normal. GENITALIA: The patient declines vaginal examination. IMPRESSION AND PLAN: My impression is left upper ureteral calculi. I would suggest the patient should be started on Flomax. Provided with pain medication and intravenous fluids. We will follow the progress of the stone. We gave the option to the patient to be stented, but she wishes to wait to see if she can pass the stone spontaneously. Param Banks MD [facility] # [id number]
--- NOTE | 2018-03-05 05:40 | OP ---
PROCEDURE DATE: 03/01/2018 TIME: Approximately 3:30 p.m. PREOPERATIVE DIAGNOSES: Left hydronephrosis, left renal colic, and urosepsis. POSTOPERATIVE DIAGNOSES: Left hydronephrosis, left renal colic, and urosepsis. PROCEDURES: Cystoscopy and insertion of stent. SURGEON: Param Banks MD DESCRIPTION OF PROCEDURE: Procedure is as follows: Prior to the procedure, a detailed informed consent was obtained from the mother and the daughter. The nature of the procedure and its risks due to the fact the patient was in septic shock were discussed with the patient. Also discussed with , the driver education instructor. The patient signed the consent. This was also signed by the mother. They agreed to the risks of the procedure. They were aware that both the CAT scan and the KUB did not show a stone, but hydronephrosis is going to be suspected occult stone causing obstruction. Based on her clinical symptoms, the patient was brought into the room. She was draped and prepped in the usual manner. She was already on antibiotics. She was placed in lithotomy position and cystoscoped with a #21 Storz panendoscope. The left ureteral orifice was visualized. There appeared to be a calcification in the intramural tunnel. A guidewire was passed up the intramural tunnel and up to the kidney under fluoroscopic control. A 6-Japanese variable length stent was placed over it and deployed properly. The patient tolerated this very well. She was awakened and sent back to the ICU in good condition. The findings were conveyed to the mother. Param Banks MD
[2018-03-05] MEDS: Potassium & Sodium Phosphate PO SCH ×2 (08:45→12:39)
--- NOTE | 2018-03-05 09:23 | VASCLAB ---
Date of service: 03/03/2018 PROCEDURE: Right Upper Extremity Venous Duplex Exam HISTORY: r/o dvt Right arm swelling, PICC line PRIORS: None. TECHNIQUE: Right upper extremity, internal jugular, subclavian, axillary, brachial, ulnar, radial, basilic and upper cephalic veins were evaluated. Flow was assessed with color Doppler, compressibility, assessment of phasic flow and augmentation response. Report prepared by electroneurodiagnostic technologist. FINDINGS: RIGHT: 1. Internal Jugular: 1.1. Compressibility - Fully compressible: Thrombus - None : Flow - Phasic: Augmentation -Normal: Reflux - None. 2. Subclavian: 2.1. Compressibility - Fully compressible: Thrombus - None : Flow - Phasic: Augmentation -Normal: Reflux - None. 3. Axillary: 3.1. Compressibility - Fully compressible: Thrombus - None : Flow - Phasic: Augmentation -Normal: Reflux - None. 4. Brachial: 4.1. Compressibility - Fully compressible: Thrombus - None: Flow - Phasic: Augmentation -Normal: Reflux - None. 5. Ulnar: 5.1. Compressibility - Fully compressible: Thrombus - None: Flow - Phasic: Augmentation -Normal: Reflux - None. 6. Radial: 6.1. Compressibility - Fully compressible: Thrombus - None: Flow - Phasic: Augmentation - Normal: Reflux - None. 7. Cephalic: 7.1. Compressibility - Fully compressible: Thrombus - None: Flow - Phasic: Augmentation -Normal: Reflux - None. 8. Basilic: 8.1. Compressibility - Fully compressible: Thrombus - None: Flow - Phasic: Augmentation -Normal: Reflux - None. OTHER FINDINGS: Right: None. IMPRESSION: Right: No evidence of vein thrombosis of the right upper extremity with excellent venous flow. Normal valve function noted of the right side. Normal venous flow noted in the left internal jugular and left subclavian veins.
--- NOTE | 2018-03-05 09:24 | VASCLAB ---
Date of service: 03/03/2018 PROCEDURE: Lower Extremity Venous Duplex Exam. HISTORY: r/o dvt, Swelling PRIORS: None. TECHNIQUE: Bilateral common femoral, femoral, popliteal and posterior tibial, peroneal and great saphenous veins were evaluated. Flow was assessed with color Doppler, compressibility, assessment of phasic flow and augmentation response. Report prepared by Enmanuel Brown, RVT FINDINGS: RIGHT: 1. Common Femoral Vein: 1.1. Compressibility - Fully compressible: Thrombus - None : Flow - Phasic: Augmentation -Normal: Reflux - None. 2. Femoral Vein: 2.1. Compressibility - Fully compressible: Thrombus - None : Flow - Phasic: Augmentation -Normal: Reflux - None. 3. Popliteal Vein: 3.1. Compressibility - Fully compressible: Thrombus - None : Flow - Phasic: Augmentation -Normal: Reflux - None. 4. Posterior Tibial Vein: 4.1. Compressibility - Fully compressible: Thrombus - None: Flow - Phasic: Augmentation -Normal: Reflux - None. 5. Peroneal Vein: 5.1. Compressibility - Fully compressible: Thrombus - None: Flow - Phasic: Augmentation -Normal: Reflux - None. 6. Great Saphenous Vein: 6.1. Compressibility - Fully compressible: Thrombus - None: Flow - Phasic: Augmentation - Normal: Reflux - None. LEFT: 1. Common Femoral Vein: 1.1. Compressibility - Fully compressible: Thrombus - None: Flow - Phasic: Augmentation -Normal: Reflux - None. 2. Femoral Vein: 2.1. Compressibility - Fully compressible: Thrombus - None: Flow - Phasic: Augmentation -Normal: Reflux - None. 3. Popliteal Vein: 3.1. Compressibility - Fully compressible: Thrombus - None : Flow - Phasic: Augmentation -Normal: Reflux - None. 4. Posterior Tibial Vein: 4.1. Compressibility - Fully compressible: Thrombus - None: Flow - Phasic: Augmentation -Normal: Reflux - None. 5. Peroneal Vein: 5.1. Compressibility - Fully compressible: Thrombus - None: Flow - Phasic: Augmentation -Normal: Reflux - None. 6. Great Saphenous Vein: 6.1. Compressibility - Fully compressible: Thrombus - None: Flow - Phasic: Augmentation - Normal: Reflux - None. OTHER FINDINGS: Right: None significant. Left: None significant. IMPRESSION: Right: No evidence of deep or superficial vein thrombosis of the right lower extremity. Normal valve function noted of the right side. Left: No evidence of deep or superficial vein thrombosis of the left lower extremity. Normal valve function noted of the left side.
--- NOTE | 2018-03-05 09:35 | CP.PCM.PN ---
Subjective - Date & Time of Evaluation Date of Evaluation: 03/05/18 Time of Evaluation: 09:35 - Subjective Subjective: Progress note dictated #[id number] Objective - Vital Signs/Intake and Output Vital Signs (last 24 hours): Temp Pulse Resp BP Pulse Ox 98 F 65 20 117/77 95 03/05/18 08:25 03/05/18 08:25 03/05/18 08:25 03/05/18 08:25 03/05/18 08:25 Intake and Output: 03/05/18 03/05/18 06:59 18:59 Intake Total 300 Balance 300 - Medications Medications: Current Medications Acetaminophen (Tylenol 325mg Tab) 650 mg PO Q6 PRN PRN Reason: temp 101 and above Last Admin: 03/02/18 23:42 Dose: 650 mg Acetaminophen/Butalbital/Caffeine (Fioricet) 1 tab PO Q4 PRN PRN Reason: Headache Last Admin: 03/05/18 01:44 Dose: 1 tab Ceftriaxone Sodium 2 gm/ (Sodium Chloride) 100 mls @ 100 mls/hr IVPB Q24H [facility] PRN Reason: Protocol Last Admin: 03/04/18 10:35 Dose: 100 mls/hr Ondansetron HCl (Zofran Inj) 4 mg IVP Q8 PRN PRN Reason: nausea and vomitting Last Admin: 03/05/18 05:35 Dose: 4 mg Potassium Phos/Sodium Phos (Neutra-Phos) 1 pkt PO TIDCC [facility] Last Admin: 03/05/18 08:45 Dose: 1 pkt Potassium Phos/Sodium Phos (Neutra-Phos) 1 pkt PO HS [facility] Last Admin: 03/04/18 22:04 Dose: 1 pkt Sertraline HCl (Zoloft) 50 mg PO DAILY [facility] Last Admin: 03/04/18 11:00 Dose: 50 mg - Labs Labs: 03/04/18 06:27 03/04/18 06:27 PT 18.9 SECONDS (9.7-12.2) H 03/01/18 12:56 INR 1.7 03/01/18 12:56 APTT 34 SECONDS (21-34) 03/01/18 12:56
[2018-03-05] MEDS: cefTRIAXone 2 GM in Sodium Chloride 0.9% 100 ML IVPB SCH (09:59)
[2018-03-05 10:51] LABS: BASO % 0.2 % (0.0-2.0); EOS # 0.3 K/uL (0.0-0.7); EOS % 2.3 % (0.0-4.0); HEMOGLOBIN 10.5 g/dL (11.0-16.0); LYMPH # 1.2 K/uL (1.0-4.3); LYMPH % 9.9 % (20.0-40.0); MEAN CELL VOLUME 89.6 fL (81.0-99.0); MEAN CORPUSCULAR HEMOGLOBIN 30.3 pg (27.0-31.0); MEAN CORPUSCULAR HGB CONC 33.8 g/dL (33.0-37.0); MEAN PLATELET VOLUME 8.3 fL (7.2-11.7); MONO # 1.5 K/uL (0.0-0.8); MONO % 13.3 % (0.0-10.0); NEUT # 8.7 K/uL (1.8-7.0); NEUT % 74.3 % (50.0-75.0); PLATELET COUNT 152 K/uL (130-400); RBC 3.46 Mil/uL (3.80-5.20); RED CELL DISTRIBUTION WIDTH 13.8 % (11.5-14.5); WHITE BLOOD COUNT 11.6 K/uL (4.8-10.8)
[2018-03-05] MEDS ORDERED: Albuterol-Ipratrop 3 mg / 0.5 (3 ml) UD INH PRN (11:29)
[2018-03-05 11:33] LABS: ANISOCYTOSIS SLIGHT; BASOPHIL 1 % (0-2); EOSINOPHIL 2 % (0-4); HYPOCHROMIC SLIGHT; LYMPHOCYTE 5 % (20-40); MONOCYTE 13 % (0-10); NEUTROPHIL 79 % (50-75); PLATELET ESTIMATE NORMAL (NORMAL); POIKILOCYTOSIS SLIGHT; TOTAL CELLS COUNTED 100
[2018-03-05] MEDS ORDERED: Albuterol-Ipratrop 3 mg / 0.5 (3 ml) UD INH STA (11:33)
[2018-03-05 11:38] LABS: ALBUMIN 2.9 g/dL (3.5-5.0); ALT/SGPT 31 U/L (9-52); AST/SGOT 24 U/L (14-36); BLOOD UREA NITROGEN 11 mg/dL (7-17); CALCIUM 8.4 mg/dl (8.6-10.4); GFR NON-AFRICAN AMERICAN > 60
--- NOTE | 2018-03-05 11:39 | CP.PCM.PN ---
Subjective - Date & Time of Evaluation Date of Evaluation: 03/05/18 Time of Evaluation: 10:00 - Subjective Subjective: improving iv rx in progress Objective - Vital Signs/Intake and Output Vital Signs (last 24 hours): Temp Pulse Resp BP Pulse Ox 98 F 65 20 117/77 95 03/05/18 08:25 03/05/18 08:25 03/05/18 08:25 03/05/18 08:25 03/05/18 08:25 Intake and Output: 03/05/18 03/05/18 06:59 18:59 Intake Total 300 Balance 300 - Medications Medications: Current Medications Acetaminophen (Tylenol 325mg Tab) 650 mg PO Q6 PRN PRN Reason: temp 101 and above Last Admin: 03/02/18 23:42 Dose: 650 mg Acetaminophen/Butalbital/Caffeine (Fioricet) 1 tab PO Q4 PRN PRN Reason: Headache Last Admin: 03/05/18 10:21 Dose: 1 tab Albuterol/Ipratropium (Duoneb 3 Mg/0.5 Mg (3 Ml) Ud) 3 ml INH RQ6 PRN PRN Reason: Cough and congestion Ceftriaxone Sodium 2 gm/ (Sodium Chloride) 100 mls @ 100 mls/hr IVPB Q24H [facility] PRN Reason: Protocol Last Admin: 03/05/18 09:59 Dose: 100 mls/hr Ondansetron HCl (Zofran Inj) 4 mg IVP Q8 PRN PRN Reason: nausea and vomitting Last Admin: 03/05/18 05:35 Dose: 4 mg Potassium Phos/Sodium Phos (Neutra-Phos) 1 pkt PO TIDCC [facility] Last Admin: 03/05/18 08:45 Dose: 1 pkt Potassium Phos/Sodium Phos (Neutra-Phos) 1 pkt PO HS [facility] Last Admin: 03/04/18 22:04 Dose: 1 pkt Sertraline HCl (Zoloft) 50 mg PO DAILY [facility] Last Admin: 03/05/18 10:02 Dose: 50 mg - Labs Labs: 03/05/18 10:45 03/05/18 10:45 PT 18.9 SECONDS (9.7-12.2) H 03/01/18 12:56 INR 1.7 03/01/18 12:56 APTT 34 SECONDS (21-34) 03/01/18 12:56 - Constitutional Appears: Non-toxic, Chronically Ill - Head Exam Head Exam: NORMOCEPHALIC - Eye Exam Eye Exam: PERRL - ENT Exam ENT Exam: Mucous Membranes Dry - Neck Exam Neck Exam: absent: Lymphadenopathy - Respiratory Exam Respiratory Exam: Decreased Breath Sounds - Cardiovascular Exam Cardiovascular Exam: REGULAR RHYTHM - GI/Abdominal Exam GI & Abdominal Exam: Distended, Soft Assessment and Plan (1) Nephrolithiasis Status: Acute (2) Gram negative sepsis Status: Acute (3) UTI (urinary tract infection) Status: Acute
--- NOTE | 2018-03-05 11:42 | CARD ---
APPROVED REPORT Date of service: 03/01/2018 EKG Measurement Heart [id number] [id number] <Conclusion> Normal sinus rhythm Normal ECG
--- NOTE | 2018-03-05 12:21 | CP.PCM.PN ---
Subjective - Date & Time of Evaluation Date of Evaluation: 03/05/18 Time of Evaluation: 08:00 - Subjective Subjective: findings noted V/Q scan pending appears comfortable CXR with effusions/ atelectasis- possible fluid overload status Objective - Vital Signs/Intake and Output Vital Signs (last 24 hours): Temp Pulse Resp BP Pulse Ox 98 F 65 20 117/77 95 03/05/18 08:25 03/05/18 08:25 03/05/18 08:25 03/05/18 08:25 03/05/18 08:25 Intake and Output: 03/05/18 03/05/18 06:59 18:59 Intake Total 300 Balance 300 - Medications Medications: Current Medications Acetaminophen (Tylenol 325mg Tab) 650 mg PO Q6 PRN PRN Reason: temp 101 and above Last Admin: 03/02/18 23:42 Dose: 650 mg Acetaminophen/Butalbital/Caffeine (Fioricet) 1 tab PO Q4 PRN PRN Reason: Headache Last Admin: 03/05/18 10:21 Dose: 1 tab Albuterol/Ipratropium (Duoneb 3 Mg/0.5 Mg (3 Ml) Ud) 3 ml INH RQ6 PRN PRN Reason: Cough and congestion Ceftriaxone Sodium 2 gm/ (Sodium Chloride) 100 mls @ 100 mls/hr IVPB Q24H [facility] PRN Reason: Protocol Last Admin: 03/05/18 09:59 Dose: 100 mls/hr Ondansetron HCl (Zofran Inj) 4 mg IVP Q8 PRN PRN Reason: nausea and vomitting Last Admin: 03/05/18 05:35 Dose: 4 mg Potassium Phos/Sodium Phos (Neutra-Phos) 1 pkt PO TIDCC [facility] Last Admin: 03/05/18 08:45 Dose: 1 pkt Potassium Phos/Sodium Phos (Neutra-Phos) 1 pkt PO HS [facility] Last Admin: 03/04/18 22:04 Dose: 1 pkt Sertraline HCl (Zoloft) 50 mg PO DAILY [facility] Last Admin: 03/05/18 10:02 Dose: 50 mg - Labs Labs: 03/05/18 10:45 03/05/18 10:45 PT 18.9 SECONDS (9.7-12.2) H 03/01/18 12:56 INR 1.7 03/01/18 12:56 APTT 34 SECONDS (21-34) 03/01/18 12:56 - Constitutional Appears: Non-toxic - Head Exam Head Exam: NORMOCEPHALIC - Eye Exam Eye Exam: PERRL - ENT Exam ENT Exam: Mucous Membranes Dry - Neck Exam Neck Exam: absent: Lymphadenopathy - Respiratory Exam Respiratory Exam: Decreased Breath Sounds, Prolonged Expiratory Phase, Rhonchi - Cardiovascular Exam Cardiovascular Exam: REGULAR RHYTHM - GI/Abdominal Exam GI & Abdominal Exam: Distended, Soft. absent: Tenderness - Rectal Exam Rectal Exam: Deferred - Exam Exam: NORMAL INSPECTION - Extremities Exam Extremities Exam: Pedal Edema - Back Exam Back Exam: absent: CVA tenderness (L), CVA tenderness (R) - Neurological Exam Neurological Exam: Alert, Awake Assessment and Plan (1) Nephrolithiasis Status: Acute (2) Gram negative sepsis Status: Acute (3) UTI (urinary tract infection) Status: Acute - Assessment and Plan (Free Text) Assessment: await v/q scan
--- NOTE | 2018-03-05 12:29 | RAD ---
Date of service: 03/05/2018 HISTORY: r/o chf vs pneumonia COMPARISON: Chest radiographs dated 03/04/2018. TECHNIQUE: Chest PA and lateral FINDINGS: LUNGS: Bibasilar atelectasis. PLEURA: Slight decrease in size of small bilateral pleural effusions. No pneumothorax apparent. CARDIOVASCULAR: Normal. OSSEOUS STRUCTURES: No significant abnormalities. VISUALIZED UPPER ABDOMEN: Normal. OTHER FINDINGS: Right upper extremity PICC, unchanged. IMPRESSION: Slight decrease in pulmonary vascular congestion and small bilateral pleural effusions.
--- NOTE | 2018-03-05 13:09 | NM ---
Date of service: 03/05/2018 COMPARISON: 03/05/2018. Single-view chest TECHNIQUE: 7.2 mCi technetium 99-m Xe-133 Gas. 3.4 mCI technetium 99-m MAA administered intravenously. FINDINGS: VENTILATION COMPONENT: Mildly heterogeneous ventilation PERFUSION COMPONENT: Heterogeneous distribution of radionuclide. No geographic, segmental, lobar abnormalities apparent on the present examination. IMPRESSION: Low probability ventilation perfusion scan for pulmonary embolism. Concordant findings (preliminary report) provided by Mahesh.
--- NOTE | 2018-03-06 00:42 | PN ---
DATE: 03/05/2018 SUBJECTIVE: The patient was seen and examined at bedside this morning. The patient is slightly feeling better but still complaints of difficulty taking deep breaths and complaining of shortness of breath on exertion. Denies any other new complaints. PHYSICAL EXAMINATION: GENERAL: Young female, lying in bed, in no acute distress. VITAL SIGNS: Blood pressure 111/70, pulse 66, respirations 20, temperature 98 degrees Fahrenheit, O2 sat is 97% on room air. HEENT: Pupils equal, round, reacting to light and accommodation. Extraocular muscles intact. No icterus. No pallor. No oral thrush. No pharyngeal congestion. NECK: Supple. No JVD. LUNGS: Bilateral vesicular breath sounds. Bilateral decreased breath sounds at the bases. No wheezing. No rhonchi heard. CVS: S1, S2 present and regular. ABDOMEN: Soft and nontender, bowel sounds present. No guarding, no rigidity. No rebound tenderness noted. NURSING UNIT MANAGER: Alert, awake, oriented x3. No focal deficits noted. EXTREMITIES: No edema. Palpable peripheral pulses. MEDICATIONS: Include Tylenol 650 mg p.o. every 6 hours p.r.n., Fioricet one tab p.o. every 4 hours p.r.n., DuoNeb 3 mL every 6 hours p.r.n., Rocephin 2 g IV daily, Zofran 4 mg IV push every 8 hours p.r.n., Zoloft 50 mg daily. LABORATORY DATA: Labs from this morning, WBC 11.6, hemoglobin 10.5, hematocrit 31, platelets 152,000. Sodium 138, potassium 3.9, chloride 102, bicarb 29, BUN 11, creatinine 0.4, glucose 102, calcium 8.4, phosphorus 3.6, magnesium 1.7, total bili 0.5, AST 24, ALT 31, alkaline phosphatase 85, total protein 5.8, albumin 2.9. Repeat blood cultures negative so far. Chest x-ray done from this morning consistent with slight decrease in pulmonary vascular congestion and small bilateral pleural effusions. V/Q scan is low probability for a PE. ASSESSMENT AND PLAN: Young female with history of Chiari malformation, status post surgery, nephrolithiasis, depression, admitted for left renal colic with left ureteric stone with mild hydronephrosis, gram negative sepsis, status post acute kidney injury and multiple electrolyte imbalance, status post thrombocytopenia, status post fluid overload with persistent shortness of breath and persistent pleural effusion with diuresis, on IV antibiotics. We will continue with Fioricet as needed for her migraine headaches and Neurology input appreciated. We will continue with incentive spirometry and start nebulizer treatments as needed. Continue with Rocephin 2 g IV daily. Repeat cultures are negative so far. We will continue with deep venous thrombosis and gastrointestinal prophylaxis. We will request pulmonary evaluation for her persistent shortness of breath secondary to anxiety. We will continue with physical therapy and ambulation. We will check her oxygenation without oxygen. Follow up with social media developer for discharge planning. Rajiv Krishna MD
[2018-03-06 06:01] LABS: BASO % 0.3 % (0.0-2.0); EOS # 0.3 K/uL (0.0-0.7); EOS % 2.6 % (0.0-4.0); HEMOGLOBIN 10.4 g/dL (11.0-16.0); LYMPH % 17.6 % (20.0-40.0); MEAN CELL VOLUME 89.8 fL (81.0-99.0); MEAN CORPUSCULAR HEMOGLOBIN 29.5 pg (27.0-31.0); MEAN CORPUSCULAR HGB CONC 32.8 g/dL (33.0-37.0); MEAN PLATELET VOLUME 8.5 fL (7.2-11.7); MONO # 1.5 K/uL (0.0-0.8); MONO % 13.5 % (0.0-10.0); NEUT # 7.6 K/uL (1.8-7.0); RBC 3.52 Mil/uL (3.80-5.20); RED CELL DISTRIBUTION WIDTH 13.8 % (11.5-14.5); WHITE BLOOD COUNT 11.5 K/uL (4.8-10.8)
[2018-03-06 06:16] LABS: ALB/GLOB RATIO 1.1 (1.0-2.1); ALBUMIN 3.2 g/dL (3.5-5.0); ALT/SGPT 46 U/L (9-52); AST/SGOT 33 U/L (14-36); BLOOD UREA NITROGEN 15 mg/dL (7-17); CALCIUM 8.6 mg/dl (8.6-10.4); GFR NON-AFRICAN AMERICAN > 60
[2018-03-06] MEDS: Apap-Butalbital-Caffeine 325-50-40mg Tab PO PRN (08:10)
--- NOTE | 2018-03-06 10:02 | CP.PCM.PN ---
Subjective - Date & Time of Evaluation Date of Evaluation: 03/06/18 Time of Evaluation: 10:01 - Subjective Subjective: Progress note dictated #[id number] Objective - Vital Signs/Intake and Output Vital Signs (last 24 hours): Temp Pulse Resp BP Pulse Ox 99.2 F 72 20 127/81 98 03/06/18 08:00 03/06/18 08:00 03/06/18 08:00 03/06/18 08:00 03/06/18 08:00 Intake and Output: 03/06/18 03/06/18 06:59 18:59 Intake Total 450 120 Balance 450 120 - Medications Medications: Current Medications Acetaminophen (Tylenol 325mg Tab) 650 mg PO Q6 PRN PRN Reason: temp 101 and above Last Admin: 03/02/18 23:42 Dose: 650 mg Acetaminophen/Butalbital/Caffeine (Fioricet) 1 tab PO Q4 PRN PRN Reason: Headache Last Admin: 03/06/18 08:10 Dose: 1 tab Albuterol/Ipratropium (Duoneb 3 Mg/0.5 Mg (3 Ml) Ud) 3 ml INH RQ6 PRN PRN Reason: Cough and congestion Ceftriaxone Sodium 2 gm/ (Sodium Chloride) 100 mls @ 100 mls/hr IVPB Q24H [facility]; Protocol Last Admin: 03/05/18 09:59 Dose: 100 mls/hr Ondansetron HCl (Zofran Inj) 4 mg IVP Q8 PRN PRN Reason: nausea and vomitting Last Admin: 03/06/18 08:19 Dose: 4 mg Sertraline HCl (Zoloft) 50 mg PO DAILY [facility] Last Admin: 03/05/18 10:02 Dose: 50 mg - Labs Labs: 03/06/18 05:44 03/06/18 05:44 PT 18.9 SECONDS (9.7-12.2) H 03/01/18 12:56 INR 1.7 03/01/18 12:56 APTT 34 SECONDS (21-34) 03/01/18 12:56
--- NOTE | 2018-03-06 15:05 | CP.PCM.CON ---
History of Present Illness - History of Present Illness History of Present Illness: reason for consultation; shortness of breath 27-year-old female with a history of nephrolithiasis, migraine, she had a malformation who was admitted with left flank pain associated with nausea and vomiting. Patient was initially admitted to intensive care unitfor hypotension. Patient developed shortness of breath and CAT scan of the chest consistent wi bilateral pleural effusion. Review of Systems - Review of Systems All systems: reviewed and no additional remarkable complaints except (shortness of breath) Past Patient History - Past Medical History & Family History Past Medical History?: Yes - Past Social History Smoking Status: Never Smoked - CARDIAC Hx Cardiac Disorders: No - PULMONARY Hx Respiratory Disorders: No - NEUROLOGICAL Other/Comment: Brain malformation surgery x2 yrs ago - HEENT Hx HEENT Problems: No - RENAL Hx Chronic Kidney Disease: No - ENDOCRINE/METABOLIC Hx Endocrine Disorders: No - HEMATOLOGICAL/ONCOLOGICAL Hx Blood Disorders: No - INTEGUMENTARY Hx Dermatological Problems: No - MUSCULOSKELETAL/RHEUMATOLOGICAL Hx Falls: No - GASTROINTESTINAL Hx Gastrointestinal Disorders: No - GENITOURINARY/GYNECOLOGICAL Hx Genitourinary Disorders: No - PSYCHIATRIC Hx Substance Use: No - SURGICAL HISTORY Other/Comment: Right shoulder surgery 2007, wishdom tooth extraction 2007 - ANESTHESIA Hx Anesthesia: No Meds Allergies/Adverse Reactions: Allergies Allergy/AdvReac Type Severity Reaction Status Date / Time No Known Allergies Allergy Unverified 02/27/18 16:47 - Medications Medications: Current Medications Acetaminophen (Tylenol 325mg Tab) 650 mg PO Q6 PRN PRN Reason: temp 101 and above Last Admin: 03/02/18 23:42 Dose: 650 mg Acetaminophen/Butalbital/Caffeine (Fioricet) 1 tab PO Q4 PRN PRN Reason: Headache Last Admin: 03/06/18 08:10 Dose: 1 tab Albuterol/Ipratropium (Duoneb 3 Mg/0.5 Mg (3 Ml) Ud) 3 ml INH RQ6 PRN PRN Reason: Cough and congestion Ceftriaxone Sodium 2 gm/ (Sodium Chloride) 100 mls @ 100 mls/hr IVPB Q24H [facility]; Protocol Last Admin: 03/05/18 09:59 Dose: 100 mls/hr Ondansetron HCl (Zofran Inj) 4 mg IVP Q8 PRN PRN Reason: nausea and vomitting Last Admin: 03/06/18 08:19 Dose: 4 mg Sertraline HCl (Zoloft) 50 mg PO DAILY [facility] Last Admin: 03/05/18 10:02 Dose: 50 mg Physical Exam - Head Exam Head Exam: ATRAUMATIC, NORMOCEPHALIC - Eye Exam Eye Exam: Normal appearance - ENT Exam ENT Exam: Mucous Membranes Moist - Neck Exam Neck exam: Positive for: Normal Inspection - Respiratory Exam Respiratory Exam: Clear to Auscultation Bilateral - Cardiovascular Exam Cardiovascular Exam: REGULAR RHYTHM - GI/Abdominal Exam GI & Abdominal Exam: Normal Bowel Sounds, Soft - Extremities Exam Extremities exam: Positive for: normal inspection Results - Vital Signs Recent Vital Signs: Last Vital Signs Temp 99.2 F 03/06/18 08:00 Pulse 72 03/06/18 08:00 Resp 20 03/06/18 08:00 BP 127/81 03/06/18 08:00 Pulse Ox 98 03/06/18 08:00 - Labs Result Diagrams: 03/06/18 05:44 03/06/18 05:44 Labs: Laboratory Results - last 24 hr 03/06/18 03/06/18 05:44 05:44 WBC 11.5 H RBC 3.52 L Hgb 10.4 L Hct 31.6 L MCV 89.8 MCH 29.5 MCHC 32.8 L RDW 13.8 Plt Count 205 MPV 8.5 Neut % (Auto) 66.0 Lymph % (Auto) 17.6 L [place] % (Auto) 13.5 H Eos % (Auto) 2.6 Baso % (Auto) 0.3 Neut # (Auto) 7.6 H Lymph # (Auto) 2.0 [place] # (Auto) 1.5 H Eos # (Auto) 0.3 Baso # (Auto) 0.0 Sodium 139 Potassium 4.2 Chloride 102 Carbon Dioxide 28 Anion Gap 13 BUN 15 Creatinine 0.4 L Est GFR ( Amer) > 60 Est GFR (Non-Af Amer) > 60 Random Glucose 94 Calcium 8.6 Phosphorus 4.2 Magnesium 1.8 Total Bilirubin 0.2 AST 33 ALT 46 Alkaline Phosphatase 88 Total Protein 6.1 L Albumin 3.2 L Globulin 2.9 Albumin/Globulin Ratio 1.1 Assessment & Plan (1) Pleural effusion Status: Acute Comment: bilateral pleural effusionssecondary to fluid overload. Patient states that she is breathing much better after she received Lasix. Continue antibiotics. Stable from pulmonary standpoint (2) Gram negative sepsis Status: Acute (3) Nephrolithiasis Status: Acute
--- NOTE | 2018-03-06 17:05 | RAD ---
Date of service: 03/06/2018 HISTORY: left flank pain COMPARISON: 03/01/2018 KUB FINDINGS: BOWEL: Normal. No obstruction. No free air. BONES: Normal. OTHER FINDINGS: Interval placement of a double-J left ureteral stent. No left-sided urolithiasis appreciated. Left hemipelvic phleboliths noted. Punctate 1 to 2 mm right renal [id number]-[id number] IMPRESSION: Interval left ureteral stent placed. Identification of left sided urolithiasis not appreciated. Tiny right renal parenchymal calcifications/calculi similar
--- NOTE | 2018-03-07 00:23 | PN ---
DATE: 03/06/2018 SUBJECTIVE: The patient was seen and examined at bedside. The patient is feeling much better. Less shortness of breath, ambulating well. Tolerating p.o. feeds, but still getting Zofran every 8 hours until this morning. Denies any abdominal pain. Denies any urinary complaints. She was able to sleep without oxygen. PHYSICAL EXAMINATION: GENERAL: Young female, lying in bed, in no acute distress. VITAL SIGNS: Blood pressure 100/65, pulse 60, respirations 20, temperature 98.1 degrees Fahrenheit, O2 saturation is 100% on room air. HEENT: Pupils equal, round, and reacting to light and accommodation. Extraocular muscles are intact. No icterus. No pallor. No oral thrush. No pharyngeal congestion. NECK: Supple. No JVD. LUNGS: Bilateral basal decreased breath sounds. No wheezing. No rhonchi. CVS: S1 and S2 present. Regular. ABDOMEN: Soft and nontender. Bowel sounds present. No guarding. No rigidity. No rebound tenderness noted. BAIT TIER: Alert, awake, and oriented x3. No focal deficits noted. EXTREMITIES: No edema. Palpable peripheral pulses. MEDICATIONS: Include Tylenol 650 mg p.o. every 6 hours p.r.n., Fioricet one tab every four hours p.r.n., DuoNeb as needed, Rocephin 2 g IV daily, Zoloft 50 mg daily. LABORATORY DATA: Labs from this morning WBC 11.5, hemoglobin 10.4, hematocrit 31.6, platelets 205. Sodium 139, potassium 4.2, chloride 102, bicarb 28, BUN 15, creatinine 0.4, glucose 94, calcium 8.6, phosphorus 4.2, magnesium 1.8, total bilirubin 0.2, AST 33, ALT 46, alkaline phosphatase 88, total protein 6.1, and albumin 3.2. Abdominal x-ray, interval left ureteral stent placed; identification of left sided urolithiasis not appreciated; tiny right renal parenchymal calcifications, calculi . ASSESSMENT AND PLAN: Young female with history of Chiari malformation, status post surgery, history of renal stones, depression, admitted for left renal colic with left ureteric stone, status post stent placement, gram negative sepsis, multiple electrolyte abnormalities, status post acute kidney injury, fluid overload, bilateral pleural effusions improving, but the patient is still requiring antiemetic medication every eight hours. Discussed with patient at length, we will discontinue Zofran today. We will discontinue oxygen. Request pulmonary evaluation. We will continue with Rocephin 2 g IV daily. We will continue with Fioricet as needed. The patient is ambulating well. Advised to use incentive spirometry. Discussed with Dr. Banks. The patient is clear for discharge. If the patient is clinically stable and cleared by all the consultants, we will plan discharging the patient home in a.m. on p.o. antibiotics. Rajiv Krishna MD
[2018-03-07] MEDS: Apap-Butalbital-Caffeine 325-50-40mg Tab PO PRN ×2 (00:36→08:49)
[2018-03-07 08:13] VITALS: BP 112/71; PULSE 81; TEMP 98.4; O2SAT 98
[2018-03-07] MEDS: cefTRIAXone 2 GM in Sodium Chloride 0.9% 100 ML IVPB SCH (09:48)
--- NOTE | 2018-03-07 12:28 | CP.PCM.PN ---
Subjective - Date & Time of Evaluation Date of Evaluation: 03/07/18 Time of Evaluation: 08:00 - Subjective Subjective: improving no chest pain or SOB denies fever Objective - Vital Signs/Intake and Output Vital Signs (last 24 hours): Temp Pulse Resp BP Pulse Ox 98.4 F 81 20 112/71 98 03/07/18 08:10 03/07/18 08:10 03/07/18 08:10 03/07/18 08:10 03/07/18 08:10 Intake and Output: 03/07/18 03/07/18 06:59 18:59 Intake Total 180 Balance 180 - Medications Medications: Current Medications Acetaminophen (Tylenol 325mg Tab) 650 mg PO Q6 PRN PRN Reason: temp 101 and above Last Admin: 03/06/18 21:11 Dose: 650 mg Acetaminophen/Butalbital/Caffeine (Fioricet) 1 tab PO Q4 PRN PRN Reason: Headache Last Admin: 03/07/18 08:49 Dose: 1 tab Albuterol/Ipratropium (Duoneb 3 Mg/0.5 Mg (3 Ml) Ud) 3 ml INH RQ6 PRN PRN Reason: Cough and congestion Last Admin: 03/06/18 20:00 Dose: 3 ml Sertraline HCl (Zoloft) 50 mg PO DAILY [facility] Last Admin: 03/07/18 09:48 Dose: 50 mg - Labs Labs: 03/06/18 05:44 03/06/18 05:44 PT 18.9 SECONDS (9.7-12.2) H 03/01/18 12:56 INR 1.7 03/01/18 12:56 APTT 34 SECONDS (21-34) 03/01/18 12:56 - Constitutional Appears: No Acute Distress - Head Exam Head Exam: NORMOCEPHALIC - Eye Exam Eye Exam: EOMI, PERRL. absent: Scleral icterus - ENT Exam ENT Exam: Mucous Membranes Dry - Neck Exam Neck Exam: absent: Lymphadenopathy - Respiratory Exam Respiratory Exam: Decreased Breath Sounds, Clear to Ausculation Bilateral - Cardiovascular Exam Cardiovascular Exam: REGULAR RHYTHM, +S1, +S2 - GI/Abdominal Exam GI & Abdominal Exam: Soft. absent: Tenderness - Rectal Exam Rectal Exam: Deferred - Exam Exam: NORMAL INSPECTION - Extremities Exam Extremities Exam: absent: Pedal Edema - Back Exam Back Exam: absent: CVA tenderness (L), CVA tenderness (R) - Neurological Exam Neurological Exam: Alert, Awake, CN II-XII Intact, Oriented x3 Neuro motor strength exam: Left Upper Extremity: 5, Right Upper Extremity: 5, Left Lower Extremity: 5, Right Lower Extremity: 5 - Psychiatric Exam Psychiatric exam: Normal Mood - Skin Skin Exam: Dry Assessment and Plan (1) Nephrolithiasis Status: Acute (2) Gram negative sepsis Status: Acute (3) UTI (urinary tract infection) Status: Acute - Assessment and Plan (Free Text) Assessment: improving on IV rx ok to transition to PO rx for 7 days more with follow up
--- NOTE | 2018-03-07 12:37 | CP.PCM.PN ---
Subjective - Date & Time of Evaluation Date of Evaluation: 03/07/18 Time of Evaluation: 12:37 - Subjective Subjective: Discharge summary dictated #[id number] Objective - Vital Signs/Intake and Output Vital Signs (last 24 hours): Temp Pulse Resp BP Pulse Ox 98.4 F 81 20 112/71 98 03/07/18 08:10 03/07/18 08:10 03/07/18 08:10 03/07/18 08:10 03/07/18 08:10 Intake and Output: 03/07/18 03/07/18 06:59 18:59 Intake Total 180 Balance 180 - Medications Medications: Current Medications Acetaminophen (Tylenol 325mg Tab) 650 mg PO Q6 PRN PRN Reason: temp 101 and above Last Admin: 03/06/18 21:11 Dose: 650 mg Acetaminophen/Butalbital/Caffeine (Fioricet) 1 tab PO Q4 PRN PRN Reason: Headache Last Admin: 03/07/18 08:49 Dose: 1 tab Albuterol/Ipratropium (Duoneb 3 Mg/0.5 Mg (3 Ml) Ud) 3 ml INH RQ6 PRN PRN Reason: Cough and congestion Last Admin: 03/06/18 20:00 Dose: 3 ml Sertraline HCl (Zoloft) 50 mg PO DAILY BETHANY Last Admin: 03/07/18 09:48 Dose: 50 mg - Labs Labs: 03/06/18 05:44 03/06/18 05:44 PT 18.9 SECONDS (9.7-12.2) H 03/01/18 12:56 INR 1.7 03/01/18 12:56 APTT 34 SECONDS (21-34) 03/01/18 12:56
--- NOTE | 2018-03-08 10:53 | DS ---
DISCHARGE DIAGNOSES: Gram-negative sepsis; left ureteral stone with left hydronephrosis; left renal colic, status post cystoscopy and left ureteral stent placement; status post fluid overload; status post acute kidney injury; status post multiple electrolyte imbalances, improved; history of Chiari malformation, status post surgery; history of renal stones; history of depression; headache, improving. HISTORY OF PRESENT ILLNESS: Ms. Chikis Owens is a 27-year-old female with past medical history of Chiari malformation, status post surgery about five years ago; history of renal stones, never underwent lithotripsy; depression, who has been on Zoloft recently since the beginning of the year; came into the hospital with left lumbar region and lower quadrant abdominal pain associated with nausea, vomiting, and severe abdominal pain. In the ED, the patient was found to be having left ureteral stone with mild hydronephrosis, and the patient is being admitted for further management. Today, the patient is doing well. Denies any headache or dizziness. Denies any chest pain, shortness of breath, or wheezing. Denies any nausea, vomiting, abdominal pain, diarrhea, or constipation. Denies any urinary complaints. Denies any leg pains or leg cramps. Denies any other neurologic symptoms. REVIEW OF SYSTEMS: All other systems reviewed and were found to be negative. PHYSICAL EXAMINATION: GENERAL: A young female, lying in bed, in no acute distress. VITAL SIGNS: Blood pressure 112/71, pulse 81, respirations 20, temperature 98.4 degrees Fahrenheit, and O2 saturations 98% on room air. HEENT: Pupils equal, round, and reacting to light and accommodation. Extraocular muscles intact. No icterus. No pallor. No oral thrush. No pharyngeal congestion. NECK: Supple. No JVD. LUNGS: Bilateral vesicular breath sounds. No wheezing. No rhonchi. CVS: S1, S2 present and regular. ABDOMEN: Soft and nontender. Bowel sounds present. No guarding. No rigidity. No rebound tenderness noted. WATER PURIFIER OPERATOR: Alert, awake, and oriented x3. No focal deficits noted. EXTREMITIES: No edema. Palpable peripheral pulses. LABORATORY DATA: Labs from 03/06/2018, WBC 11.5, hemoglobin 10.4, hematocrit 31.6, platelets 205. Sodium 139, potassium 4.2, chloride 102, bicarb 28, BUN 15, creatinine 0.4, glucose 94. Calcium 8.6, phosphorus 4.2, magnesium 1.8. Total bilirubin 0.2, AST 33, ALT 46, alkaline phosphatase 88. Total protein 6.1, albumin 3.2. Urine culture consistent with E. coli, pansensitive. Blood cultures, the same E. coli. Repeat cultures from 03/02/[address] of head, negative. Chest x-ray, improving infiltrates with small pleural effusions. V/Q scan negative for any PE. On admission, abdomen and pelvis CT consistent with a 3 mm proximal left ureteral calculus with proximal hydroureter and fullness of the left renal pelvis. Upper extremity and lower extremity scan negative for any DVT. HOSPITAL COURSE: The patient was admitted to the hospital for left renal colic intractable pain. The patient developed fever, and the patient had persistent vomiting. Urine culture and blood cultures were done and started on antibiotics, but the patient was complaining of persistent pain for which she received multiple doses of morphine. The patient's blood pressure was low despite multiple fluid boluses. INFORMATION SECURITY SYSTEMS INSTRUCTOR was called, and the patient was transferred to ICU. The patient was given gentamicin and meropenem. The patient was evaluated by ID. The patient was also seen by Dr. Banks. After the patient was transferred to ICU, the patient received multiple fluid boluses. Repeat CT did not show any stone, but the patient persistently complained of abdominal pain for which she underwent cystoscopy and left ureteral stent placement by Urology. The patient developed bilateral pleural effusions, possibly from fluid overload and developed acute kidney injury. The patient was evaluated by Renal. Her fluids were held. After the patient was stabilized, received multiple doses of diuretics with which her symptoms improved. After the patient was stabilized, the patient was transferred to the floor, and repeat blood cultures were negative. ID recommended total 14 days of antibiotics which she received one week of IV, and the patient was given p.o. Keflex to complete the course. After the patient was transferred to the floor, the patient was persistently complaining of dyspnea on exertion for which the patient was evaluated by Pulmonary, and Pulmonary cleared the patient. Her hospital course was also complicated by recurrent headaches for which the patient received multiple doses of valproic acid and sumatriptan one dose and given multiple doses of Fioricet. Evaluated by Neurology. Head CT was negative. The patient's headache improved. This morning, the patient is otherwise doing well and cleared by all the consultants. As the patient is otherwise hemodynamically stable, the patient is being discharged and advised to follow up with the consultants and the primary. Discussed with the patient at length, clarified all her questions and concerns. The patient's parents, both mother and father, were at bedside. All their questions were answered and clarified. Advised the patient to follow up with PMD. CONDITION UPON DISCHARGE: The patient is alert, awake, oriented x3, and hemodynamically stable at the time of discharge. DISCHARGE INSTRUCTIONS: Follow up with PMD. Follow up with Neurology. Follow up with Urology. Follow up with her Psychiatry. DISCHARGE MEDICATIONS: Keflex 500 mg p.o. every 8 hours for one week, Bacid one cap p.o. b.i.d., Fioricet one cap p.o. every 8 hours p.r.n. Advised to continue with Zoloft 50 mg daily. DISCHARGE DIET: Regular. ACTIVITY: As tolerated. Please also refer to discharge instruction sheet given at the time of discharge. Rajiv Krishna MD
== END 2018-03-07 16:13 | disposition home or self-care (01) | DRG 584 ==
LOC: C.ER 16:42 → C.9E 20:53 → OBSVTOIN 20:53 → C.3T 21:48 → C.9I 03-01 00:57 → C.3T 03-03 21:09 → C.9I 03-03 21:53 → C.3T 03-04 08:22
PROVIDERS: ADMIT Internal Medicine; ATTEND Internal Medicine
PROC: 0T778DZ Dilation of Left Ureter with Intraluminal Device, Via Natural or Artificial Opening Endoscopic (ICD-10-PCS; principal; 2018-03-01 13:15)
PROC: 02HV33Z Insertion of Infusion Device into Superior Vena Cava, Percutaneous Approach (ICD-10-PCS; 2018-03-02)
DX: A41.51 Sepsis due to Escherichia coli [E. coli] (principal); R65.21 Severe sepsis with septic shock; J96.01 Acute respiratory failure with hypoxia; N17.0 Acute kidney failure with tubular necrosis; D69.6 Thrombocytopenia, unspecified; E87.6 Hypokalemia; I42.9 Cardiomyopathy, unspecified; I50.9 Heart failure, unspecified; J98.11 Atelectasis; N13.6 Pyonephrosis; E83.42 Hypomagnesemia; E86.0 Dehydration; G93.5 Compression of brain; R79.1 Abnormal coagulation profile

== ENCOUNTER 2018-03-26 11:35 | Day surgery (SDC) | payer MEDICAID ==
[2018-03-26] MEDS ORDERED: Gentamicin 160 MG in Sodium Chloride 0.9% 100 ML IVPB ONE (12:15)
[2018-03-26] MEDS ORDERED: Ciprofloxacin 400mg/200ml D5W 400 MG/200 ML BAG IVPB ONE (14:04)
[2018-03-26] MEDS ORDERED: Iohexol 240 (50 ml) ONE ×2 (14:05→14:08)
[2018-03-26] MEDS ORDERED: Lidocaine 2% Jelly (Uro-Jet) ONE (14:05)
[2018-03-26] MEDS ORDERED: Propofol 10 mg/ml Inj (20 ML) ONE (14:20)
[2018-03-26] MEDS ORDERED: Midazolam 2 MG/2 ML VIAL ONE (14:20)
--- NOTE | 2018-03-26 14:44 | PCM.SURG1 ---
Surgeon's Initial Post Op Note - Surgeon's Notes Surgeon: Jocelny Manager Marketing: TYRESE Type of Anesthesia: General LMA Anesthesia Administered By: staff Pre-Operative Diagnosis: Left ureteral stent/ureteral calculi Operative Findings: Left ureteral stent no evidence of calculi Post-Operative Diagnosis: no evidence of calclui Operation Performed: Ureteroscopy and removal of ureteral stent Specimen/Specimens Removed: stent Estimated Blood Loss: EBL {In ML}: 0 Blood Products Given: N/A Drains Used: No Drains Post-Op Condition: Good Date of Surgery/Procedure: 03/26/18 Time of Surgery/Procedure: 14:44
[2018-03-26] MEDS ORDERED: HYDROmorphone 0.5 mg/0.5 ml ISec IVP PRN (14:56)
[2018-03-26] MEDS ORDERED: Lactated Ringer's 1,000 ML IV SCH (15:00)
[2018-03-26 15:03] VITALS: O2SAT 100
[2018-03-26 15:58] VITALS: RESP 18; TEMP 97
--- NOTE | 2018-03-26 16:59 | RAD ---
Date of service: 03/26/2018 HISTORY: LT URETERAL CALCULI COMPARISON: 03/06/2018 FINDINGS: BOWEL: Constipation without fecal impaction or obstruction. BONES: Normal. OTHER FINDINGS: Position of the double J stent catheter(s): Satisfactory and unchanged compared to the prior study. IMPRESSION: No significant or acute findings to account for/ related to the clinical presentation. No significant interval change compared to the prior examination(s).
--- NOTE | 2018-03-26 16:59 | RAD ---
Date of service: 03/26/2018 PROCEDURE: Intraoperative Fluoroscopy. HISTORY: LT URETERAL CALCULI FINDINGS: Fluoroscopic assistance was provided for calculus disease. Please refer to the operative report from [facility]. Total fluoroscopic time (continuous mode) utilized during the procedure 6.2 (seconds). Dose report: DLP (mGy/ m2) 0.2279
[2018-03-26 17:49] VITALS: BP 117/70; PULSE 60
--- NOTE | 2018-03-28 02:14 | OP ---
PROCEDURE DATE: 03/26/2018 PREOPERATIVE DIAGNOSES: Retained ureteral stent and possibly ureteral calculi. POSTOPERATIVE DIAGNOSIS: Retained ureteral stent and possibly ureteral calculi. PROCEDURES: Cystoscopy, removal of stent, left ureteroscopy. FINDINGS: No evidence of ureteral calculi. DESCRIPTION OF PROCEDURE: The procedure is as follows: Prior to the procedure, a detailed informed consent was obtained. An explanation of the risks, benefits, and alternatives of the procedure was carried out. The patient was brought into the room. She received prophylactic antibiotics. She was cystoscoped with #[id number] Storz panendoscope. The bladder was inspected thoroughly. There were no stones or tumors. The left ureteral orifice showed a stent protruding through it. It was grasped and the tip was pulled out of the urethral meatus. A guidewire was passed through the stent and up into the renal pelvis. The stent was backed up. The cystoscope was then removed, and the wire was left in place. Ureteroscope was passed over the second wire. The wire was passed up ureteral orifice next to the original wire, and the scope was passed all the way up to the ureteropelvic junction. No stones were seen. Based on these findings and lack of x-ray evidence of the stone, it was elected to remove the stent. Therefore, both wires and scope were removed. The patient tolerated this procedure well and was sent to the recovery room in good condition. The mother and the daughter were given instructions to follow up and postoperative care and management of any possible complications. Param Banks MD
== END 2018-03-26 16:11 | disposition home or self-care (01) ==
LOC: C.SDS 11:35
PROVIDERS: ATTEND Urology
DX: Z46.6 Encounter for fitting and adjustment of urinary device (principal)
CPT/HCPCS: 52310; 74018; 88300; C1758; C1769; J0744; J1580